=== PATIENT | male | born 1955 | race Caucasian/White ===

== ENCOUNTER 2016-05-22 08:26 | Emergency (ER) | payer MEDICARE, OTHER ==
[2016-05-22 08:47] VITALS: BP 179/86; PULSE 76; RESP 20; TEMP 97.8
[2016-05-22] MEDS ORDERED: HYDROcodone/APAP 5-325MG 1 EACH TAB PO STA (08:55)
--- NOTE | 2016-05-22 09:00 | ED ---
General Adult HPI - General Chief complaint: Abdominal Pain Stated complaint: Shingles Time Seen by Provider: 05/22/16 08:49 Source: patient, RN notes reviewed Mode of arrival: ambulatory Limitations: no limitations - History of Present Illness Initial comments: 61-year-old male presents to the emergency Department chief complaint of left- sided abdominal pain. Patient states that he has been having this pain for the last week or so. Patient states he went to his doctor he was diagnosed with shingles he was started on antiviral. Patient states he stopped taking it because he felt that he is having symptoms to it. Patient states she is not given steroids or any pain medication. Patient states the pain just keeps getting worse. Patient states the whole left side of his abdomen he states he just scratches his skin or even where his T-shirt it causes some have increased pain. Patient states he cannot sleep due to the pain. Patient has not been taking any pain medication for this. He denies any fever chills any nausea vomiting. Patient states his belly pain feels more on the skin where the shingles is. Patient states he is just so uncomfortable 3 thought that he should be evaluated. Patient states that he hasn't had any other symptoms with this. Patient does admit to a history of shingles in the past. Patient denies any recent fever, chills, shortness of breath, chest pain, back pain, nausea vomiting, numbness or tingling, dysuria or hematuria, constipation or diarrhea, headaches or visual changes, or any other current symptoms. - Related Data Previous Rx's Medication Instructions Recorded Famciclovir [Famvir] 500 mg PO Q8HR #21 tablet 05/22/16 Hydrocodone/Acetaminophen [Lockhart 1 each PO Q6HR PRN #20 tab 05/22/16 5-325] methylPREDNISolone Dose Pack 4 mg PO DIRECTED #21 package 05/22/16 [Medrol Dose Pack] Allergies Allergy/AdvReac Type Severity Reaction Status Date / Time Penicillins Allergy Unknown Verified 05/22/16 08:47 poison oak extract Allergy Unknown Verified 05/22/16 08:47 poison sumac extract Allergy Unknown Verified 05/22/16 08:47 prochlorperazine Allergy Unknown Verified 05/22/16 08:47 [From Compazine] Review of Systems ROS Statement: Those systems with pertinent positive or pertinent negative responses have been documented in the HPI. ROS Other: All systems not noted in ROS Statement are negative. Past Medical History Additional Past Medical History / Comment(s): shingles History of Any Multi-Drug Resistant Organisms: None Reported Past Surgical History: Joint Replacement, Orthopedic Surgery Additional Past Surgical History / Comment(s): cervical fusion, right hip replacement, sinus surgery Past Psychological History: No Psychological Hx Reported Smoking Status: Current every day smoker Past Alcohol Use History: Occasional Past Drug Use History: None Reported General Exam Limitations: no limitations General appearance: alert, in no apparent distress Eye exam: Present: normal appearance, PERRL, EOMI. Absent: scleral icterus, conjunctival injection, periorbital swelling ENT exam: Present: normal exam, mucous membranes moist Neck exam: Present: normal inspection. Absent: tenderness, meningismus, lymphadenopathy Respiratory exam: Present: normal lung sounds bilaterally. Absent: respiratory distress, wheezes, rales, rhonchi, stridor Cardiovascular Exam: Present: regular rate, normal rhythm, normal heart sounds. Absent: systolic murmur, diastolic murmur, rubs, gallop, clicks GI/Abdominal exam: Present: soft, normal bowel sounds. Absent: distended, tenderness, guarding, rebound, rigid Neurological exam: Present: alert, oriented X3, CN II-XII intact. Absent: motor sensory deficit Skin exam: Present: warm, dry, intact, rash (Vesicular type rash along the left side starting in the back wrapping around the front does not cross midline), other (Patient has sensation to the slightness scratch his skin causing pain) Course Vital Signs 05/22/16 08:43 Temperature 97.8 F Pulse Rate 76 Respiratory 20 Rate Blood Pressure 179/86 O2 Sat by Pulse 99 Oximetry Medical Decision Making - Medical Decision Making 61-year-old male presents with appears to be shingles. At this time we will start the patient on famciclovir as well as steroids as well as pain medication. We did discuss taking these medications prescribed we discussed return parameters and follow-up. Patient stated that he understood and all questions have been answered. This time the patient will be discharged home. Disposition Clinical Impression: Herpes zoster Disposition: HOME SELF-CARE Condition: Stable Instructions: Shingles (ED) Additional Instructions: Please use medication as discussed. Please follow up with family doctor if symptoms have not improved over the next two days. Please return to the emergency room if your symptoms increase or worsen or for any other concerns. Prescriptions: Famciclovir [Famvir] 500 mg PO Q8HR #21 tablet Hydrocodone/Acetaminophen [Lockhart 5-325] 1 each PO Q6HR PRN #20 tab PRN Reason: Pain methylPREDNISolone Dose Pack [Medrol Dose Pack] 4 mg PO DIRECTED #21 package Referrals: None,Stated [Primary Care Provider] - 1-2 days Emily Nichole MD [STAFF PHYSICIAN] - 1-2 days Time of Disposition: 08:59
[2016-05-22] MEDS ORDERED: methylPREDNISolone SOD SUCCI 125 MG/2 ML VIAL IM ONE (09:13)
== END 2016-05-22 09:25 | disposition home or self-care (01) ==
LOC: EC 08:26
DX: B02.9 Zoster without complications (principal); R10.9 Unspecified abdominal pain; F17.200 Nicotine dependence, unspecified, uncomplicated; Z88.0 Allergy status to penicillin; Z88.8 Allergy status to other drugs, medicaments and biological substances
CPT/HCPCS: 99283; 96372; J2930

== ENCOUNTER → 2016-06-15 | Outpatient (CLI) | payer MEDICARE ==
--- NOTE | 2016-06-15 08:56 | CT ---
EXAMINATION TYPE: CT abdomen w con DATE OF EXAM: 06/15/2016 8:38 AM COMPARISON: NONE HISTORY: 61-year-old male with abdominal pain, LLQ pain TECHNIQUE: Contiguous axial scanning of the abdomen following administration of 100 ml Omnipaque 300 IV contrast. Delayed images through the kidneys and coronal/sagittal reconstructions performed. CT DLP: 1198.2 mGycm Automated exposure control for dose reduction was used. FINDINGS: The heart is normal size without pericardial effusion. Lung bases are clear without pleural effusion. On portal venous phase, there is diminished attenuation of the liver as compared to the spleen. A 1. 9 cm area of nodular enhancement which follows the blood pool within the posterior right hepatic lobe , axial image 18 most likely represents a hemangioma. Portal venous system is patent. No biliary duct al dilatation. Gallbladder, adrenal glands, right kidney, spleen, and pancreas appear within normal limits. There is symmetric uptake and excretion of contrast by both kidneys but a striated area of hypodensit y within the posterior lower pole left kidney, delayed series axial image 36, which may relate to vipul e perfusion variation. No dilated small bowel, free fluid, or free air. Scattered nonenlarged external and retroperitoneal lymph nodes are seen. No lymphadenopathy by CT siz e criteria. Appendix is normal. There is moderate stool burden and mild left hemicolonic diverticulosis without p ericolonic inflammatory change. The pelvis is not imaged. Moderate atherosclerotic calcifications within the abdominal aorta with a couple areas of focal ectas ia of the infrarenal abdominal aorta measuring 2.9 and 2.5 cm, respectively, on axial images 35 and 4 2. No traci AAA. Bones: Degenerative changes lower lumbar spine. No osseous destructive process. IMPRESSION: 1. A STRIATED AREA OF HYPODENSITY WITHIN THE POSTERIOR LOWER POLE LEFT KIDNEY MAY REPRESENT SOME TYPE OF PERFUSION VARIATION. CORRELATE FOR ANY CLINICAL SIGNS/SYMPTOMS OF PYELONEPHRITIS. 2. HEPATIC STEATOSIS. CORRELATE WITH LFT's, LIPID PROFILE, AND PATIENT RISK FACTORS. 3. MODERATE ATHEROSCLEROTIC CALCIFICATIONS OF THE ABDOMINAL AORTA WITH A COUPLE AREAS OF FUSIFORM ECT EJ OF THE INFRARENAL ABDOMINAL AORTA MEASURING UP TO 2.9 CM. 4. MILD LEFT HEMICOLONIC DIVERTICULOSIS.
== END | disposition home or self-care (01) ==
LOC: RADCTMAIN 07:56
PROVIDERS: ATTEND Family Medicine
DX: I77.811 Abdominal aortic ectasia (principal); K76.0 Fatty (change of) liver, not elsewhere classified; K57.30 Diverticulosis of large intestine without perforation or abscess without bleeding; I70.0 Atherosclerosis of aorta; N28.89 Other specified disorders of kidney and ureter
CPT/HCPCS: 74160; Q9967; 81001; 87086

== ENCOUNTER → 2016-06-20 | Outpatient (CLI) | payer MEDICARE ==
--- NOTE | 2016-06-20 10:52 | US ---
EXAMINATION TYPE: US duplex aorta DATE OF EXAM: 06/20/2016 9:12 AM COMPARISON: NONE CLINICAL HISTORY: 61-year-old male with abnormal CT R93.429 N92.8, known Renal Disease. TECHNIQUE: Multiple sonographic images of the abdominal aorta were obtained. FINDINGS: EXAM MEASUREMENTS: Abdominal Aorta: Proximal: 2.0 Mid: 1.8 Distal: 1.7 Bifurcation: obscured by overlying bowel gas TECHNOLOGIST NOTES: Patient had extensive peristalsing bowel gas making exam technically difficult, not all portions of aorta visualized IMPRESSION: Limited exam as there is extensive bowel gas obscuring portions of the aorta. Not all portions were e valuated. The fusiform ectasia seen on CT of 06/15/2016 is not appreciable on the current exam.
--- NOTE | 2016-06-20 11:04 | US ---
EXAMINATION TYPE: US kidneys/renal and bladder DATE OF EXAM: 06/20/2016 9:02 AM COMPARISON: Correlation CT 06/15/2016 CLINICAL HISTORY: 61-year-old male abnormal CT R93.429, N92.8 known Renal Disease. TECHNIQUE: Multiple sonographic images of the kidneys and bladder were obtained. FINDINGS: Right Kidney: 11.8 x 5.4x 5.0 cm Left Kidney: 11.0 x 5.6 x 5.2 cm There is no hydronephrosis on either side. Partial distention of the bladder limits its evaluation. IMPRESSION: No hydronephrosis. Partial distention of the bladder limits its evaluation.
== END ==
LOC: RADUSWWP 08:07
PROVIDERS: ATTEND Family Medicine
DX: N32.89 Other specified disorders of bladder (principal); R93.429 Abnormal radiologic findings on diagnostic imaging of unspecified kidney
CPT/HCPCS: 76770; 93979

== ENCOUNTER 2016-09-27 12:29 | Day surgery (SDC) | payer MEDICARE ==
[2016-09-25 09:35] VITALS: BMI 29.1
[~2016-09-27 12:29] MED LIST: LACTATED RINGERS 1,000 ML IV SCH; LIDOCAINE 1% 20 ML VIAL (10MG/ML) FOR IV START INTRADERMA PRN
[2016-09-27 12:43] VITALS: RESP 16; TEMP 97.6
[2016-09-27] MEDS ORDERED: PROPOFOL 10 MG/ML 20 ML VIAL IV ONE (13:00)
[2016-09-27] MEDS ORDERED: LIDOCAINE 1% INJ 10MG/ML (20 ML MDV) ONE (13:00)
[2016-09-27] MEDS ORDERED: GLUCAGON 1 MG/ML VIAL ONE (13:00)
--- NOTE | 2016-09-27 13:17 | P.GSHP ---
History of Present Illness H&P Date: 09/27/16 Chief Complaint: Screening colonoscopy This is a 61-year-old male who presents today for screening colonoscopy. His last colonoscopy was approximately 30 years ago. He denies a significant GI complaints. - Constitutional Constitutional: Reports as per HPI Past Medical History Past Medical History: Asthma, Cancer, Skin Disorder, Sleep Apnea/CPAP/BIPAP Additional Past Medical History / Comment(s): childhood asthma, no cpap used, abdominal pain and bloating, arthritis in back,neck and knees, rosacea, urinary leakage, hx skin cancer History of Any Multi-Drug Resistant Organisms: None Reported Past Surgical History: Joint Replacement, Orthopedic Surgery Additional Past Surgical History / Comment(s): cervical fusion, right hip replacement, septoplasty, arthroscopy rt knee Past Anesthesia/Blood Transfusion Reactions: No Reported Reaction Smoking Status: Current every day smoker - Past Family History Mother Family Medical History: Cancer Medications and Allergies Home Medications Medication Instructions Recorded Confirmed Type Dextroamphetamine/Amphetamine 20 mg PO QAM 05/22/16 09/27/16 History [Adderall] Pregabalin [Lyrica] 100 mg PO BID 09/25/16 09/27/16 History Sertraline HCl [Zoloft] 25 mg PO DAILY 09/25/16 09/27/16 History Allergies Allergy/AdvReac Type Severity Reaction Status Date / Time acyclovir Allergy Swelling Verified 09/25/16 09:17 Penicillins Allergy Unknown Verified 09/25/16 09:17 poison dylon extract Allergy Unknown Verified 09/25/16 09:17 poison oak extract Allergy Unknown Verified 09/25/16 09:17 poison sumac extract Allergy Unknown Verified 09/25/16 09:17 prochlorperazine Allergy Unknown Verified 09/25/16 09:17 [From Compazine] Surgical - Exam Vital Signs Temp Pulse Resp BP Pulse Ox 97.6 F 80 16 142/60 99 09/27/16 12:42 09/27/16 12:42 09/27/16 12:42 09/27/16 12:42 09/27/16 12:42 - General well developed, no distress - Eyes PERRL - ENT normal pinna - Neck no masses - Respiratory normal expansion - Cardiovascular Rhythm: regular - Abdomen Abdomen: soft, non tender Assessment and Plan Plan: We'll perform screening colonoscopy.
--- NOTE | 2016-09-27 13:27 | P.OP ---
Date of Procedure: 09/27/16 Preoperative Diagnosis: Screening colonoscopy Postoperative Diagnosis: Colon polyp Mild diverticulosis Procedure(s) Performed: Colonoscopy Implants: Anesthesia: MAC Surgeon: Marcelo Dempsey Pathology: other (Right colon polyp) Condition: stable Disposition: PACU Indications for Procedure: Operative Findings: Description of Procedure: The patient's placed on the endoscopy table in the lateral position. He received IV sedation. The digital rectal exam was performed which revealed no abnormalities. The prostate was symmetric without nodules. The flexible colonoscope was then placed patient anus and passed throughout the entire colon. The ileocecal valve was visualized. Cecum appeared normal. In the ascending colon there is a small polyp was removed the forcep. The remainder the ascending colon appeared normal. The transverse colon descending colon appeared normal. In the sigmoid colon a few scattered diverticula. Scope was then brought back the rectum and this appeared normal. Scope was brought patient.
[2016-09-27 14:05] VITALS: BP 140/70; PULSE 74
== END 2016-09-27 14:08 | disposition home or self-care (01) ==
LOC: ORWHC2ENDO 12:29
PROVIDERS: ATTEND Surgery
DX: Z12.11 Encounter for screening for malignant neoplasm of colon (principal); K63.5 Polyp of colon; K57.30 Diverticulosis of large intestine without perforation or abscess without bleeding; F39 Unspecified mood [affective] disorder; Z79.899 Other long term (current) drug therapy; Z88.0 Allergy status to penicillin; Z88.8 Allergy status to other drugs, medicaments and biological substances; Z91.09 Other allergy status, other than to drugs and biological substances
CPT/HCPCS: 88305; J1610; J2001; J2704; G0121; 45380

== ENCOUNTER 2017-06-07 03:19 | Emergency (ER) | payer MEDICARE ==
[2017-06-07 03:26] VITALS: PULSE 70; RESP 18; TEMP 97.5
[2017-06-07] MEDS ORDERED: hydrOXYzine HCL 25 MG TAB PO STA (03:41)
[2017-06-07] MEDS ORDERED: predniSONE 50 MG TAB PO STA (03:42)
--- NOTE | 2017-06-07 03:45 | ED ---
Skin/Abscess/FB HPI - General Chief complaint: Skin/Abscess/Foreign Body Stated complaint: arm infection,bug bite Time Seen by Provider: 06/07/17 03:32 Source: patient, RN notes reviewed Mode of arrival: ambulatory Limitations: no limitations - History of Present Illness Initial comments: 62-year-old male presents emergency Department chief complaint of rash on his arms. Patient states she's been dealing with insects in rashes for several months secondary to living situations. Patient states this rash is different started tonight. He states he does have cats in the household in which she uses advantage my control along with flea collars. Patient states that this is different. He states that is not, contacted 9 different from usual. Patient has been the multiple dermatologists and his primary: The he may have some underlying psychological issues. - Related Data Home Medications Medication Instructions Recorded Confirmed Dextroamphetamine/Amphetamine 20 mg PO QAM 05/22/16 06/07/17 [Adderall] Pregabalin [Lyrica] 100 mg PO BID 09/25/16 06/07/17 Sertraline HCl [Zoloft] 25 mg PO DAILY 09/25/16 06/07/17 Previous Rx's Medication Instructions Recorded Triamcinolone 0.1% Cream [Kenalog] 1 applicatio TOPICAL BID #30 gram 06/07/17 hydrOXYzine HCL [Atarax] 25 mg PO TID PRN #15 tab 06/07/17 Allergies Allergy/AdvReac Type Severity Reaction Status Date / Time acyclovir Allergy Swelling Verified 06/07/17 03:26 Penicillins Allergy Unknown Verified 06/07/17 03:26 poison dylon extract Allergy Unknown Verified 06/07/17 03:26 poison oak extract Allergy Unknown Verified 06/07/17 03:26 poison sumac extract Allergy Unknown Verified 06/07/17 03:26 prochlorperazine Allergy Unknown Verified 06/07/17 03:26 [From Compazine] pregabalin [From Lyrica] AdvReac can't walk Verified 06/07/17 03:26 Review of Systems ROS Statement: Those systems with pertinent positive or pertinent negative responses have been documented in the HPI. ROS Other: All systems not noted in ROS Statement are negative. Past Medical History Past Medical History: Asthma, Cancer, Skin Disorder, Sleep Apnea/CPAP/BIPAP Additional Past Medical History / Comment(s): childhood asthma, has c pap does not use , arthritis in back,neck and knees, rosacea, urinary leakage, hx skin cancer History of Any Multi-Drug Resistant Organisms: None Reported Past Surgical History: Joint Replacement, Orthopedic Surgery Additional Past Surgical History / Comment(s): cervical fusion, right hip replacement, septoplasty, arthroscopy rt knee Past Anesthesia/Blood Transfusion Reactions: No Reported Reaction Past Psychological History: No Psychological Hx Reported Smoking Status: Current every day smoker Past Alcohol Use History: None Reported Past Drug Use History: None Reported - Past Family History Mother Family Medical History: Cancer General Exam Limitations: no limitations General appearance: alert, in no apparent distress Head exam: Present: atraumatic, normocephalic, normal inspection Respiratory exam: Present: normal lung sounds bilaterally. Absent: respiratory distress, wheezes, rales, rhonchi, stridor Cardiovascular Exam: Present: regular rate, normal rhythm, normal heart sounds. Absent: systolic murmur, diastolic murmur, rubs, gallop, clicks Neurological exam: Present: alert, oriented X3, CN II-XII intact Skin exam: Present: warm, dry, intact, normal color, rash (Multiple areas of excoriation, papular erythematous rash over the bilateral arms slightly vesicular) Course Vital Signs 06/07/17 03:19 Temperature 97.5 F L Pulse Rate 70 Respiratory 18 Rate Blood Pressure 196/88 O2 Sat by Pulse 100 Oximetry Medical Decision Making - Medical Decision Making 62-year-old male present emergency from for rash. Patient appears to have some sort of contact dermatitis other rashes altered secondary to multiple excoriations. Patient we given medication for his pruritus and he'll follow-up with his PCP. Disposition Clinical Impression: Contact dermatitis, Pruritus Disposition: HOME SELF-CARE Condition: Stable Instructions: Dermatitis (ED) Additional Instructions: Please return to the Emergency Department if symptoms worsen or any other concerns. Prescriptions: hydrOXYzine HCL [Atarax] 25 mg PO TID PRN #15 tab PRN Reason: Itching Triamcinolone 0.1% Cream [Kenalog] 1 applicatio TOPICAL BID #30 gram Referrals: Reuben Nicholson MD [Primary Care Provider] - 1-2 days Time of Disposition: 03:44
[2017-06-07 04:06] VITALS: BP 153/72
== END 2017-06-07 04:00 | disposition home or self-care (01) ==
LOC: EC 03:19
DX: L25.9 Unspecified contact dermatitis, unspecified cause (principal); G47.30 Sleep apnea, unspecified; Z99.89 Dependence on other enabling machines and devices; F17.200 Nicotine dependence, unspecified, uncomplicated; Z85.828 Personal history of other malignant neoplasm of skin; Z79.899 Other long term (current) drug therapy; Z88.0 Allergy status to penicillin; Z88.8 Allergy status to other drugs, medicaments and biological substances; Z91.048 Other nonmedicinal substance allergy status
CPT/HCPCS: 99282; J7512

== ENCOUNTER 2017-10-30 17:17 | Emergency (ER) | payer MEDICARE ==
[2017-10-30] MEDS ORDERED: CALCIUM CHLORIDE 100 MG/ML 10 ML SYRINGE IVP STA (18:41)
[2017-10-30] MEDS ORDERED: DEXTROSE 50%-WATER 50 ML SYRINGE IVP STA (18:42)
[2017-10-30] MEDS ORDERED: INSULIN REGULAR 100 UNIT/ML VIAL IV ONE (18:43)
[2017-10-30 19:38] LABS: Appearance,Urine Clear (Clear); Bilirubin,Urine Negative (Negative); Blood,Urine Negative (Negative); Color,Urine Yellow; Glucose,Urine (UA) Negative (Negative); Hyaline Casts,Urine 1 /lpf (0-2); Ketones,Urine Negative (Negative); Leukocyte Esterase,Urine Trace (Negative); Mucus,Urine Rare /hpf; Nitrite,Urine Negative (Negative); Protein,Urine Negative (Negative); RBC,Urine <1 /hpf (0-5); Specific Gravity,Urine 1.014 (1.001-1.035); Squamous Epithelial Cell,Urine <1 /hpf (0-4); Urobilinogen,Urine <2.0 mg/dL (<2.0); WBC,Urine 2 /hpf (0-5)
[2017-10-30] MEDS ORDERED: ALBUTEROL NEBULIZED 2.5 MG/3 ML INHALATION SCH (20:00)
[2017-10-30] MEDS ORDERED: SODIUM CHLORIDE 0.9% 500 ML IV ONE (20:17)
--- NOTE | 2017-10-30 20:17 | ED ---
Recheck HPI - General Chief Complaint: Recheck/Abnormal Lab/Rx Stated Complaint: abn labs Time Seen by Provider: 10/30/17 18:38 Source: patient Mode of arrival: wheelchair Limitations: no limitations - History of Present Illness Initial Comments: 62 years old male home was sent in to the ER he had lab work done today he scheduled for a left hip surgery and now his potassium was high is a 6.3 he himself has no complaints is denying any headaches no neck stiffness or chest pain or shortness of breath - Related Data Home Medications Medication Instructions Recorded Confirmed Dextroamphetamine/Amphetamine 20 mg PO QAM 05/22/16 10/30/17 [Adderall] Sertraline HCl [Zoloft] 25 mg PO DAILY 09/25/16 10/30/17 Topiramate [Topamax] 100 mg PO BID 10/24/17 10/30/17 Multivitamin,Therapeutic [Thera] 1 tab PO DAILY 10/30/17 10/30/17 Allergies Allergy/AdvReac Type Severity Reaction Status Date / Time duloxetine [From Cymbalta] Allergy Severe throat Verified 10/30/17 18:24 swelling, could not swallow prochlorperazine Allergy Severe stroke Verified 10/30/17 18:24 [From Compazine] acyclovir Allergy Swelling Verified 10/30/17 18:24 Penicillins Allergy Swelling Verified 10/30/17 18:24 poison dylon extract Allergy Unknown Verified 10/30/17 18:24 poison oak extract Allergy Unknown Verified 10/30/17 18:24 poison sumac extract Allergy Unknown Verified 10/30/17 18:24 pregabalin [From Lyrica] AdvReac can't Verified 10/30/17 18:24 walk, muscle and joint pain Review of Systems ROS Statement: Those systems with pertinent positive or pertinent negative responses have been documented in the HPI. ROS Other: All systems not noted in ROS Statement are negative. 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), varicose veins, hx kidney stones, "spasmotic torticollis dystonia", recent cellulitis legs(tx with antibiotics) History of Any Multi-Drug Resistant Organisms: None Reported Past Surgical History: Joint Replacement, Orthopedic Surgery Additional Past Surgical History / Comment(s): cervical fusion, right hip replacement, septoplasty, arthroscopy rt knee Past Anesthesia/Blood Transfusion Reactions: No Reported Reaction Additional Past Anesthesia/Blood Transfusion Reaction / Comment(s): states no diff intubation Past Psychological History: No Psychological Hx Reported Smoking Status: Current some day smoker - Past Family History Mother Family Medical History: Cancer, Deep Vein Thrombosis (DVT) General Exam Limitations: no limitations Course Vital Signs 10/30/17 10/30/17 10/30/17 18:02 19:45 19:52 Temperature 97.9 F Pulse Rate 95 94 94 Respiratory 16 Rate Blood Pressure 142/67 O2 Sat by Pulse 99 Oximetry I am EKG is sinus ventricular rate is 91 [place] interval is 148 QRS duration is 82 QT/QTC 374/460 review of this EKG reveals no ST elevation, noticed some T-wave inversion in lead 3 and some flattening of the T-wave in V6. Calcium was rechecked, it's within normal range now patient is feeling fine he be discharged home to follow with his family doctor Medical Decision Making - Lab Data Result diagrams: 10/30/17 20:28 Lab Results 10/30/17 10/30/17 10/30/17 Range/Units 19:07 19:10 20:28 Potassium 3.8 (3.5-5.1) mmol/L Magnesium 2.2 (1.6-2.3) mg/dL Urine Color Yellow Urine Appearance Clear (Clear) Urine pH 6.0 (5.0-8.0) Ur Specific [place] 1.014 (1.001-1.035) Urine Protein Negative (Negative) Urine Glucose (UA) Negative (Negative) Urine Ketones Negative (Negative) Urine Blood Negative (Negative) Urine Nitrite Negative (Negative) Urine Bilirubin Negative (Negative) Urine Urobilinogen <2.0 (<2.0) mg/dL Ur Leukocyte Esterase Trace H (Negative) Urine RBC <1 (0-5) /hpf Urine WBC 2 (0-5) /hpf Ur Squamous Epith Cells <1 (0-4) /hpf Hyaline Casts 1 (0-2) /lpf Urine Mucus Rare H (None) /hpf Disposition Clinical Impression: Hyperkalemia Disposition: HOME SELF-CARE Condition: Good Instructions: Hyperkalemia (ED) Is patient prescribed a controlled substance at d/c from ED?: No Referrals: Reuben Nicholson MD [Primary Care Provider] - 1-2 days
[2017-10-30 21:51] VITALS: RESP 18
[2017-10-30 21:59] VITALS: BP 151/70; PULSE 95; TEMP 98.9
== END 2017-10-30 22:03 | disposition home or self-care (01) ==
LOC: EC 17:17
DX: E87.5 Hyperkalemia (principal); M19.90 Unspecified osteoarthritis, unspecified site; F17.200 Nicotine dependence, unspecified, uncomplicated; Z86.73 Personal history of transient ischemic attack (TIA), and cerebral infarction without residual deficits; Z96.641 Presence of right artificial hip joint; Z85.9 Personal history of malignant neoplasm, unspecified; Z79.899 Other long term (current) drug therapy; Z88.0 Allergy status to penicillin; Z88.8 Allergy status to other drugs, medicaments and biological substances; Z91.048 Other nonmedicinal substance allergy status
CPT/HCPCS: 36415; 81001; 83735; 84132; 93005; 94640; 96361; 96374; 96375; 99283

== ENCOUNTER → 2017-10-30 | Outpatient (CLI) | payer MEDICARE ==
[2017-10-30 16:11] LABS: HCT 39.3 % (39.0-53.0); HGB 12.8 gm/dL (13.0-17.5); MCHC 32.6 g/dL (31.0-37.0); MCV 94.9 fL (80.0-100.0); Mean Platelet Volume 6.8; Platelet Count 416 k/uL (150-450); RBC 4.14 m/uL (4.30-5.90); RDW 14.3 % (11.5-15.5); WBC 10.1 k/uL (3.8-10.6)
[2017-10-30 16:16] LABS: Appearance,Urine Clear (Clear); Bilirubin,Urine Negative (Negative); Blood,Urine Negative (Negative); Color,Urine Yellow; Glucose,Urine (UA) Negative (Negative); Hyaline Casts,Urine 5 /lpf (0-2); Ketones,Urine Negative (Negative); Leukocyte Esterase,Urine Small (Negative); Mucus,Urine Rare /hpf; Nitrite,Urine Negative (Negative); PH, Urine 5.5 (5.0-8.0); Protein,Urine Trace (Negative); RBC,Urine 3 /hpf (0-5); Specific Gravity,Urine 1.016 (1.001-1.035); Squamous Epithelial Cell,Urine <1 /hpf (0-4); Urobilinogen,Urine <2.0 mg/dL (<2.0); WBC,Urine 7 /hpf (0-5)
[2017-10-30 16:18] LABS: Albumin 4.4 g/dL (3.5-5.0); Calcium 10.9 mg/dL (8.4-10.2); Total Bilirubin 0.3 mg/dL (0.2-1.3)
[2017-10-30 16:23] LABS: INR 0.9 (<1.2); Prothrombin Time 9.3 sec (9.0-12.0)
[2017-10-30 16:30] LABS: Partial Thromboplastin Time 21.6 sec (22.0-30.0)
[2017-10-30 16:41] LABS: Potassium 6.3 mmol/L (3.5-5.1)
== END | disposition home or self-care (01) ==
LOC: LABPAT 14:47
PROVIDERS: ATTEND Orthopaedic Surgery
DX: Z01.812 Encounter for preprocedural laboratory examination (principal)
CPT/HCPCS: 80053; 81001; 85027; 85610; 85730; 87070

== ENCOUNTER 2017-10-31 15:12 | Emergency (ER) | payer OTHER, MEDICARE ==
[2017-10-31] MEDS ORDERED: SODIUM CHLORIDE 0.9% 1,000 ML IV STA (15:36)
--- NOTE | 2017-10-31 15:50 | ED ---
General Adult HPI - General Chief complaint: Extremity Problem,Nontraumatic Stated complaint: Tingling/Burning in Hands Time Seen by Provider: 10/31/17 15:20 Source: patient, RN notes reviewed, old records reviewed Mode of arrival: ambulatory Limitations: no limitations - History of Present Illness Initial comments: This is a 62-year-old male the ER for evaluation. Today she presents for evaluation regarding numbness tingling of extremities. Patient does have mild psychiatric history, patient was seen in the ER yesterday for elevated potassium. Patient's getting potassium drawn in regards to recent hip replacement surgery. Patient states the symptoms that is been having regarding the nose and feeling of been going on for years, symptoms have been persistent also into today. Patient states he was in ER yesterday for about 4 hours treated for elevated - Related Data Home Medications Medication Instructions Recorded Confirmed Dextroamphetamine/Amphetamine 20 mg PO QAM 05/22/16 10/31/17 [Adderall] Sertraline HCl [Zoloft] 25 mg PO DAILY 09/25/16 10/31/17 Topiramate [Topamax] 100 mg PO BID 10/24/17 10/31/17 Multivitamin,Therapeutic [Thera] 1 tab PO DAILY 10/30/17 10/31/17 Naproxen [Naprosyn] 500 mg PO Q12H PRN 10/31/17 10/31/17 Allergies Allergy/AdvReac Type Severity Reaction Status Date / Time duloxetine [From Cymbalta] Allergy Severe throat Verified 10/31/17 15:57 swelling, could not swallow prochlorperazine Allergy Severe stroke Verified 10/31/17 15:57 [From Compazine] acyclovir Allergy Swelling Verified 10/31/17 15:57 Penicillins Allergy Swelling Verified 10/31/17 15:57 poison dylon extract Allergy Unknown Verified 10/31/17 15:57 poison oak extract Allergy Unknown Verified 10/31/17 15:57 poison sumac extract Allergy Unknown Verified 10/31/17 15:57 pregabalin [From Lyrica] AdvReac can't Verified 10/31/17 15:57 walk, muscle and joint pain Review of Systems ROS Statement: Those systems with pertinent positive or pertinent negative responses have been documented in the HPI. ROS Other: All systems not noted in ROS Statement are negative. 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), varicose veins, hx kidney stones, "spasmotic torticollis dystonia", recent cellulitis legs(tx with antibiotics) History of Any Multi-Drug Resistant Organisms: None Reported Past Surgical History: Joint Replacement, Orthopedic Surgery Additional Past Surgical History / Comment(s): cervical fusion, right hip replacement, septoplasty, arthroscopy rt knee Past Anesthesia/Blood Transfusion Reactions: No Reported Reaction Additional Past Anesthesia/Blood Transfusion Reaction / Comment(s): states no diff intubation Past Psychological History: No Psychological Hx Reported Smoking Status: Current every day smoker Past Alcohol Use History: None Reported Past Drug Use History: None Reported - Past Family History Mother Family Medical History: Cancer, Deep Vein Thrombosis (DVT) General Exam Limitations: no limitations General appearance: alert, in no apparent distress Head exam: Present: atraumatic, normocephalic, normal inspection Eye exam: Present: normal appearance, PERRL, EOMI. Absent: scleral icterus, conjunctival injection, periorbital swelling ENT exam: Present: normal exam, mucous membranes moist Neck exam: Present: normal inspection. Absent: tenderness, meningismus, lymphadenopathy Respiratory exam: Present: normal lung sounds bilaterally. Absent: respiratory distress, wheezes, rales, rhonchi, stridor Cardiovascular Exam: Present: regular rate, normal rhythm, normal heart sounds. Absent: systolic murmur, diastolic murmur, rubs, gallop, clicks GI/Abdominal exam: Present: soft, normal bowel sounds. Absent: distended, tenderness, guarding, rebound, rigid Extremities exam: Present: normal inspection, full ROM, normal capillary refill. Absent: tenderness, pedal edema, joint swelling, calf tenderness Back exam: Present: normal inspection Neurological exam: Present: alert, oriented X3, CN II-XII intact Psychiatric exam: Present: normal affect, normal mood Skin exam: Present: warm, dry, intact, normal color. Absent: rash Course Vital Signs 10/31/17 15:14 Temperature 97.9 F Pulse Rate 70 Respiratory 20 Rate Blood Pressure 150/80 O2 Sat by Pulse 99 Oximetry EKG Findings - EKG Comments: EKG Findings:: EKG shows sinus rhythm rate of 89, VT 150, QRS 80, QTC 464 Medical Decision Making - Medical Decision Making 59 female the ER for evaluation of paresthesias with arm pain leg pain or T wave related to elevated potassium, patient from potassium not elevated, symptoms have been going on for years, patient does have underlying mild psychiatric illness and depression. Patient can be discharged home - Lab Data Result diagrams: 10/31/17 15:50 10/31/17 15:50 Lab Results 10/31/17 10/31/17 10/31/17 Range/Units 15:50 15:50 15:50 WBC 11.6 H (3.8-10.6) k/uL RBC 4.01 L (4.30-5.90) m/uL Hgb 12.4 L (13.0-17.5) gm/dL Hct 37.8 L (39.0-53.0) % MCV 94.1 (80.0-100.0) fL MCH 31.0 (25.0-35.0) pg MCHC 32.9 (31.0-37.0) g/dL RDW 14.5 (11.5-15.5) % Plt Count 374 (150-450) k/uL Neutrophils % 67 % Lymphocytes % 20 % Monocytes % 6 % Eosinophils % 3 % Basophils % 1 % Neutrophils # 7.7 (1.3-7.7) k/uL Lymphocytes # 2.4 (1.0-4.8) k/uL Monocytes # 0.7 (0-1.0) k/uL Eosinophils # 0.4 (0-0.7) k/uL Basophils # 0.1 (0-0.2) k/uL Sodium 139 (137-145) mmol/L Potassium 4.9 (3.5-5.1) mmol/L Chloride 110 H (98-107) mmol/L Carbon Dioxide 20 L (22-30) mmol/L Anion Gap 9 mmol/L BUN 21 H (9-20) mg/dL Creatinine 1.30 H (0.66-1.25) mg/dL Est GFR (CKD-EPI)AfAm 67 (>60 ml/min/1.73 sqM) Est GFR (CKD-EPI)NonAf 58 (>60 ml/min/1.73 sqM) Glucose 101 H (74-99) mg/dL Calcium 10.3 H (8.4-10.2) mg/dL Phosphorus 3.9 (2.5-4.5) mg/dL Magnesium 2.0 (1.6-2.3) mg/dL Total Bilirubin 0.3 (0.2-1.3) mg/dL AST 22 (17-59) U/L ALT 37 (21-72) U/L Alkaline Phosphatase 83 (38-126) U/L Total Creatine Kinase 105 (55-170) U/L CK-MB (CK-2) 1.9 (0.0-2.4) ng/mL CK-MB (CK-2) Rel Index 1.8 Troponin I <0.012 (0.000-0.034) ng/mL Total Protein 6.5 (6.3-8.2) g/dL Albumin 4.1 (3.5-5.0) g/dL Disposition Clinical Impression: Paresthesia, Anxiety Disposition: HOME SELF-CARE Condition: Good Instructions: Paresthesia (ED) Is patient prescribed a controlled substance at d/c from ED?: No Referrals: Reuben Nicholson MD [Primary Care Provider] - 1-2 days
[2017-10-31 16:17] LABS: Basophils # (A) 0.1 k/uL (0-0.2); Basophils % (A) 1 %; Eosinophils # (A) 0.4 k/uL (0-0.7); Eosinophils % (A) 3 %; HCT 37.8 % (39.0-53.0); HGB 12.4 gm/dL (13.0-17.5); Lymphocytes # (A) 2.4 k/uL (1.0-4.8); Lymphocytes % (A) 20 %; MCHC 32.9 g/dL (31.0-37.0); MCV 94.1 fL (80.0-100.0); Mean Platelet Volume 6.8; Monocytes # (A) 0.7 k/uL (0-1.0); Monocytes % (A) 6 %; Neutrophils # (A) 7.7 k/uL (1.3-7.7); Neutrophils % (A) 67 %; Platelet Count 374 k/uL (150-450); RBC 4.01 m/uL (4.30-5.90); RDW 14.5 % (11.5-15.5); WBC 11.6 k/uL (3.8-10.6)
[2017-10-31 16:28] LABS: Albumin 4.1 g/dL (3.5-5.0); Calcium 10.3 mg/dL (8.4-10.2); Creatine Kinase 105 U/L (55-170); Phosphorus 3.9 mg/dL (2.5-4.5); Potassium 4.9 mmol/L (3.5-5.1); Total Bilirubin 0.3 mg/dL (0.2-1.3); Total Protein 6.5 g/dL (6.3-8.2)
[2017-10-31 16:40] LABS: Creatine Kinase MB 1.9 ng/mL (0.0-2.4); Troponin I <0.012 ng/mL (0.000-0.034)
[2017-10-31 17:24] VITALS: BP 123/70; PULSE 75; RESP 18; TEMP 98.2
== END 2017-10-31 17:23 | disposition home or self-care (01) ==
LOC: EC 15:12
DX: F41.9 Anxiety disorder, unspecified (principal); R20.2 Paresthesia of skin; F32.9 Major depressive disorder, single episode, unspecified; R20.0 Anesthesia of skin; F17.200 Nicotine dependence, unspecified, uncomplicated; Z79.899 Other long term (current) drug therapy; Z88.0 Allergy status to penicillin; Z88.8 Allergy status to other drugs, medicaments and biological substances; Z91.048 Other nonmedicinal substance allergy status; Z86.69 Personal history of other diseases of the nervous system and sense organs; Z96.641 Presence of right artificial hip joint
CPT/HCPCS: 36415; 80053; 82550; 82553; 83735; 84100; 84484; 85025; 93005; 96360; 99284

== ENCOUNTER 2018-03-03 18:01 | Emergency (ER) | payer MEDICARE ==
[2018-03-03 18:17] VITALS: TEMP 98.4
--- NOTE | 2018-03-03 18:44 | ED ---
General Adult HPI - General Chief complaint: Abdominal Pain Stated complaint: ABDOMINAL PAIN Time Seen by Provider: 03/03/18 18:19 Source: patient, RN notes reviewed Mode of arrival: wheelchair Limitations: no limitations - History of Present Illness Initial comments: 62-year-old male presents to the emergency department for a chief complaint of abdominal pain and distention 2-3 months. Patient states the pain is umbilical. Patient states it is sharp and radiates to his penis and rectum. He describes the pain as constant in nature. Patient admits to dysuria and urinary frequency. He denies noticing blood in the urine. Patient also has worsening pain with bowel movements. He admits to noticing bright red blood in the stool at times. Patient states he had 2 normal bowel movements earlier today. He states he had a colonoscopy 1 year ago which was normal. Patient states he also thinks he urinated out a bug a couple months ago. Patient denies a history of cancer.Patient has no other complaints at this time including shortness of breath, chest pain, nausea or vomiting, headache, or visual changes. - Related Data Home Medications Medication Instructions Recorded Confirmed Dextroamphetamine/Amphetamine 20 mg PO QAM 05/22/16 10/31/17 [Adderall] Sertraline HCl [Zoloft] 25 mg PO DAILY 09/25/16 10/31/17 Topiramate [Topamax] 100 mg PO BID 10/24/17 10/31/17 Multivitamin,Therapeutic [Thera] 1 tab PO DAILY 10/30/17 11/01/17 Naproxen [Naprosyn] 500 mg PO Q12H PRN 10/31/17 11/01/17 Previous Rx's Medication Instructions Recorded Dicyclomine [Bentyl] 20 mg PO TID PRN #20 tablet 03/03/18 Sulfamethox-Tmp 800-160Mg [Bactrim 1 tab PO Q12HR #20 tab 03/03/18 DS 800-160 mg] Allergies Allergy/AdvReac Type Severity Reaction Status Date / Time duloxetine [From Cymbalta] Allergy Severe throat Verified 03/03/18 18:17 swelling, could not swallow prochlorperazine Allergy Severe stroke Verified 03/03/18 18:17 [From Compazine] acyclovir Allergy Swelling Verified 03/03/18 18:17 Penicillins Allergy Swelling Verified 03/03/18 18:17 poison dylon extract Allergy Unknown Verified 03/03/18 18:17 poison oak extract Allergy Unknown Verified 03/03/18 18:17 poison sumac extract Allergy Unknown Verified 03/03/18 18:17 pregabalin [From Lyrica] AdvReac can't Verified 03/03/18 18:17 walk, muscle and joint pain Review of Systems ROS Statement: Those systems with pertinent positive or pertinent negative responses have been documented in the HPI. ROS Other: All systems not noted in ROS Statement are negative. 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), varicose veins, hx kidney stones, "spasmotic torticollis dystonia", recent cellulitis legs(tx with antibiotics) History of Any Multi-Drug Resistant Organisms: None Reported Past Surgical History: Joint Replacement, Orthopedic Surgery Additional Past Surgical History / Comment(s): cervical fusion, right hip replacement, septoplasty, arthroscopy rt knee Past Anesthesia/Blood Transfusion Reactions: No Reported Reaction Additional Past Anesthesia/Blood Transfusion Reaction / Comment(s): states no diff intubation Past Psychological History: No Psychological Hx Reported Smoking Status: Current every day smoker Past Alcohol Use History: None Reported Past Drug Use History: None Reported - Past Family History Mother Family Medical History: Cancer, Deep Vein Thrombosis (DVT) General Exam Limitations: no limitations General appearance: alert, in no apparent distress Head exam: Present: atraumatic, normocephalic, normal inspection Eye exam: Present: normal appearance, PERRL, EOMI. Absent: scleral icterus, conjunctival injection, periorbital swelling ENT exam: Present: normal exam, mucous membranes moist Neck exam: Present: normal inspection, full ROM. Absent: tenderness, meningismus, lymphadenopathy Respiratory exam: Present: normal lung sounds bilaterally. Absent: respiratory distress, wheezes, rales, rhonchi, stridor Cardiovascular Exam: Present: regular rate, normal rhythm, normal heart sounds. Absent: systolic murmur, diastolic murmur, rubs, gallop, clicks GI/Abdominal exam: Present: soft, tenderness (mild RLQ and LUQ tenderness, no guarding, ), normal bowel sounds. Absent: distended, guarding, rebound, rigid Rectal exam: Present: normal inspection, other (enrichment specialist: Basilia Fung RN). Absent : black stool, bloody stool, fecal impaction, hemorrhoids, mass, tenderness exam: Present: normal inspection, other (enrichment specialist: Basilia Fung). Absent: testicular tenderness, urethral discharge, scrotal swelling, vertical testicular lie, circumcision Neurological exam: Present: alert, oriented X3, CN II-XII intact Psychiatric exam: Present: normal affect, normal mood Course Vital Signs 03/03/18 03/03/18 18:15 21:23 Temperature 98.4 F Pulse Rate 98 87 Respiratory 20 16 Rate Blood Pressure 137/69 142/92 O2 Sat by Pulse 100 100 Oximetry Medical Decision Making - Medical Decision Making 62-year-old male presents to the emergency department for a chief complaint of abdominal pain and distention 2-3 months. Patient states the pain is umbilical and sharp in nature radiating to his penis and rectum. Patient states the pain is worse when having a bowel movement. He admits to mild dysuria. He states he has noticed bright red blood. Exam generally unremarkable. Patient does have minimal right lower quadrant and left upper quadrant tenderness without any guarding. No significant tenderness noted whatsoever. No fissures or hemorrhoids noted of the rectum on exam. No testicular tenderness, erythema or edema. White count is 12.2 which is likely reactive. CMP is unremarkable. Occult blood is negative. Possibly a small urinary tract infection which will be cultured. CT shows a nonobstructing right renal calculus with a normal appendix. At this time it is felt patient can safely follow up outpatient with GI as this has been an ongoing problem for months. Patient was given Bentyl for pain. He was treated with Bactrim for urinary tract infection as he does complain of dysuria. He will return here if he has any worsening symptoms otherwise follow up outpatient with GI. - Lab Data Result diagrams: 03/03/18 19:03 03/03/18 19:03 Lab Results 03/03/18 03/03/18 03/03/18 Range/Units 19: 19: 19:03 WBC 12.2 H (3.8-10.6) k/uL RBC 4.24 L (4.30-5.90) m/uL Hgb 13.2 (13.0-17.5) gm/dL Hct 39.7 (39.0-53.0) % MCV 93.6 (80.0-100.0) fL MCH 31.2 (25.0-35.0) pg MCHC 33.4 (31.0-37.0) g/dL RDW 14.1 (11.5-15.5) % Plt Count 416 (150-450) k/uL Neutrophils % 67 % Lymphocytes % 23 % Monocytes % 5 % Eosinophils % 3 % Basophils % 1 % Neutrophils # 8.1 H (1.3-7.7) k/uL Lymphocytes # 2.8 (1.0-4.8) k/uL Monocytes # 0.6 (0-1.0) k/uL Eosinophils # 0.3 (0-0.7) k/uL Basophils # 0.1 (0-0.2) k/uL Sodium 140 (137-145) mmol/L Potassium 4.9 (3.5-5.1) mmol/L Chloride 112 H (98-107) mmol/L Carbon Dioxide 19 L (22-30) mmol/L Anion Gap 9 mmol/L BUN 21 H (9-20) mg/dL Creatinine 1.17 (0.66-1.25) mg/dL Est GFR (CKD-EPI)AfAm 76 (>60 ml/min/1.73 sqM) Est GFR (CKD-EPI)NonAf 66 (>60 ml/min/1.73 sqM) Glucose 100 H (74-99) mg/dL Calcium 10.4 H (8.4-10.2) mg/dL Total Bilirubin 0.3 (0.2-1.3) mg/dL AST 30 (17-59) U/L ALT 23 (21-72) U/L Alkaline Phosphatase 88 (38-126) U/L Total Protein 7.2 (6.3-8.2) g/dL Albumin 4.3 (3.5-5.0) g/dL Amylase 58 (30-110) U/L Lipase 146 (23-300) U/L Urine Color Urine Appearance (Clear) Urine pH (5.0-8.0) Ur Specific [place] (1.001-1.035) Urine Protein (Negative) Urine Glucose (UA) (Negative) Urine Ketones (Negative) Urine Blood (Negative) Urine Nitrite (Negative) Urine Bilirubin (Negative) Urine Urobilinogen (<2.0) mg/dL Ur Leukocyte Esterase (Negative) Urine RBC (0-5) /hpf Urine WBC (0-5) /hpf Ur Squamous Epith Cells (0-4) /hpf Hyaline Casts (0-2) /lpf Urine Mucus (None) /hpf Stool Occult Blood Negative (Negative) 03/03/18 Range/Units 19:03 WBC (3.8-10.6) k/uL RBC (4.30-5.90) m/uL Hgb (13.0-17.5) gm/dL Hct (39.0-53.0) % MCV (80.0-100.0) fL MCH (25.0-35.0) pg MCHC (31.0-37.0) g/dL RDW (11.5-15.5) % Plt Count (150-450) k/uL Neutrophils % % Lymphocytes % % Monocytes % % Eosinophils % % Basophils % % Neutrophils # (1.3-7.7) k/uL Lymphocytes # (1.0-4.8) k/uL Monocytes # (0-1.0) k/uL Eosinophils # (0-0.7) k/uL Basophils # (0-0.2) k/uL Sodium (137-145) mmol/L Potassium (3.5-5.1) mmol/L Chloride (98-107) mmol/L Carbon Dioxide (22-30) mmol/L Anion Gap mmol/L BUN (9-20) mg/dL Creatinine (0.66-1.25) mg/dL Est GFR (CKD-EPI)AfAm (>60 ml/min/1.73 sqM) Est GFR (CKD-EPI)NonAf (>60 ml/min/1.73 sqM) Glucose (74-99) mg/dL Calcium (8.4-10.2) mg/dL Total Bilirubin (0.2-1.3) mg/dL AST (17-59) U/L ALT (21-72) U/L Alkaline Phosphatase (38-126) U/L Total Protein (6.3-8.2) g/dL Albumin (3.5-5.0) g/dL Amylase (30-110) U/L Lipase (23-300) U/L Urine Color Yellow Urine Appearance Clear (Clear) Urine pH 5.5 (5.0-8.0) Ur Specific [place] 1.016 (1.001-1.035) Urine Protein Trace H (Negative) Urine Glucose (UA) Negative (Negative) Urine Ketones Negative (Negative) Urine Blood Negative (Negative) Urine Nitrite Negative (Negative) Urine Bilirubin Negative (Negative) Urine Urobilinogen <2.0 (<2.0) mg/dL Ur Leukocyte Esterase Small H (Negative) Urine RBC 1 (0-5) /hpf Urine WBC 3 (0-5) /hpf Ur Squamous Epith Cells <1 (0-4) /hpf Hyaline Casts 6 H (0-2) /lpf Urine Mucus Rare H (None) /hpf Stool Occult Blood (Negative) Disposition Clinical Impression: Abdominal pain Disposition: HOME SELF-CARE Condition: Good Instructions: Abdominal Pain (ED) Additional Instructions: Please take antibiotic as directed. Take Bentyl as needed for abdominal pain. Please follow-up with primary care in 1-2 days. Follow up with GI in 1-2 days. Please return to the emergency department if you have any worsening symptoms. Prescriptions: Dicyclomine [Bentyl] 20 mg PO TID PRN #20 tablet PRN Reason: Pain Sulfamethox-Tmp 800-160Mg [Bactrim DS 800-160 mg] 1 tab PO Q12HR #20 tab Is patient prescribed a controlled substance at d/c from ED?: No Referrals: Reuben Nicholson MD [Primary Care Provider] - 1-2 days Piero Hall MD [STAFF PHYSICIAN] - 1-2 days Time of Disposition: 21:05
[2018-03-03] MEDS ORDERED: KETOROLAC 30 MG/ML 1 ML VIAL IVP STA (18:48)
[2018-03-03] MEDS ORDERED: SODIUM CHLORIDE 0.9% 1,000 ML IV STA (18:48)
[2018-03-03] MEDS ORDERED: MAG HYDROX/AL HYDROX/SIMETH 30 ML, HYOSCYAMINE ELIXIR 10 ML, CIMETIDINE HCL 300 MG, LID... PO STA ×4 (18:50)
[2018-03-03 19:25] LABS: Basophils # (A) 0.1 k/uL (0-0.2); Basophils % (A) 1 %; Eosinophils # (A) 0.3 k/uL (0-0.7); Eosinophils % (A) 3 %; HCT 39.7 % (39.0-53.0); HGB 13.2 gm/dL (13.0-17.5); Lymphocytes # (A) 2.8 k/uL (1.0-4.8); Lymphocytes % (A) 23 %; MCH 31.2 pg (25.0-35.0); MCHC 33.4 g/dL (31.0-37.0); MCV 93.6 fL (80.0-100.0); Monocytes # (A) 0.6 k/uL (0-1.0); Monocytes % (A) 5 %; Neutrophils # (A) 8.1 k/uL (1.3-7.7); Neutrophils % (A) 67 %; Platelet Count 416 k/uL (150-450); RBC 4.24 m/uL (4.30-5.90); RDW 14.1 % (11.5-15.5); WBC 12.2 k/uL (3.8-10.6)
[2018-03-03 19:33] LABS: Albumin 4.3 g/dL (3.5-5.0); Calcium 10.4 mg/dL (8.4-10.2); Potassium 4.9 mmol/L (3.5-5.1); Total Bilirubin 0.3 mg/dL (0.2-1.3); Total Protein 7.2 g/dL (6.3-8.2)
[2018-03-03 19:37] LABS: Appearance,Urine Clear (Clear); Bilirubin,Urine Negative (Negative); Blood,Urine Negative (Negative); Color,Urine Yellow; Glucose,Urine (UA) Negative (Negative); Hyaline Casts,Urine 6 /lpf (0-2); Ketones,Urine Negative (Negative); Leukocyte Esterase,Urine Small (Negative); Mucus,Urine Rare /hpf; Nitrite,Urine Negative (Negative); PH, Urine 5.5 (5.0-8.0); Protein,Urine Trace (Negative); RBC,Urine 1 /hpf (0-5); Specific Gravity,Urine 1.016 (1.001-1.035); Squamous Epithelial Cell,Urine <1 /hpf (0-4); Urobilinogen,Urine <2.0 mg/dL (<2.0); WBC,Urine 3 /hpf (0-5)
--- NOTE | 2018-03-03 20:18 | CT ---
EXAMINATION TYPE: CT abdomen pelvis w con DATE OF EXAM: 03/03/2018 COMPARISON: 06/15/2016 HISTORY: Generalized abdominal pain and distension x 1 month with stool and urine incontinence. CT DLP: 1216.5 mGycm Automated exposure control for dose reduction was used. TECHNIQUE: Helical acquisition of images was performed from the lung bases through the pelvis. CONTRAST: Performed without Oral Contrast and with IV Contrast, patient injected with 100 mL of Isovue 300. FINDINGS: Lung bases are clear. There is no pleural effusion. Heart size is normal. There is some fatty infiltr ation of the liver. Spleen appears normal. There is no pancreatic mass. Gallbladder appears normal. B ile ducts are not dilated. There is no adrenal mass. Kidneys show satisfactory contrast opacification . There is no hydronephrosis. There is 3 mm calculus in the upper pole right kidney. Abdominal aorta is atheromatous. Ureters are not dilated. Bladder distends smoothly. There is metal artifact from rig ht hip prosthesis. There is no inguinal hernia. There is prostatic calcification. There is no free fl uid in the pelvis. I see no intestinal wall thickening. There are no dilated loops. Appendix appears normal. There is no mesenteric edema or adenopathy. Lumbar spine is intact. I see no bony destructive process. There is significant osteoarthritis in the left hip joint. IMPRESSION: NONOBSTRUCTING RIGHT RENAL CALCULUS APPEARS NEW COMPARED TO OLD EXAM. NORMAL APPENDIX. ATHEROMATOUS A RAMON. SIGNIFICANT OSTEOARTHRITIS IN THE LEFT HIP JOINT. FATTY INFILTRATION OF THE LIVER.
[2018-03-03] MEDS ORDERED: SULFAMETH-TMP DS STARTER PACK 2 TAB BTL PO STA (21:14)
[2018-03-03 21:26] VITALS: BP 142/92; PULSE 87; RESP 16
[2018-03-05 16:04] LABS: C. trachomatis,PCR Negative (Neg,Equiv); Chlamydia trachomatis Source Urine
[2018-03-05 16:05] LABS: N. gonorrhoeae,PCR Negative (Neg,Equiv); Neisseria Source Urine
== END 2018-03-03 21:26 | disposition home or self-care (01) ==
LOC: EC 18:01
DX: N20.0 Calculus of kidney (principal); M19.90 Unspecified osteoarthritis, unspecified site; F17.200 Nicotine dependence, unspecified, uncomplicated; Z87.442 Personal history of urinary calculi; Z79.899 Other long term (current) drug therapy; Z88.0 Allergy status to penicillin; Z88.8 Allergy status to other drugs, medicaments and biological substances; Z91.048 Other nonmedicinal substance allergy status; Z96.641 Presence of right artificial hip joint; Z85.9 Personal history of malignant neoplasm, unspecified
CPT/HCPCS: 36415; 80053; 82150; 83690; 85025; 82272; 81001; 87491; 87591; 87086; 74177; 99284; 96374; J1885; Q9967

== ENCOUNTER 2018-03-25 04:43 | Emergency (ER) | payer MEDICARE ==
[2018-03-25 05:25] LABS: Appearance,Urine Clear (Clear); Bilirubin,Urine Negative (Negative); Blood,Urine Negative (Negative); Color,Urine Light Yellow; Glucose,Urine (UA) Negative (Negative); Ketones,Urine Negative (Negative); Leukocyte Esterase,Urine Trace (Negative); Mucus,Urine Rare /hpf; Nitrite,Urine Negative (Negative); Protein,Urine Negative (Negative); RBC,Urine 1 /hpf (0-5); Specific Gravity,Urine 1.013 (1.001-1.035); Urobilinogen,Urine <2.0 mg/dL (<2.0); WBC,Urine 1 /hpf (0-5)
[2018-03-25] MEDS ORDERED: KETOROLAC 30 MG/ML 1 ML VIAL IVP STA (05:36)
--- NOTE | 2018-03-25 06:00 | ED ---
Abdominal Pain HPI - General Chief Complaint: Abdominal Pain Stated Complaint: Flank Pain Time Seen by Provider: 03/25/18 04:54 Source: patient Mode of arrival: ambulatory Limitations: no limitations - History of Present Illness MD Complaint: abdominal pain -: week(s) Location: L flank Radiation: other (Towards left testicle) Severity: moderate Quality: aching Consistency: constant Improves With: nothing Worsens With: nothing Associated Symptoms: denies other symptoms - Related Data Home Medications Medication Instructions Recorded Confirmed Dextroamphetamine/Amphetamine 20 mg PO QAM 05/22/16 10/31/17 [Adderall] Sertraline HCl [Zoloft] 25 mg PO DAILY 09/25/16 10/31/17 Topiramate [Topamax] 100 mg PO BID 10/24/17 10/31/17 Multivitamin,Therapeutic [Thera] 1 tab PO DAILY 10/30/17 11/01/17 Naproxen [Naprosyn] 500 mg PO Q12H PRN 10/31/17 11/01/17 Previous Rx's Medication Instructions Recorded Dicyclomine [Bentyl] 20 mg PO TID PRN #20 tablet 03/03/18 Sulfamethox-Tmp 800-160Mg [Bactrim 1 tab PO Q12HR #20 tab 03/03/18 DS 800-160 mg] Hydrocodone/Acetaminophen [[place] 1 each PO Q6HR PRN #15 tab 03/25/18 5-325] predniSONE 60 mg PO DAILY #30 tab 03/25/18 Allergies Allergy/AdvReac Type Severity Reaction Status Date / Time duloxetine [From Cymbalta] Allergy Severe throat Verified 03/25/18 04:50 swelling, could not swallow prochlorperazine Allergy Severe stroke Verified 03/25/18 04:50 [From Compazine] acyclovir Allergy Swelling Verified 03/25/18 04:50 Penicillins Allergy Swelling Verified 03/25/18 04:50 poison dylon extract Allergy Unknown Verified 03/25/18 04:50 poison oak extract Allergy Unknown Verified 03/25/18 04:50 poison sumac extract Allergy Unknown Verified 03/25/18 04:50 pregabalin [From Lyrica] AdvReac can't Verified 03/25/18 04:50 walk, muscle and joint pain Review of Systems ROS Statement: Those systems with pertinent positive or pertinent negative responses have been documented in the HPI. ROS Other: All systems not noted in ROS Statement are negative. Constitutional: Denies: fever, chills Respiratory: Denies: cough, dyspnea Cardiovascular: Denies: chest pain, palpitations Gastrointestinal: Reports: abdominal pain. Denies: nausea, vomiting Genitourinary: Reports: testicular pain. 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), varicose veins, hx kidney stones, "spasmotic torticollis dystonia", recent cellulitis legs(tx with antibiotics) History of Any Multi-Drug Resistant Organisms: None Reported Past Surgical History: Joint Replacement, Orthopedic Surgery Additional Past Surgical History / Comment(s): cervical fusion, right hip replacement, septoplasty, arthroscopy rt knee Past Anesthesia/Blood Transfusion Reactions: No Reported Reaction Additional Past Anesthesia/Blood Transfusion Reaction / Comment(s): states no diff intubation Past Psychological History: No Psychological Hx Reported Smoking Status: Current every day smoker Past Alcohol Use History: None Reported Past Drug Use History: None Reported - Past Family History Mother Family Medical History: Cancer, Deep Vein Thrombosis (DVT) General Exam Limitations: no limitations General appearance: alert, in no apparent distress Head exam: Present: atraumatic, normocephalic Eye exam: Present: normal appearance. Absent: scleral icterus, conjunctival injection Respiratory exam: Present: normal lung sounds bilaterally. Absent: respiratory distress, wheezes, rales, rhonchi, stridor Cardiovascular Exam: Present: regular rate, normal rhythm, normal heart sounds. Absent: systolic murmur, diastolic murmur, rubs, gallop GI/Abdominal exam: Present: soft. Absent: distended, tenderness, guarding, rebound, rigid, mass exam: Present: normal inspection, vertical testicular lie, circumcision, other (Left testicle with minimal epididymal tenderness). Absent: testicular tenderness, urethral discharge, scrotal swelling Extremities exam: Present: normal inspection, normal capillary refill Back exam: Present: normal inspection. Absent: CVA tenderness (R), CVA tenderness (L) Neurological exam: Present: alert Skin exam: Present: warm, dry, intact, normal color. Absent: rash Course Vital Signs 03/25/18 03/25/18 04:44 07:02 Temperature 97.4 F L Pulse Rate 94 80 Respiratory 28 H 19 Rate Blood Pressure 153/84 151/82 O2 Sat by Pulse 100 Oximetry Medical Decision Making - Medical Decision Making Shouldn't is 62-year-old man presenting with flank pain of further history does reveal also some radiation to left leg and after limiting other possibilities it seems most likely to be sciatic pain. He has had good relief with medication here and will be provided a short course of pain medication and steroids and have close follow-up. Did discuss risks and benefits of opioid use and the appropriate consent form signed. - Lab Data Result diagrams: 03/25/18 05:06 03/25/18 05:06 Lab Results 03/25/18 03/25/18 03/25/18 Range/Units 05:00 05:06 05:06 WBC 7.4 (3.8-10.6) k/uL RBC 3.85 L (4.30-5.90) m/uL Hgb 12.2 L (13.0-17.5) gm/dL Hct 36.4 L (39.0-53.0) % MCV 94.5 (80.0-100.0) fL MCH 31.8 (25.0-35.0) pg MCHC 33.6 (31.0-37.0) g/dL RDW 13.9 (11.5-15.5) % Plt Count 319 (150-450) k/uL Neutrophils % 51 % Lymphocytes % 34 % Monocytes % 6 % Eosinophils % 5 % Basophils % 1 % Neutrophils # 3.7 (1.3-7.7) k/uL Lymphocytes # 2.6 (1.0-4.8) k/uL Monocytes # 0.5 (0-1.0) k/uL Eosinophils # 0.4 (0-0.7) k/uL Basophils # 0.1 (0-0.2) k/uL Sodium 142 (137-145) mmol/L Potassium 4.5 (3.5-5.1) mmol/L Chloride 114 H (98-107) mmol/L Carbon Dioxide 20 L (22-30) mmol/L Anion Gap 8 mmol/L BUN 26 H (9-20) mg/dL Creatinine 1.62 H (0.66-1.25) mg/dL Est GFR (CKD-EPI)AfAm 51 (>60 ml/min/1.73 sqM) Est GFR (CKD-EPI)NonAf 45 (>60 ml/min/1.73 sqM) Glucose 94 (74-99) mg/dL Calcium 9.7 (8.4-10.2) mg/dL Total Bilirubin 0.5 (0.2-1.3) mg/dL AST 28 (17-59) U/L ALT 31 (21-72) U/L Alkaline Phosphatase 91 (38-126) U/L Total Protein 7.1 (6.3-8.2) g/dL Albumin 4.2 (3.5-5.0) g/dL Amylase 50 (30-110) U/L Lipase 209 (23-300) U/L Urine Color Light Yellow Urine Appearance Clear (Clear) Urine pH 6.0 (5.0-8.0) Ur Specific [place] 1.013 (1.001-1.035) Urine Protein Negative (Negative) Urine Glucose (UA) Negative (Negative) Urine Ketones Negative (Negative) Urine Blood Negative (Negative) Urine Nitrite Negative (Negative) Urine Bilirubin Negative (Negative) Urine Urobilinogen <2.0 (<2.0) mg/dL Ur Leukocyte Esterase Trace H (Negative) Urine RBC 1 (0-5) /hpf Urine WBC 1 (0-5) /hpf Urine Mucus Rare H (None) /hpf Disposition Clinical Impression: Sciatic pain Disposition: HOME SELF-CARE Condition: Good Instructions: Lumbar Radiculopathy (ED) Prescriptions: Hydrocodone/Acetaminophen [[place] 5-325] 1 each PO Q6HR PRN #15 tab PRN Reason: Pain predniSONE 60 mg PO DAILY #30 tab Is patient prescribed a controlled substance at d/c from ED?: Yes When asked, does pt state using other controlled substances?: No If prescribed controlled substance>3 days was MAPS reviewed?: Yes If opioid is for acute pain is fill amount 7 days or less?: No If Rx opioid, was Start Talking consent form obtained?: Yes Referrals: Reuben Nicholson MD [Primary Care Provider] - 1-2 days Ubaldo Caro DO [Doctor of Osteopathic Medicine] - 1-2 days Rm Hamm MD [STAFF PHYSICIAN] - 1-2 days
[2018-03-25] MEDS ORDERED: HYDROcodone/APAP 5-325MG 1 EACH TAB PO STA (06:13)
[2018-03-25 06:14] LABS: Albumin 4.2 g/dL (3.5-5.0); Calcium 9.7 mg/dL (8.4-10.2); Potassium 4.5 mmol/L (3.5-5.1); Total Bilirubin 0.5 mg/dL (0.2-1.3); Total Protein 7.1 g/dL (6.3-8.2)
[2018-03-25 06:33] LABS: Basophils # (A) 0.1 k/uL (0-0.2); Basophils % (A) 1 %; Eosinophils # (A) 0.4 k/uL (0-0.7); Eosinophils % (A) 5 %; HCT 36.4 % (39.0-53.0); HGB 12.2 gm/dL (13.0-17.5); Lymphocytes # (A) 2.6 k/uL (1.0-4.8); Lymphocytes % (A) 34 %; MCH 31.8 pg (25.0-35.0); MCHC 33.6 g/dL (31.0-37.0); MCV 94.5 fL (80.0-100.0); Monocytes # (A) 0.5 k/uL (0-1.0); Monocytes % (A) 6 %; Neutrophils # (A) 3.7 k/uL (1.3-7.7); Neutrophils % (A) 51 %; Platelet Count 319 k/uL (150-450); RBC 3.85 m/uL (4.30-5.90); RDW 13.9 % (11.5-15.5); WBC 7.4 k/uL (3.8-10.6)
[2018-03-25] MEDS ORDERED: MORPHINE SULFATE 4 MG/ML SYRINGE IV STA (07:33)
--- NOTE | 2018-03-25 08:36 | CT ---
EXAMINATION TYPE: CT abdomen pelvis wo con DATE OF EXAM: 03/25/2018 HISTORY: Flank pain, left CT DLP: 760.1 mGycm. Automated Exposure Control for Dose Reduction was Utilized. TECHNIQUE: CT scan of the abdomen and pelvis is performed without oral or IV contrast. COMPARISON: CT abdomen and pelvis March 03, 2018 FINDINGS: Within the limitations of a non-contrast study, the following observations are made. LUNG BASES: No significant abnormality is appreciated. LIVER/GB: Liver is diffusely low dense consistent with fatty infiltration. PANCREAS: No significant abnormality is seen. SPLEEN: No significant abnormality is seen. ADRENALS: No significant abnormality is seen. KIDNEYS: There are 4 calculi redemonstrated scattered throughout the right kidney unchanged in size a nd appearance measuring up to 4 mm in size lower pole coronal image 63. No left-sided renal calculi a re evident. No hydronephrosis or obstructing ureter calculi are seen. There are scattered pelvic phle boliths. No intraluminal calculus in the bladder is present. BOWEL: No significant abnormality is seen. GENITAL ORGANS: Prominent central calcifications are seen in normal size prostate gland. LYMPH NODES: No greater than 1cm abdominal or pelvic lymph nodes are appreciated. OSSEOUS STRUCTURES: Metallic hardware from right hip surgery causes streak artifact limiting evaluati on of pelvic structures. There is advanced degenerative change in the left hip joint with bone-on-bon e formation causing reformates and of the left femoral head, there is extensive subchondral cystic ch mohini and osteophyte formation redemonstrated. OTHER: Fairly severe calcified plaque of the infrarenal abdominal aorta extends into pelvic branch ve ssels. Slight focal ectasia measuring up to 2.3 cm transversely axial image 45 is redemonstrated. IMPRESSION: Stable nonobstructing right-sided renal calculi. No new or acute finding identified to ac count for patient's symptoms from recent CT.
[2018-03-25 09:40] VITALS: BP 158/85; PULSE 71; RESP 16; TEMP 97.5
== END 2018-03-25 09:46 | disposition home or self-care (01) ==
LOC: EC 04:43
DX: M54.32 Sciatica, left side (principal); M19.90 Unspecified osteoarthritis, unspecified site; F17.200 Nicotine dependence, unspecified, uncomplicated; Z88.0 Allergy status to penicillin; Z88.8 Allergy status to other drugs, medicaments and biological substances; Z91.048 Other nonmedicinal substance allergy status; Z79.899 Other long term (current) drug therapy; Z98.890 Other specified postprocedural states; Z96.641 Presence of right artificial hip joint; Z98.1 Arthrodesis status
CPT/HCPCS: 36415; 80053; 82150; 83690; 85025; 81001; 74176; 99284; 96374; 96375; J2270; J1885

== ENCOUNTER 2018-10-28 18:13 | Emergency (ER) | payer MEDICARE, OTHER ==
[2018-10-28 18:42] VITALS: RESP 18
[2018-10-28 20:11] LABS: Appearance,Urine Clear (Clear); Bilirubin,Urine Negative (Negative); Blood,Urine Negative (Negative); Color,Urine Yellow; Glucose,Urine (UA) Negative (Negative); Hyaline Casts,Urine 1 /lpf (0-2); Ketones,Urine Negative (Negative); Leukocyte Esterase,Urine Small (Negative); Mucus,Urine Rare /hpf; Nitrite,Urine Negative (Negative); PH, Urine 5.5 (5.0-8.0); Protein,Urine Negative (Negative); RBC,Urine 2 /hpf (0-5); Specific Gravity,Urine 1.011 (1.001-1.035); Urobilinogen,Urine <2.0 mg/dL (<2.0)
[2018-10-28 20:32] LABS: Basophils # (A) 0.1 k/uL (0-0.2); Basophils % (A) 1 %; Eosinophils # (A) 0.3 k/uL (0-0.7); Eosinophils % (A) 4 %; HCT 34.5 % (39.0-53.0); HGB 11.4 gm/dL (13.0-17.5); Lymphocytes # (A) 2.5 k/uL (1.0-4.8); Lymphocytes % (A) 33 %; MCH 31.8 pg (25.0-35.0); MCHC 33.2 g/dL (31.0-37.0); Mean Platelet Volume 7.2; Monocytes # (A) 0.4 k/uL (0-1.0); Monocytes % (A) 6 %; Neutrophils # (A) 4.1 k/uL (1.3-7.7); Neutrophils % (A) 53 %; Platelet Count 339 k/uL (150-450); RDW 15.2 % (11.5-15.5); WBC 7.7 k/uL (3.8-10.6)
[2018-10-28 20:35] LABS: Calcium 9.4 mg/dL (8.4-10.2); Potassium 3.7 mmol/L (3.5-5.1)
--- NOTE | 2018-10-28 20:57 | ED ---
General Adult HPI - General Chief complaint: Recheck/Abnormal Lab/Rx Stated complaint: lower abdominal pain/Male Time Seen by Provider: 10/28/18 19:06 Source: patient Mode of arrival: ambulatory Limitations: no limitations - History of Present Illness Initial comments: 63-year-old male presenting with penile and testicular pain. Patient states that today when he was leaving work he had intense burning on the head of his penis. He states for last 3 days is also had bilateral scrotal pain as well. He admits to some urinary hesitancy but denies any penile discharge. States he is not sexually active, denies any concern for STIs. He admits to decreased appetite but denies any abdominal pain, nausea, vomiting, diarrhea. Patient states that he is also concerned because his porch was recently sprayed for bees and he inhaled a large amount of thick, call accidentally. This happened on Sunday and he was having intense coughing with. Oral paresthesias. He states since then that has resolved but is concerned about his decreased appetite. 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 He denies any chest pain or current shortness of breath. - Related Data Home Medications Medication Instructions Recorded Confirmed Dextroamphetamine/Amphetamine 20 mg PO DAILY 05/22/16 10/28/18 [Adderall] Sertraline HCl [Zoloft] 25 mg PO DAILY 09/25/16 10/28/18 Topiramate [Topamax] 100 mg PO BID 10/24/17 10/28/18 Losartan Potassium 100 mg PO DAILY 10/28/18 10/28/18 Naproxen Sodium [Aleve] 440 mg PO BID 10/28/18 10/28/18 amLODIPine [Norvasc] 5 mg PO DAILY 10/28/18 10/28/18 Allergies Allergy/AdvReac Type Severity Reaction Status Date / Time duloxetine [From Cymbalta] Allergy Severe throat Verified 10/28/18 19:34 swelling, could not swallow prochlorperazine Allergy Severe stroke Verified 10/28/18 19:34 [From Compazine] acyclovir Allergy Swelling Verified 10/28/18 19:34 Penicillins Allergy Swelling Verified 10/28/18 19:34 poison dylon extract Allergy Unknown Verified 10/28/18 19:34 poison oak extract Allergy Unknown Verified 10/28/18 19:34 poison sumac extract Allergy Unknown Verified 10/28/18 19:34 pregabalin [From Lyrica] AdvReac can't Verified 10/28/18 19:34 walk, muscle and joint pain Review of Systems ROS Statement: Those systems with pertinent positive or pertinent negative responses have been documented in the HPI. Review of Systems Constitutional: Denies fever, chills Eyes: Denies change in vision, Denies pain Ears, nose, mouth, throat: Denies headaches, Denies sore throat Cardiovascular: Denies chest pain. Denies palpitations Respiratory: Denies shortness of breath, Denies cough Gastrointestinal: Denies abdominal pain. Denies nausea, vomiting, diarrhea. Genitourinary: Denies hematuria, positive penile and scrotal pain Musculoskeletal: Denies pain, Denies swelling Integumentary: Denies rash Neurological: Denies headache, focal weakness, focal numbness Psychiatric: Denies anxiety, Denies depression Hematologic/Lymphatic: Denies easy bleeding or bruising ROS Other: All systems not noted in ROS Statement are negative. 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), varicose veins, hx kidney stones, "spasmotic torticollis dystonia", recent cellulitis legs(tx with an tibiotics) History of Any Multi-Drug Resistant Organisms: None Reported Past Surgical History: Joint Replacement, Orthopedic Surgery Additional Past Surgical History / Comment(s): cervical fusion, right hip replacement, septoplasty, arthroscopy rt knee Past Anesthesia/Blood Transfusion Reactions: No Reported Reaction Additional Past Anesthesia/Blood Transfusion Reaction / Comment(s): states no diff intubation Past Psychological History: No Psychological Hx Reported Smoking Status: Current every day smoker Past Alcohol Use History: None Reported Past Drug Use History: None Reported - Past Family History Mother Family Medical History: Cancer, Deep Vein Thrombosis (DVT) General Exam - General Exam Comments Initial Comments: General: Awake, alert, No acute Distress HENT: Normocephalic. Atraumatic Eyes: PERRL. EOMI. No scleral icterus. No injected conjunctiva Neck: Full ROM Chest/Lungs: Clear to auscultation bilaterally. No wheezing, rhonchi, or rales Cardiac: Regular rate, rhythm. No murmurs or rubs Abdomen/GI: Soft, nontender, nondistended. No rebound, guarding, or rigidity. : Circumcised male. No penile erythema, swelling, or lesions. No testicular swelling, tenderness, hernia, or masses present. Musculoskeletal: Full ROM Skin: Warm, dry, intact Neurologic: A/Ox3, no weakness, no sensory deficit, no abnormal gait, no sustainable design coordinator rdination deficit Limitations: no limitations Course Vital Signs 10/28/18 10/28/18 18:29 21:45 Temperature 98 F 98.1 F Pulse Rate 97 63 Respiratory 18 18 Rate Blood Pressure 154/108 138/82 O2 Sat by Pulse 97 100 Oximetry Medical Decision Making - Medical Decision Making 63-year-old male presenting with penile burning, scrotal pain, and exposure to be spray. Initial exam the patient is awake, alert, no distress. VSS. Patient's UA was negative for infection. His ultrasound showed a small right hydrocele. He was in no respiratory distress here in his laboratory workup was unremarkable. At this time the patient is stable for outpatient follow-up with a urologist. No further emergent workup indicated. The patient was given return to ED instructions. They were instructed to follow up with their primary care provider. Stable for discharge at this time. - Lab Data Result diagrams: 10/28/18 20:18 10/28/18 20:18 Lab Results 10/28/18 10/28/18 10/28/18 Range/Units 19:41 20:18 20:18 WBC 7.7 (3.8-10.6) k/uL RBC 3.60 L (4.30-5.90) m/uL Hgb 11.4 L (13.0-17.5) gm/dL Hct 34.5 L (39.0-53.0) % MCV 96.0 (80.0-100.0) fL MCH 31.8 (25.0-35.0) pg MCHC 33.2 (31.0-37.0) g/dL RDW 15.2 (11.5-15.5) % Plt Count 339 (150-450) k/uL Neutrophils % 53 % Lymphocytes % 33 % Monocytes % 6 % Eosinophils % 4 % Basophils % 1 % Neutrophils # 4.1 (1.3-7.7) k/uL Lymphocytes # 2.5 (1.0-4.8) k/uL Monocytes # 0.4 (0-1.0) k/uL Eosinophils # 0.3 (0-0.7) k/uL Basophils # 0.1 (0-0.2) k/uL Sodium 139 (137-145) mmol/L Potassium 3.7 (3.5-5.1) mmol/L Chloride 111 H (98-107) mmol/L Carbon Dioxide 21 L (22-30) mmol/L Anion Gap 7 mmol/L BUN 19 (9-20) mg/dL Creatinine 1.34 H (0.66-1.25) mg/dL Est GFR (CKD-EPI)AfAm 65 (>60 ml/min/1.73 sqM) Est GFR (CKD-EPI)NonAf 56 (>60 ml/min/1.73 sqM) Glucose 89 (74-99) mg/dL Calcium 9.4 (8.4-10.2) mg/dL Urine Color Yellow Urine Appearance Clear (Clear) Urine pH 5.5 (5.0-8.0) Ur Specific [place] 1.011 (1.001-1.035) Urine Protein Negative (Negative) Urine Glucose (UA) Negative (Negative) Urine Ketones Negative (Negative) Urine Blood Negative (Negative) Urine Nitrite Negative (Negative) Urine Bilirubin Negative (Negative) Urine Urobilinogen <2.0 (<2.0) mg/dL Ur Leukocyte Esterase Small H (Negative) Urine RBC 2 (0-5) /hpf Urine WBC 3 (0-5) /hpf Hyaline Casts 1 (0-2) /lpf Urine Mucus Rare H (None) /hpf Disposition Clinical Impression: Right hydrocele, Penile pain Disposition: HOME SELF-CARE Condition: Good Instructions (If sedation given, give patient instructions): Hydrocele (ED), Testicle Pain (ED) Additional Instructions: Call your urologist for follow up Is patient prescribed a controlled substance at d/c from ED?: No Referrals: Reuben Nicholson MD [Primary Care Provider] - 1-2 days
--- NOTE | 2018-10-28 21:12 | US ---
EXAMINATION TYPE: US scrotum with doppler. Grayscale and color Doppler Duplex imaging performed of lucie patel scrotum. DATE OF EXAM: 10/28/2018 COMPARISON: CT 2018 CLINICAL HISTORY: Pain. Pain EXAM MEASUREMENTS: TESTICLES: Right Testicle: 4.0 x 2.5 x 2.6 cm Left Testicle: 4.1 x 2.6 x 3.0 cm EPIDIDYMIS HEAD: Right Epididymis: 1.4 x 1.0 x 0.6 cm Left Epididymis: 1.3 x 1.3 x 0.9 cm Doppler performed to assess for testicular vascularity; good bilateral color flow and waveforms are s een. There is no evidence of testicular torsion. Presence of hydroceles: Anechoic area seen superior/medial to right testicle measurin.9 x 0.9 x 1.0 cm. Presence of varicoceles: not seen Anechoic area seen superior/lateral to right testicle measurin.8 x 1.0 x 0.5 cm. Right and left epididymal head appear heterogeneous. Skin thickness measures 0.53 cm. IMPRESSION: Minimal fluid adjacent to the right testicle is probably a small hydrocele. No testicular torsion or mass.
[2018-10-28 21:47] VITALS: BP 138/82; PULSE 63; TEMP 98.1
== END 2018-10-28 21:47 | disposition home or self-care (01) ==
LOC: EC 18:13
DX: N43.3 Hydrocele, unspecified (principal); N48.89 Other specified disorders of penis; M19.90 Unspecified osteoarthritis, unspecified site; F17.200 Nicotine dependence, unspecified, uncomplicated; G47.30 Sleep apnea, unspecified; Z99.89 Dependence on other enabling machines and devices; Z96.641 Presence of right artificial hip joint; Z79.1 Long term (current) use of non-steroidal anti-inflammatories (NSAID); Z79.899 Other long term (current) drug therapy; Z88.8 Allergy status to other drugs, medicaments and biological substances; Z88.0 Allergy status to penicillin; Z91.048 Other nonmedicinal substance allergy status
CPT/HCPCS: 36415; 76870; 80048; 81001; 85025; 93975; 99284

== ENCOUNTER → 2019-11-25 | Outpatient (CLI) | payer MEDICARE ==
[2019-11-25 14:54] LABS: HCT 39.9 % (39.0-53.0); HGB 13.2 gm/dL (13.0-17.5); MCH 32.1 pg (25.0-35.0); MCHC 33.2 g/dL (31.0-37.0); MCV 96.7 fL (80.0-100.0); Mean Platelet Volume 7.4; Platelet Count 319 k/uL (150-450); RBC 4.12 m/uL (4.30-5.90); RDW 13.5 % (11.5-15.5); WBC 8.8 k/uL (3.8-10.6)
[2019-11-25 15:04] LABS: INR 0.9 (<1.2); Prothrombin Time 9.4 sec (9.0-12.0)
[2019-11-25 15:06] LABS: Potassium 4.7 mmol/L (3.5-5.1)
[2019-11-25 15:09] LABS: ALT 24 U/L (4-49); AST 28 U/L (17-59); African American GFR (CKD) >90 (>60 ml/min/1.73 sqM); Albumin 4.2 g/dL (3.5-5.0); Alkaline Phosphatase 82 U/L (38-126); Anion Gap 4 mmol/L; Blood Urea Nitrogen 16 mg/dL (9-20); Calcium 9.7 mg/dL (8.4-10.2); Carbon Dioxide 25 mmol/L (22-30); Chloride 107 mmol/L (98-107); Glucose 110 mg/dL (74-99); Non-African American GFR(CKD) 85 (>60 ml/min/1.73 sqM); Sodium 136 mmol/L (137-145); Total Bilirubin 0.6 mg/dL (0.2-1.3); Total Protein 6.7 g/dL (6.3-8.2)
[2019-11-25 15:15] LABS: Partial Thromboplastin Time 21.8 sec (22.0-30.0)
[2019-11-25 15:16] LABS: Appearance,Urine Clear (Clear); Bilirubin,Urine Negative (Negative); Blood,Urine Negative (Negative); Color,Urine Yellow; Glucose,Urine (UA) Negative (Negative); Hyaline Casts,Urine 1 /lpf (0-2); Ketones,Urine Negative (Negative); Leukocyte Esterase,Urine Small (Negative); Mucus,Urine Occasional /hpf; Nitrite,Urine Negative (Negative); Protein,Urine Negative (Negative); RBC,Urine 1 /hpf (0-5); Specific Gravity,Urine 1.013 (1.001-1.035); Urobilinogen,Urine <2.0 mg/dL (<2.0); WBC,Urine 3 /hpf (0-5)
== END | disposition home or self-care (01) ==
LOC: LABPAT 13:41
PROVIDERS: ATTEND Orthopaedic Surgery
DX: Z01.818 Encounter for other preprocedural examination (principal); Z01.812 Encounter for preprocedural laboratory examination
CPT/HCPCS: 36415; 80053; 81001; 85027; 85610; 85730; 86850; 86900; 86901; 87070

== ENCOUNTER 2019-12-01 06:16 | Day surgery (SDC) | payer MEDICARE ==
[2019-11-24 15:51] VITALS: BMI 27.8
[~2019-12-01 06:16] MED LIST changes: +ACETAMINOPHEN TAB 500 MG TAB PO ONE; +DEXAMETHASONE SOD PHOSPHATE 10 MG/ML 1 ML VIAL IV ONE; +HYDROmorphone 0.5 MG/0.5 ML SYRINGE IVP PRN; -LACTATED RINGERS 1,000 ML IV SCH; -LIDOCAINE 1% 20 ML VIAL (10MG/ML) FOR IV START INTRADERMA PRN; +MELOXICAM 7.5 MG TAB PO ONE; +ONDANSETRON 4 MG/2 ML VIAL IVP ONE; +ROPIVACAINE 246.25 MG, EPINEPHrine 0.5 MG, KETOROLAC 30 MG, cloNIDine HCL/PF 80 MCG, WA... MISCELLANE ONE; +TRANEXAMIC ACID 1,000 MG in SODIUM CHLORIDE 0.9% 100 ML IVPB ONE
[2019-12-01] MEDS ORDERED: ONDANSETRON 4 MG/2 ML VIAL ONE (06:59)
[2019-12-01] MEDS ORDERED: ACETAMINOPHEN TAB 500 MG TAB ONE (06:59)
[2019-12-01] MEDS: LACTATED RINGERS 1,000 ML IV SCH (07:20)
[2019-12-01 07:28] LABS: Glucose,Whole Blood 124 mg/dL (75-99)
[2019-12-01] MEDS ORDERED: TRANEXAMIC ACID 1,000 MG/10 ML VIAL ONE (07:42)
[2019-12-01] MEDS ORDERED: SODIUM CHLORIDE 0.9% 100 ML BAG ONE (07:42)
[2019-12-01] MEDS ORDERED: MIDAZOLAM 2 MG/2 ML VIAL ONE (07:42)
[2019-12-01] MEDS ORDERED: PROPOFOL 10 MG/ML 20 ML VIAL IV ONE (07:42)
[2019-12-01] MEDS ORDERED: fentaNYL (PF) 50 MCG/ML 2 ML AMP ONE (07:42)
[2019-12-01] MEDS ORDERED: TOBRA-DEXAMET 0.3-0.1% OPHTH OINT 3.5 GM TUBE ONE (07:42)
[2019-12-01] MEDS ORDERED: ceFAZolin 3,000 MG in SODIUM CHLORIDE 0.9% IRRIGATIO 3,000 ML IRRIGATION ONE (08:18)
[2019-12-01] MEDS ORDERED: LACTATED RINGERS 1,000 ML IV ONE (09:01)
--- NOTE | 2019-12-01 09:51 | P.OP ---
Date of Procedure: 12/01/19 Procedure(s) Performed: PREOPERATIVE DIAGNOSIS: Left hip severe osteoarthritis POSTOPERATIVE DIAGNOSIS: Left hip severe osteoarthritis OPERATION: Left hip total replacement arthroplasty (uncemented implantation with metal on polyethylene articulation). ANESTHESIA: Spinal ESTIMATED BLOOD LOSS: 150 ml. PARTY COORDINATOR: Elinor Egan PA-C (assistance with: patient positioning, retraction, exposure, hemostasis, leg positioning, implantation, irrigation, closure, dressing) COMPLICATIONS: None apparent. COMPONENTS IMPLANTED: Scottie Continuum acetabular cup with cluster holes; Continuum longevity 15 elevated liner, 32 mm id; Scottie VerSys Fiber Metal stem; VerSys 32 mm femoral head with +10.5 mm neck length extension INDICATIONS: Mr. Salcedo is a 64-year-old male with significant end-stage osteoarthritis involving the left hip and commensurate severe symptoms. He is already successfully undergone right hip replacement approximately 15 years ago. He presents to the operating room today for total hip replacement. I have discussed the steps of the operation as well as potential risks and complications as being inclusive of, but not limited to: Leading, infection, scarring, discomfort, or vessel and/or nerve damage, need for further surgery, loosening, dislocation, wear, osteolysis, limb length inequality, fracture, blood clot, pulmonary embolism, , persistent limp, and other risks. The patient is aware these risks and wishes to proceed with surgery and has signed a consent form. PROCEDURE: After appropriate consent was obtained, the patient was taken to the operating room and placed in supine position. Spinal anesthetic was administered and after confirmation of adequate anesthesia, the patient was placed into the lateral decubitus position with the left side up. Note was made of severe flexion contracture of 30 degrees and abduction limitation of 30 degrees. Care was taken to make sure that all pressure points were adequately padded and he was stabilized to the table with a Selden hip positioner. The left hip was prepped and draped in the usual aseptic fashion using a combination of ChloraPrep and alcohol. Ioban drape was used for the case and the patient received intravenous antibiotics prior to the incision. "Time out" was called, confirming patient identity, side, procedure, availability of implants and administration of antibiotics. The incision was created directly over the greater trochanter and carried slightly posteriorly for a posterior approach to the hip. The incision was then deepened down to subcutaneous tissue and fascia fransisco. Fascia fransisco was split in line with the incision and split proximally along the fibers of the gluteus ma ximus. The underlying fibers of the muscle were teased apart using finger dissection and bleeding vessels were picked up and coagulated. Retractor was then placed posteriorly consisting of a blunt Thompson. The short external rotators and capsule were exposed using good visualization of the attachment of the external rotators to the femur was established. The short external rotators and capsule were released using electrocautery from their femoral attachments. A hockey stick shaped incision was created in the capsule. Joint fluid was evacuated and the patient's hip was able to be dislocated fairly easily. The patient's femoral head was severely arthritic with eburnated bone present and a 360 degrees mcdonald of osteophytes. The femoral neck cut was created approximately 1 cm superior to the lesser trochanter using a reciprocating saw. The femoral head and neck fragment was removed and attention was then directed to the acetabulum. An anterior acetabular retractor was applied followed by posterior retraction of the capsule with a Meyerding retractor. This afforded good visualization into the acetabular cavity. Soft tissue was removed and residual cartilage within the acetabular vault was removed using a curette. Labrum was removed using a long-handled knife and supplemented with a rongeur as a lot of the labrum was calcified. Attention was then directed to reaming. The size 44 reamer was used first, followed by increasing increments until the final size reamer was used. Please see the implantation sheet for exact sizes used for the components. Once the final reamer had been utilized to expand the socket it was noted that there was a good supportive bone around the acetabular socket and no further reaming needed to be performed. The trial the same size as the last reamer used was then impacted into the acetabular vault and found to have good fit. The acetabular component, one size (2mm) greater than the trial was then called for. The cluster holes were placed posteriorly and the component was impacted in a position of approximately 40 degrees abduction and 20 degrees anteversion. This matched this patient's [place] anteversion and it was noted that the cup had exc ellent stability without need for additional screw fixation. Attention was then directed to the acetabular liner. The anteversion and abduction angle of the component was noted to be very good. A 15 elevated liner was used and locked into position. Osteophytes around the posterior and inferior aspect of the acetabulum were trimmed as necessary to prevent any impingement. Attention was then directed back to the proximal femur. Retractors were placed around the proximal femur and box osteotome was used followed by canal finder and trochanteric reamer. Cylindrical reaming was performed. Progressive broaching was then performed starting with a #10 broach and progressing final size, in a position of 15 degrees anteversion. [place] anteversion was within 5 degrees of stem position. The final size broach had excellent fit and fill of the patient's metaphysis and diaphysis. Trial reduction was then performed starting with size 32 mm femoral head and various neck combination of stability, limb length equality, and soft tissue tension. Trial components were then removed. The canal was lavaged and the final size femoral stem component was impacted into position. The implant fit very well and had excellent stability. The femoral head was then impacted onto the Diamond taper. Blood and debris were removed from the acetabular component and the hip was then reduced and checked for stability, limb length and soft tissue tension. These parameters found to be satisfactory, the wound was then thoroughly irrigated with normal saline. Final hemostasis was obtained using electrocautery and IV tranexamic acid, 1 g given at the time of prepping and draping, and another 1 g given at the time of closure. Local anesthetic solution consisting of ropivacaine with epinephrine, clonidine, and ketorolac was also used throughout the case targeting the capsule, fascia, and skin. Closure of the capsule was performed meticulously using #3 Vicryl suture. Four [id number] sutures were placed in the posterior capsule along with repair of the external rotators. The fascia fransisco was then repaired using combination of #3 Vicryl suture in interrupted fashion and Quill and running fashion. 2-0 Vicryl suture was used for the subcutaneous tissues and 3-0 Quill for the skin. Cyanoacrylate closure was then applied, followed by OptiFoam dressing. The patient tolerated the procedure well. There were no complications and the wound bed was dry and there was no need for drain placement. Sterile dressing was then applied and the patient was carefully removed from the operating room table, placed on the stretcher and was taken to the recovery room in stable condition. Sponge and needle counts were correct.
[2019-12-01] MEDS ORDERED: HYDROcodone/APAP 7.5-325MG 1 EACH TAB PO PRN (09:59)
[2019-12-01] MEDS ORDERED: diazePAM 5 MG TAB PO PRN (09:59)
[2019-12-01] MEDS ORDERED: NALOXONE 0.4 MG/ML 1 ML VIAL IV PRN (09:59)
[2019-12-01] MEDS ORDERED: ONDANSETRON 4 MG/2 ML VIAL IVP PRN (09:59)
[2019-12-01] MEDS ORDERED: MAGNESIUM HYDROXIDE 2,400 MG/10 ML CUP PO PRN (09:59)
[2019-12-01] MEDS ORDERED: HYDROmorphone 1 MG/ML 1 ML SYRINGE IVP PRN (09:59)
[2019-12-01] MEDS ORDERED: HYDROmorphone 0.5 MG/0.5 ML SYRINGE IVP PRN ×2 (09:59)
[2019-12-01] MEDS ORDERED: TEMAZEPAM 15 MG CAP PO PRN (09:59)
[2019-12-01] MEDS: CLINDAMYCIN 900 MG in DEXTROSE 5% IN WATER 50 ML IVPB SCH ×4 (16:09→23:02)
--- NOTE | 2019-12-01 16:12 | XR ---
EXAMINATION TYPE: XR Hip Limited LT DATE OF EXAM: 12/01/2019 COMPARISON: None HISTORY: Hip replacement TECHNIQUE: AP left hip FINDINGS: There is a left femoral prosthesis placement. No acute fractures are evident. IMPRESSION: 1. No acute fractures post left hip replacement.
[2019-12-01] MEDS: HYDROcodone/APAP 7.5-325MG 1 EACH TAB PO PRN (17:57)
[2019-12-01] MEDS: ASPIRIN 81 MG PO SCH (20:21)
[2019-12-01] MEDS ORDERED: SENNOSIDES-DOCUSATE SODIUM 1 EACH TAB PO SCH (21:00)
[2019-12-02] MEDS: HYDROcodone/APAP 7.5-325MG 1 EACH TAB PO PRN ×3 (00:55→12:14)
[2019-12-02] MEDS: LACTATED RINGERS 1,000 ML IV SCH (04:42)
[2019-12-02] MEDS: ASPIRIN 81 MG PO SCH (07:25)
[2019-12-02 07:42] VITALS: BP 151/72; PULSE 90; RESP 17; TEMP 98.3
--- NOTE | 2019-12-02 08:22 | P.CONS ---
History of Present Illness - Reason for Consult Consult date: 12/02/19 - Chief Complaint Medical management for left hip postop. - History of Present Illness This is a consultation note an 64-year-old male with known history of left hip pain. He has an underlying history of attention deficit disorder. Element of remote history of obsessive parasitosis is also noted. No significant fever or chills. He is doing well postoperatively and has good pain control. He is ablated appropriately also. We'll reconcile home medications as necessary. Review of Systems Constitutional: Denies chills, Denies fever Eyes: denies blurred vision, denies pain Ears, nose, mouth and throat: Denies headache, Denies sore throat Cardiovascular: Denies chest pain, Denies shortness of breath Respiratory: Denies cough Gastrointestinal: Denies abdominal pain, Denies diarrhea, Denies nausea, Denies vomiting Musculoskeletal: Denies myalgias Integumentary: Denies pruritus, Denies rash Neurological: Denies numbness, Denies weakness 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 History of Any Multi-Drug Resistant Organisms: None Reported Past Surgical History: Joint Replacement, Orthopedic Surgery Additional Past Surgical History / Comment(s): cervical fusion, right hip replacement, septoplasty, arthroscopy rt knee Past Anesthesia/Blood Transfusion Reactions: No Reported Reaction Additional Past Anesthesia/Blood Transfusion Reaction / Comm: states no diff intubation Past Psychological History: ADD/ADHD Smoking Status: Current every day smoker Past Alcohol Use History: None Reported Additional Past Alcohol Use History / Comment(s): smokes 1/2ppd Past Drug Use History: None Reported - Past Family History Mother Family Medical History: Cancer, Deep Vein Thrombosis (DVT) Medications and Allergies Home Medications Medication Instructions Recorded Confirmed Type Dextroamphetamine/Amphetamine 20 mg PO DAILY 05/22/16 11/24/19 History [Adderall] Naproxen Sodium [Aleve] 220 mg PO BID PRN 11/24/19 11/24/19 History Aspirin [Adult Low Dose Aspirin EC] 81 mg PO BID #1 tablet. 12/01/19 Rx Meloxicam [Mobic] 1 - 2 tab PO DAILY PRN #30 tab 12/01/19 Rx Sennosides-Docusate Sodium 1 tab PO BID #60 tablet 12/01/19 Rx [Senokot-S] Allergies Allergy/AdvReac Type Severity Reaction Status Date / Time duloxetine [From Cymbalta] Allergy Severe throat Verified 12/01/19 06:52 swelling, could not swallow prochlorperazine Allergy Severe "symptoms Verified 12/01/19 06:52 [From Compazine] similar to a stroke" acyclovir Allergy Swelling Verified 12/01/19 06:52 Penicillins Allergy Swelling Verified 12/01/19 06:52 poison dylon extract Allergy Unknown Verified 12/01/19 06:52 poison oak extract Allergy Unknown Verified 12/01/19 06:52 poison sumac extract Allergy Unknown Verified 12/01/19 06:52 pregabalin [From Lyrica] AdvReac can't Verified 12/01/19 06:52 walk, muscle and joint pain Physical Exam Vitals: Vital Signs Temp Pulse Pulse Resp BP Pulse Ox 12/02/19 07:19 98.3 F 90 17 151/72 96 12/02/19 00:49 98.9 F 106 H 15 119/75 95 12/01/19 19:35 97 F L 86 14 158/74 97 12/01/19 15:55 98.6 F 55 L 18 138/76 97 12/01/19 13:54 81 16 162/93 95 12/01/19 13:30 90 16 161/81 95 12/01/19 13:00 88 16 173/95 95 12/01/19 12:30 90 16 165/86 95 12/01/19 12:02 89 16 163/105 95 12/01/19 11:30 79 16 133/86 95 12/01/19 11:15 91 16 152/79 92 L 12/01/19 11:00 81 16 160/99 94 L 12/01/19 10:45 76 16 154/97 100 12/01/19 10:31 76 16 171/86 100 12/01/19 10:16 70 16 161/90 100 12/01/19 10:00 65 16 122/81 97 12/01/19 09:48 97.7 F 75 16 136/87 99 Intake and Output 12/01/19 12/02/19 12/02/19 22:59 06:59 14:59 Output Total 600 Balance -600 Output: Urine 600 Other: Voiding Method Toilet Toilet Urinal Urinal # Voids 1 Weight 98.293 kg - Constitutional General appearance: no acute distress - EENT Eyes: EOMI - Neck Neck: no lymphadenopathy - Respiratory Respiratory: bilateral: CTA - Cardiovascular Rhythm: regular Heart sounds: normal: S1, S2 Abnormal Heart Sounds: no S3 Gallop - Gastrointestinal General gastrointestinal: soft, no tenderness - Integumentary Integumentary: no cellulitis - Neurologic Neurologic: CNII-XII intact Assessment and Plan (1) Attention deficit disorder Current Visit: Yes Status: Acute Code(s): F98.8 - OTH BEHAV/EMOTN DISORD W ONSET USLY OCCUR IN CHLDHD AND ADOL SNOMED Code(s): 97986090 (2) Osteoarthritis of left hip Current Visit: Yes Status: Acute Code(s): M16.12 - UNILATERAL PRIMARY OSTEOARTHRITIS, LEFT HIP SNOMED Code(s): 429072413917215 (3) Status post total hip replacement, left Current Visit: Yes Status: Acute Code(s): Z96.642 - PRESENCE OF LEFT ARTIFICIAL HIP JOINT SNOMED Code(s): 303651435887 Plan: Reconcile medications. The patient is doing quite well postoperatively. I suspect hopeful discharge in the next 24 hours. See orders otherwise.
[2019-12-02] MEDS ORDERED: MELOXICAM 7.5 MG TAB PO SCH (09:00)
[2019-12-02 10:06] LABS: Basophils # (A) 0.1 k/uL (0-0.2); Basophils % (A) 0 %; Eosinophils # (A) 0.1 k/uL (0-0.7); Eosinophils % (A) 1 %; HCT 32.8 % (39.0-53.0); HGB 10.9 gm/dL (13.0-17.5); Lymphocytes # (A) 2.4 k/uL (1.0-4.8); Lymphocytes % (A) 18 %; MCH 32.3 pg (25.0-35.0); MCHC 33.1 g/dL (31.0-37.0); MCV 97.6 fL (80.0-100.0); Mean Platelet Volume 7.9; Monocytes # (A) 1.2 k/uL (0-1.0); Monocytes % (A) 9 %; Neutrophils # (A) 9.2 k/uL (1.3-7.7); Neutrophils % (A) 70 %; Platelet Count 267 k/uL (150-450); RBC 3.36 m/uL (4.30-5.90); RDW 13.5 % (11.5-15.5); WBC 13.2 k/uL (3.8-10.6)
--- NOTE | 2019-12-02 10:31 | P.DS ---
Providers Expected date of discharge: 12/02/19 Attending physician: Negrito Araya Consults: 12/01/19 09:59 Consult Physician Routine Consulting Provider: Reuben Nicholson Consult Reason/Comments: Medical management Do you want consulting provider notified?: Yes Primary care physician: Reuben Nicholson - Discharge Diagnosis(es) (1) Chronic pain Current Visit: Yes Status: Acute (2) Osteoarthritis of left hip Current Visit: Yes Status: Acute (3) Status post total hip replacement, left Current Visit: Yes Status: Acute Hospital Course: This is a 64-year-old male with known history of degenerative arthritis of the left hip. The patient presents for evaluation. After discussion and consideration patient elects to proceed with total hip arthroplasty. The patient is seen preoperatively by Dr. Nicholson and cleared for surgery. Patient is admitted to [facility] on 12/01/2019 for total hip arthroplasty. The procedures performed without complication or sequelae. The patient is doing well postoperatively. Labs and vital signs are stable on day of discharge. On day of discharge patient's hip incision is healing well. There is minimal erythema. There is no drainage noted at this time. There is minimal soft tissue swelling to the hip and thigh. Patient has full foot and ankle motion without difficulty or pain. Neurovascular status to the left lower extremity is intact. Patient is discharged to home in good condition. The patient currently takes oxycontin at home. We will defer pain management to his primary care physician. Please see med rec for accurate list of home medications. Plan - Discharge Summary Discharge Rx Participant: Yes New Discharge Prescriptions: New Aspirin [Adult Low Dose Aspirin EC] 81 mg PO BID #1 tablet. Meloxicam [Mobic] 1 - 2 tab PO DAILY PRN #30 tab PRN Reason: Pain Sennosides-Docusate Sodium [Senokot-S] 1 tab PO BID #60 tablet No Action Dextroamphetamine/Amphetamine [Adderall] 20 mg PO DAILY Naproxen Sodium [Aleve] 220 mg PO BID PRN PRN Reason: Pain Discharge Medication List Dextroamphetamine/Amphetamine [Adderall] 20 mg PO DAILY 05/22/16 [History] Naproxen Sodium [Aleve] 220 mg PO BID PRN 11/24/19 [History] Aspirin [Adult Low Dose Aspirin EC] 81 mg PO BID #1 tablet. 12/01/19 [Rx] Meloxicam [Mobic] 1 - 2 tab PO DAILY PRN #30 tab 12/01/19 [Rx] Sennosides-Docusate Sodium [Senokot-S] 1 tab PO BID #60 tablet 12/01/19 [Rx] Follow up Appointment(s)/Referral(s): [facility] [NON-STAFF] - (Please contact [facility] with any questions regarding your new walker. ) Reuben Nicholson MD [Primary Care Provider] - 1 Week [facility], [NON-STAFF] - ([facility] will contact you and set up for your first visit to be within 24 hours of discharge from the hospital. ) Negrito Araya MD [STAFF PHYSICIAN] - 12/15/19 9:45 am Patient Instructions/Handouts: Pain Management After Surgery (DC), Total Hip Replacement (DC) Activity/Diet/Wound Care/Special Instructions: May bear 50% wt LLE w walker. May shower. Discharge pain management per medical management. Discharge Disposition: HOME WITH HOME HEALTH SERVICES
== END 2019-12-02 13:52 | disposition home health service (06) ==
LOC: OR 06:16 → 4SSUR 13:48 → OR 12-02 13:52
PROVIDERS: ATTEND Orthopaedic Surgery
DX: M16.12 Unilateral primary osteoarthritis, left hip (principal); M21.70 Unequal limb length (acquired), unspecified site; N20.0 Calculus of kidney; I10 Essential (primary) hypertension; G24.3 Spasmodic torticollis; J45.909 Unspecified asthma, uncomplicated; F90.9 Attention-deficit hyperactivity disorder, unspecified type; I83.90 Asymptomatic varicose veins of unspecified lower extremity; F98.8 Other specified behavioral and emotional disorders with onset usually occurring in childhood and adolescence; F43.10 Post-traumatic stress disorder, unspecified; F22 Delusional disorders; F17.210 Nicotine dependence, cigarettes, uncomplicated; Z86.19 Personal history of other infectious and parasitic diseases; Z96.641 Presence of right artificial hip joint; Z96.651 Presence of right artificial knee joint; Z79.1 Long term (current) use of non-steroidal anti-inflammatories (NSAID); Z79.82 Long term (current) use of aspirin; Z79.899 Other long term (current) drug therapy; Z88.0 Allergy status to penicillin; Z88.8 Allergy status to other drugs, medicaments and biological substances; Z82.49 Family history of ischemic heart disease and other diseases of the circulatory system; Z80.42 Family history of malignant neoplasm of prostate; Z82.61 Family history of arthritis; Z82.5 Family history of asthma and other chronic lower respiratory diseases; Z98.1 Arthrodesis status
CPT/HCPCS: 97116; 97110; 97161; 97535; 97165; 85025; 88300; 73501; 27130; C1776; J0171; J1100; J0690 ×2; J2405; J1885; J2795; J0735; 86850; 86900; 86901

== ENCOUNTER 2020-05-10 17:41 | Inpatient (IN) | payer MEDICARE ==
[2020-05-10] MEDS ORDERED: NITROGLYCERIN SL TABS 0.4 MG TAB SUBLINGUAL STA (17:56)
[2020-05-10 18:00] LABS: Basophils # (A) 0.1 k/uL (0-0.2); Basophils % (A) 1 %; Eosinophils # (A) 0.2 k/uL (0-0.7); Eosinophils % (A) 2 %; HCT 37.6 % (39.0-53.0); HGB 12.9 gm/dL (13.0-17.5); Lymphocytes # (A) 2.5 k/uL (1.0-4.8); Lymphocytes % (A) 28 %; MCH 32.5 pg (25.0-35.0); MCHC 34.3 g/dL (31.0-37.0); MCV 94.5 fL (80.0-100.0); Mean Platelet Volume 7.2; Monocytes # (A) 0.5 k/uL (0-1.0); Monocytes % (A) 6 %; Neutrophils # (A) 5.2 k/uL (1.3-7.7); Neutrophils % (A) 58 %; Platelet Count 302 k/uL (150-450); RBC 3.98 m/uL (4.30-5.90); RDW 13.3 % (11.5-15.5); WBC 8.9 k/uL (3.8-10.6)
[2020-05-10 18:12] LABS: Albumin 3.8 g/dL (3.5-5.0); Calcium 9.7 mg/dL (8.4-10.2); Magnesium 1.7 mg/dL (1.6-2.3); Potassium 4.1 mmol/L (3.5-5.1); Total Bilirubin 0.4 mg/dL (0.2-1.3); Total Protein 6.3 g/dL (6.3-8.2)
[2020-05-10 18:20] LABS: INR 0.9 (<1.2); Partial Thromboplastin Time 21.3 sec (22.0-30.0); Prothrombin Time 9.6 sec (9.0-12.0)
[2020-05-10 18:23] LABS: D-Dimer 0.69 mg/L FEU (<0.60)
--- NOTE | 2020-05-10 18:31 | XR ---
EXAMINATION TYPE: XR chest 2V DATE OF EXAM: 05/10/2020 COMPARISON: 09/02/2014. HISTORY: Chest pain. TECHNIQUE: Frontal and lateral views of the chest are obtained. FINDINGS: There is no focal air space opacity, pleural effusion, or pneumothorax seen. The cardiac silhouette size is within normal limits. The osseous structures are intact. IMPRESSION: No acute cardiopulmonary process.
[2020-05-10] MEDS ORDERED: HEPARIN SODIUM,PORCINE 5,000 UNIT/ML 1 ML VIAL IV PRN (18:57)
[2020-05-10] MEDS ORDERED: HEPARIN SODIUM,PORCINE 5,000 UNIT/ML 1 ML VIAL IV ONE (18:57)
[2020-05-10] MEDS ORDERED: NITROGLYCERIN OINT 1 INCH/GM PACKET TOPICAL STA (18:58)
[2020-05-10] MEDS ORDERED: HEPARIN SOD,PORK IN 0.45% NACL 25,000 UNIT in 0.45% NACL 1 250ML.BAG IV SCH (19:00)
--- NOTE | 2020-05-10 19:20 | ED ---
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 It was 8/10 severity he did improve after nitroglycerin given by paramedics as well as aspirin that he took at home. He still has about 5/5 pain to both arms. He states about 5 days with similar pain without radiation to the right arm only to the left which lasted 2 or 3 hours. He went away by itself. He has no prior known history of heart or lung disease. No fevers chills nausea vomiting sweats or other symptoms. MD Complaint: chest pain - Related Data Home Medications Medication Instructions Recorded Confirmed Dextroamphetamine/Amphetamine 20 mg PO DAILY 05/22/16 05/10/20 [Adderall] Cholecalciferol [Vitamin D3 (25 50 mcg PO DAILY 05/10/20 05/10/20 Mcg = 1000 Iu)] Priyanka Apple Cider Vinegar Gummies 2 tab PO DAILY 05/10/20 05/10/20 Tamsulosin [Flomax] 0.4 mg PO PC-SUPPER 05/10/20 05/10/20 Zinc 50 mg PO DAILY 05/10/20 05/10/20 Allergies Allergy/AdvReac Type Severity Reaction Status Date / Time duloxetine [From Cymbalta] Allergy Severe throat Verified 05/10/20 18:43 swelling, could not swallow prochlorperazine Allergy Severe "symptoms Verified 05/10/20 18:43 [From Compazine] similar to a stroke" acyclovir Allergy Swelling Verified 05/10/20 18:43 Penicillins Allergy Swelling Verified 05/10/20 18:43 poison dylon extract Allergy Unknown Verified 05/10/20 18:43 poison oak extract Allergy Unknown Verified 05/10/20 18:43 poison sumac extract Allergy Unknown Verified 05/10/20 18:43 pregabalin [From Lyrica] AdvReac can't Verified 05/10/20 18:43 walk, muscle and joint pain Review of Systems ROS Statement: Those systems with pertinent positive or pertinent negative responses have been documented in the HPI. ROS Other: All systems not noted in ROS Statement are negative. EKG Findings - EKG Results: EKG: interpreted by TIMD, sinus rhythm (Sinus rhythm 86 DE interval 150 QRS duration 82 QT since QTC 380/464 nonspecific anterior configuration is correlates with the one submitted by EMS also was seen in a previous EKG dated 11/10/19) 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 History of Any Multi-Drug Resistant Organisms: None Reported Past Surgical History: Joint Replacement, Orthopedic Surgery Additional Past Surgical History / Comment(s): cervical fusion, right hip replacement, septoplasty, arthroscopy rt knee Past Anesthesia/Blood Transfusion Reactions: No Reported Reaction Additional Past Anesthesia/Blood Transfusion Reaction / Comment(s): states no diff intubation Past Psychological History: ADD/ADHD Smoking Status: Current every day smoker Past Alcohol Use History: None Reported Past Drug Use History: None Reported - Past Family History Mother Family Medical History: Cancer, Deep Vein Thrombosis (DVT) General Exam - General Exam Comments Initial Comments: This is a well-developed well-nourished awake alert oriented 3 male Limitations: no limitations General appearance: alert, anxious Head exam: Present: atraumatic, normocephalic, normal inspection Eye exam: Present: normal appearance, PERRL, EOMI. Absent: scleral icterus, conjunctival injection, periorbital swelling ENT exam: Present: normal exam, mucous membranes moist Neck exam: Present: normal inspection. Absent: tenderness, meningismus, lymphadenopathy Respiratory exam: Present: normal lung sounds bilaterally. Absent: respiratory distress, wheezes, rales, rhonchi, stridor Cardiovascular Exam: Present: regular rate, normal rhythm, normal heart sounds. Absent: systolic murmur, diastolic murmur, rubs, gallop, clicks GI/Abdominal exam: Present: soft, normal bowel sounds. Absent: distended, tenderness, guarding, rebound, rigid Extremities exam: Present: normal inspection, full ROM, normal capillary refill. Absent: tenderness, pedal edema, joint swelling, calf tenderness Back exam: Present: normal inspection Neurological exam: Present: alert, oriented X3, CN II-XII intact Psychiatric exam: Present: normal affect, normal mood Skin exam: Present: warm, dry, intact, normal color. Absent: rash Course Vital Signs 05/10/20 05/10/20 05/10/20 17:47 18:00 18:01 Temperature 98.4 F Pulse Rate 86 89 Respiratory 16 17 Rate Blood Pressure 135/89 171/96 O2 Sat by Pulse 99 99 Oximetry 05/10/20 05/10/20 19:00 19:46 Temperature Pulse Rate 89 84 Respiratory 16 18 Rate Blood Pressure 159/92 169/98 O2 Sat by Pulse 98 100 Oximetry - Reevaluation(s) Reevaluation #1: 05/10/20 19:20 Patient was given additional nitroglycerin with resolution of the pain in his arms. Reevaluation #2: 05/10/20 20:36 No further pain or nitroglycerin. Procedures - [facility] Protocol (Time Out) Nurse: Rachel Diaz Chest Pain MDM - MDM (Reviewed no acute findings discuss findings with the patient. Also Dr. Nicholson the patient be admitted the presentation is consistent with unstable angina CT reveals no evidence of any pulmonary emboli. Critical Care Time Critical Care Time: Yes Total Critical Care Time: 31 Critical Care Time: Critical care time including initial presentation with history physical labs x- rays discussed with paramedics on arrival multiple reevaluation the patient to responsive therapy discuss with the patient regarding findings discussed with Dr. Nicholson admission orders and documentation of the above Disposition Clinical Impression: Unstable angina pectoris, Chest pain Disposition: ADMITTED IP TO THIS HOSP Condition: Fair Referrals: Reuben Nicholson MD [Primary Care Provider] - 1-2 days
--- NOTE | 2020-05-10 19:54 | CT ---
EXAMINATION TYPE: CT angio chest DATE OF EXAM: 05/10/2020 7:32 PM COMPARISON: Same-day radiograph. HISTORY: Chest pain. CT DLP: 529.6 mGycm Automated exposure control for dose reduction was used. CONTRAST: CTA scan of the thorax is performed with IV Contrast, patient injected with 100 mL of Isovue 370, pul monary embolism protocol. MIP images are created and reviewed. FINDINGS: LUNGS: The lungs are grossly clear, there is no concerning parenchymal mass or nodule identified. T here is no pleural effusion or pneumothorax seen. The tracheobronchial tree is patent. MEDIASTINUM: There is satisfactory enhancement of the pulmonary artery and its branches, there is no CT evidence for pulmonary embolism. There is advanced thoracic aorta and coronary atherosclerotic di sease. There are no greater than 1 cm hilar or mediastinal lymph nodes. No pericardial effusion is seen. OTHER: Stable 2.3 cm hyperattenuating left hepatic focus, dating back to 03/25/2018 CT and most cons istent with benign entity such as hemangioma. Otherwise no significant abnormality is seen. IMPRESSION: NO ACUTE PE OR OTHER CARDIOPULMONARY ABNORMALITY. CHRONIC FINDINGS ABOVE.
[2020-05-10] MEDS ORDERED: NITROGLYCERIN SL TABS 0.4 MG TAB SUBLINGUAL PRN (20:38)
[2020-05-11] MEDS: NITROGLYCERIN OINT 1 INCH/GM PACKET TOPICAL SCH ×2 (01:06→05:09)
[2020-05-11] MEDS ORDERED: ATORVASTATIN 80 MG TAB PO STA (08:04)
[2020-05-11] MEDS ORDERED: SODIUM CHLORIDE 0.9% 1,000 ML in EMPTY BAG 1 BAG IV ONE (08:04)
[2020-05-11] MEDS ORDERED: ALPRAZolam 0.25 MG TAB PO PRN (08:04)
[2020-05-11] MEDS ORDERED: ALPRAZolam 0.5 MG TAB PO PRN (08:04)
[2020-05-11] MEDS: CHOLECALCIFEROL 25 MCG (1000 IU) TABLET PO SCH (08:20)
[2020-05-11] MEDS: ZINC SULFATE 220 MG CAP PO SCH (08:20)
--- NOTE | 2020-05-11 08:35 | P.HPIM ---
History of Present Illness H&P Date: 05/11/20 Chief Complaint: Substernal chest pressure. This is a history and physical 65-year-old white male who recently had left hip repair. The patient states he has been having substernal chest pressure which has been radiating to the shoulder. He had a longtime episode yesterday which prompted appropriate evaluation in the emergency room. He is now admitted for ruling out myocardial infarction. Review of Systems Constitutional: Denies chills, Denies fever Eyes: denies blurred vision, denies pain Ears, nose, mouth and throat: Denies headache, Denies sore throat Cardiovascular: Reports chest pain Gastrointestinal: Denies abdominal pain, Denies diarrhea, Denies nausea, Denies vomiting Musculoskeletal: Denies myalgias 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 History of Any Multi-Drug Resistant Organisms: None Reported Past Surgical History: Joint Replacement, Orthopedic Surgery Additional Past Surgical History / Comment(s): cervical fusion, right hip replacement, septoplasty, arthroscopy rt knee Past Anesthesia/Blood Transfusion Reactions: No Reported Reaction Additional Past Anesthesia/Blood Transfusion Reaction / Comment(s): states no diff intubation Past Psychological History: ADD/ADHD Smoking Status: Current every day smoker Past Alcohol Use History: None Reported Additional Past Alcohol Use History / Comment(s): smokes 1/2ppd Past Drug Use History: None Reported - Past Family History Mother Family Medical History: Cancer, Deep Vein Thrombosis (DVT) Medications and Allergies Home Medications Medication Instructions Recorded Confirmed Type Dextroamphetamine/Amphetamine 20 mg PO DAILY 05/22/16 05/10/20 History [Adderall] Cholecalciferol [Vitamin D3 (25 50 mcg PO DAILY 05/10/20 05/10/20 History Mcg = 1000 Iu)] Priyanka Apple Cider Vinegar Gummies 2 tab PO DAILY 05/10/20 05/10/20 History Tamsulosin [Flomax] 0.4 mg PO PC-SUPPER 05/10/20 05/10/20 History Zinc 50 mg PO DAILY 05/10/20 05/10/20 History Allergies Allergy/AdvReac Type Severity Reaction Status Date / Time duloxetine [From Cymbalta] Allergy Severe throat Verified 05/10/20 18:43 swelling, could not swallow prochlorperazine Allergy Severe "symptoms Verified 05/10/20 18:43 [From Compazine] similar to a stroke" acyclovir Allergy Swelling Verified 05/10/20 18:43 Penicillins Allergy Swelling Verified 05/10/20 18:43 poison dylon extract Allergy Unknown Verified 05/10/20 18:43 poison oak extract Allergy Unknown Verified 05/10/20 18:43 poison sumac extract Allergy Unknown Verified 05/10/20 18:43 pregabalin [From Lyrica] AdvReac can't Verified 05/10/20 18:43 walk, muscle and joint pain Physical Exam Vitals: Vital Signs Temp Pulse Pulse Resp BP BP Pulse Ox 05/11/20 07:10 98.2 F 87 16 129/73 96 05/11/20 01:02 92 16 05/11/20 01:01 98.0 F 92 16 144/65 95 05/10/20 22:00 16 05/10/20 21:58 90 15 169/68 98 05/10/20 20:57 98.2 F 86 16 169/89 98 05/10/20 19:46 84 18 169/98 100 05/10/20 19:00 89 16 159/92 98 05/10/20 18:01 99 05/10/20 18:00 89 17 171/96 99 05/10/20 17:47 98.4 F 86 16 135/89 Intake and Output 05/10/20 05/11/20 05/11/20 22:59 06:59 14:59 Intake Total 87.851 Balance 87.851 Intake: Intake, IV Titration 87.851 Amount Heparin Sod,Pork in 0.45% 87.851 NaCl 25,000 unit In 0.45 % NaCl 1 250ml.bag @ 10.5 UNITS/KG/HR 10.002 mls/ hr IV .Q24H [facility] Rx#: [id number] Other: # Voids 1 1 Weight 95.254 kg - Constitutional General appearance: no acute distress - EENT Eyes: EOMI - Neck Neck: no lymphadenopathy - Respiratory Respiratory: bilateral: CTA - Cardiovascular Rhythm: regular Heart sounds: normal: S1, S2 Abnormal Heart Sounds: no S3 Gallop - Gastrointestinal General gastrointestinal: soft, no tenderness - Integumentary Integumentary: no rash Results CBC & Chem 7: 05/10/20 17:49 05/10/20 17:49 Labs: Abnormal Lab Results - Last 24 Hours (Table) 05/10/20 05/10/20 05/10/20 Range/Units 17:49 17:49 17:49 RBC 3.98 L (4.30-5.90) m/uL Hgb 12.9 L (13.0-17.5) gm/dL Hct 37.6 L (39.0-53.0) % APTT 21.3 L (22.0-30.0) sec D-Dimer 0.69 H (<0.60) mg/L FEU Sodium 135 L (137-145) mmol/L Glucose 113 H (74-99) mg/dL Troponin I (0.000-0.034) ng/mL 05/10/20 05/11/20 05/11/20 Range/Units 21:16 01:38 06:30 RBC (4.30-5.90) m/uL Hgb (13.0-17.5) gm/dL Hct (39.0-53.0) % APTT (22.0-30.0) sec D-Dimer (<0.60) mg/L FEU Sodium (137-145) mmol/L Glucose (74-99) mg/dL Troponin I 0.064 H* 0.166 H* 0.247 H* (0.000-0.034) ng/mL Thrombosis Risk Factor Assmnt - Choose All That Apply Each Factor Represents 1 point: Obesity (BMI >25), Varicose veins Each Risk Factor Represents 2 Points: Age 61-74 years Thrombosis Risk Factor Assessment Total Risk Factor Score: 4 Thrombosis Risk Factor Assessment Level: Moderate Risk Assessment and Plan (1) Chest pain Current Visit: Yes Status: Acute Code(s): R07.9 - CHEST PAIN, UNSPECIFIED SNOMED Code(s): 32152061 (2) Attention deficit disorder Current Visit: No Status: Acute Code(s): F98.8 - OTH BEHAV/EMOTN DISORD W ONSET USLY OCCUR IN CHLDHD AND ADOL SNOMED Code(s): 03659960 (3) Chronic pain Current Visit: No Status: Acute Code(s): G89.29 - OTHER CHRONIC PAIN SNOMED Code(s): 26260904 (4) Status post total hip replacement, left Current Visit: No Status: Acute Code(s): Z96.642 - PRESENCE OF LEFT ARTIFICIAL HIP JOINT SNOMED Code(s): 589562300298 Plan: Rule out myocardial infraction. Stress test versus cardiac catheterization. We will continue to follow. Reconcile medications as necessary. See orders otherwise. The patient is otherwise full code
[2020-05-11] MEDS ORDERED: LIDOCAINE 1% INJ 10MG/ML (20 ML MDV) ONE (08:47)
[2020-05-11] MEDS ORDERED: HEPARIN SODIUM 1,000 UN/ML (10ML VL) ONE (08:48)
[2020-05-11] MEDS ORDERED: VERAPAMIL 2.5 MG/ML 2 ML AMP ONE (08:48)
[2020-05-11] MEDS ORDERED: IV FLUID CONTINUATION 1,000 ML IV ONE (08:50)
[2020-05-11] MEDS ORDERED: fentaNYL (PF) 50 MCG/ML 2 ML AMP ONE (08:51)
[2020-05-11] MEDS ORDERED: ASPIRIN 325 MG TAB PO SCH (09:00)
[2020-05-11] MEDS ORDERED: NON FORMULARY DRUG (Dextroamphetamine/Amphetamine [Adderall] 20 MG Tablet) PO SCH (09:00)
[2020-05-11] MEDS ORDERED: fentaNYL (PF) 50 MCG/ML 2 ML AMP IV ONE (09:02)
[2020-05-11] MEDS ORDERED: LIDOCAINE 1% INJ 10MG/ML (20 ML MDV) SQ ONE (09:04)
[2020-05-11] MEDS ORDERED: VERAPAMIL SYRINGE (5 MG/10 ML) INTRAARTER ONE (09:05)
[2020-05-11] MEDS ORDERED: HEPARIN SODIUM 1,000 UN/ML (10ML VL) IV ONE ×3 (09:13→09:22)
[2020-05-11] MEDS ORDERED: PRASUGREL 10 MG TAB ONE (09:15)
[2020-05-11] MEDS ORDERED: PRASUGREL 10 MG TAB PO ONE (09:17)
[2020-05-11] MEDS ORDERED: IOPAMIDOL-370 125ML BTL INJ ONE (09:25)
[2020-05-11] MEDS ORDERED: NITROGLYCERIN 1000MCG/10ML SYRINGE INTRACORON ONE (09:36)
--- NOTE | 2020-05-11 09:39 | P.CRDCN ---
History of Present Illness History of present illness: HISTORY OF PRESENTING ILLNESS This is a pleasant 65-year-old male past medical history significant for chronic nicotine dependence, obstructive sleep apnea and hypertension but is currently untreated. He denies prior history of coronary artery disease and does not follow in the office with a geospatial developer. We have been asked to see in consultation for chest pain. He states over the previous couple of days he has been experiencing discomfort in the midsternal region described as a fire burning in his chest with associated left arm and jaw numbness and tingling, diaphoresis and increased fatigue. He states the symptoms are exacerbated by activity or exertion and improved with rest. On arrival EMS did give him nitroglycerin which also didn't improve his pain. He is seen and examined sitting up in bed in no acute distress. He currently is chest pain-free. DIAGNOSTICS EKG reveals sinus mechanism with no acute ST or T wave abnormalities noted. Telemetry tracings indicate sinus mechanism with no arrhythmias. Chest xray negative for an acute cardiopulmonary process. CTA negative for pulmonary embolism with evidence of advanced thoracic aortic and coronary artery calcifications. Laboratory reviewed, WBC 8.9, hemoglobin 12.9, platelets 302, d-dimer 0.69, sodium 135, potassium 4.1, creatinine 1.11, magnesium 1.7, troponin 0.024, 0.064, 0.166, 0.247 and proBNP 63. He takes no daily cardiac medications. REVIEW OF SYSTEMS At the time of my exam: CONSTITUTIONAL: Denies fever or chills. CARDIOVASCULAR: Denies chest pain, shortness of breath, orthopnea, PND or p alpitations. RESPIRATORY: Denies cough. GASTROINTESTINAL: Denies abdominal pain, diarrhea, constipation, nausea or vomiting. MUSCULOSKELETAL: Denies myalgias. NEUROLOGIC: Denies numbness, tingling, headacbe or weakness. ENDOCRINE: Denies fatigue, weight change, polydipsia or polyurina. GENITOURINARY: Denies burning, hematuria or urgency with micturation. HEMATOLOGIC: Denies history of anemia or bleeding. PHYSICAL EXAMINATION Blood pressure 129/73 heart rate 87 afebrile and maintaining oxygen saturation on room air. CONSTITUTIONAL: No apparent distress. HEENT: Head is normocephalic. Pupils are equal, round. Sclerae anicteric. Mucous membranes of the mouth are moist. No JVD. No carotid bruit. CHEST EXAMINATION: Lungs are clear to auscultation. No chest wall tenderness is noted on palpation or with deep breathing. HEART EXAMINATION: Regular rate and rhythm. S1, S2 heard. Soft systolic ejection murmur at the base, no gallops or rub. ABDOMEN: Soft, nontender. Positive bowel sounds. EXTREMITIES: 2+ peripheral pulses, no lower extremity edema and no calf tenderness. NEUROLOGIC EXAMINATION: Patient is awake, alert and oriented x3. ASSESSMENT Unstable angina Non-ST elevated myocardial infarction Chronic nicotine dependence History of hypertension currently untreated due to medication intolerance Obstructive sleep apnea PLAN Proceed with cardiac catheterization. I have discussed the risks, benefits and alternative therapies for the above-mentioned procedure and for both josef tion/analgesia as well as necessary blood product administration, if indicated, as they pertain to this patient. The patient has indicated understanding and acceptance of the risks and procedures discussed. Questions have been answered appropriately and he is agreeable to move forward with the above-stated procedure. Obtain 2-D echocardiogram and Doppler study to assess cardiac structure and fun ction. Recommend complete smoking cessation. Further recommendations to follow based upon clinical course. Thank you kindly for this consultation. Nurse Practitioner note has been reviewed, I agree with a documented findings and plan of care. Patient was seen and examined. 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 History of Any Multi-Drug Resistant Organisms: None Reported Past Surgical History: Joint Replacement, Orthopedic Surgery Additional Past Surgical History / Comment(s): cervical fusion, right hip replacement, septoplasty, arthroscopy rt knee Past Anesthesia/Blood Transfusion Reactions: No Reported Reaction Additional Past Anesthesia/Blood Transfusion Reaction / Comment(s): states no diff intubation Past Psychological History: ADD/ADHD Smoking Status: Current every day smoker Past Alcohol Use History: None Reported Additional Past Alcohol Use History / Comment(s): smokes 1/2ppd Past Drug Use History: None Reported - Past Family History Mother Family Medical History: Cancer, Deep Vein Thrombosis (DVT) Medications and Allergies Home Medications Medication Instructions Recorded Confirmed Type Dextroamphetamine/Amphetamine 20 mg PO DAILY 05/22/16 05/10/20 History [Adderall] Cholecalciferol [Vitamin D3 (25 50 mcg PO DAILY 05/10/20 05/10/20 History Mcg = 1000 Iu)] Priyanka Apple Cider Vinegar Gummies 2 tab PO DAILY 05/10/20 05/10/20 History Tamsulosin [Flomax] 0.4 mg PO PC-SUPPER 05/10/20 05/10/20 History Zinc 50 mg PO DAILY 05/10/20 05/10/20 History Allergies Allergy/AdvReac Type Severity Reaction Status Date / Time duloxetine [From Cymbalta] Allergy Severe throat Verified 05/10/20 18:43 swelling, could not swallow prochlorperazine Allergy Severe "symptoms Verified 05/10/20 18:43 [From Compazine] similar to a stroke" acyclovir Allergy Swelling Verified 05/10/20 18:43 Penicillins Allergy Swelling Verified 05/10/20 18:43 poison dylon extract Allergy Unknown Verified 05/10/20 18:43 poison oak extract Allergy Unknown Verified 05/10/20 18:43 poison sumac extract Allergy Unknown Verified 05/10/20 18:43 pregabalin [From Lyrica] AdvReac can't Verified 05/10/20 18:43 walk, muscle and joint pain Physical Exam Vitals: Vital Signs Temp Pulse Pulse Resp BP BP Pulse Ox 05/11/20 07:10 98.2 F 87 16 129/73 96 05/11/20 01:02 92 16 05/11/20 01:01 98.0 F 92 16 144/65 95 05/10/20 22:00 16 05/10/20 21:58 90 15 169/68 98 05/10/20 20:57 98.2 F 86 16 169/89 98 05/10/20 19:46 84 18 169/98 100 05/10/20 19:00 89 16 159/92 98 05/10/20 18:01 99 05/10/20 18:00 89 17 171/96 99 05/10/20 17:47 98.4 F 86 16 135/89 Intake and Output 05/10/20 05/11/20 05/11/20 22:59 06:59 14:59 Intake Total 87.851 Balance 87.851 Intake: Intake, IV Titration 87.851 Amount Heparin Sod,Pork in 0.45% 87.851 NaCl 25,000 unit In 0.45 % NaCl 1 250ml.bag @ 10.5 UNITS/KG/HR 10.002 mls/ hr IV .Q24H [facility] Rx#: [id number] Other: # Voids 1 1 Weight 95.254 kg Results 05/10/20 17:49 05/10/20 17:49 Cardiac Enzymes 05/10/20 05/10/20 05/10/20 Range/Units 17:49 17:49 21:16 AST 26 (17-59) U/L Troponin I 0.024 0.064 H* (0.000-0.034) ng/mL 05/11/20 05/11/20 Range/Units 01:38 06:30 AST (17-59) U/L Troponin I 0.166 H* 0.247 H* (0.000-0.034) ng/mL Coagulation 05/10/20 05/11/20 Range/Units 17:49 01:38 PT 9.6 (9.0-12.0) sec APTT 21.3 L 27.4 (22.0-30.0) sec CBC 05/10/20 Range/Units 17:49 WBC 8.9 (3.8-10.6) k/uL RBC 3.98 L (4.30-5.90) m/uL Hgb 12.9 L (13.0-17.5) gm/dL Hct 37.6 L (39.0-53.0) % Plt Count 302 (150-450) k/uL Comprehensive Metabolic Panel 05/10/20 Range/Units 17:49 Sodium 135 L (137-145) mmol/L Potassium 4.1 (3.5-5.1) mmol/L Chloride 103 (98-107) mmol/L Carbon Dioxide 24 (22-30) mmol/L BUN 15 (9-20) mg/dL Creatinine 1.11 (0.66-1.25) mg/dL Glucose 113 H (74-99) mg/dL Calcium 9.7 (8.4-10.2) mg/dL AST 26 (17-59) U/L ALT 27 (4-49) U/L Alkaline Phosphatase 81 (38-126) U/L Total Protein 6.3 (6.3-8.2) g/dL Albumin 3.8 (3.5-5.0) g/dL Current Medications Generic Name Dose Route Start Last Admin Trade Name Freq PRN Reason Stop Dose Admin Alprazolam 0.25 mg 05/11/20 08:04 Alprazolam 0.25 Mg Tab PO Q6HR PRN Mild Anxiety Alprazolam 0.5 mg 05/11/20 08:04 Alprazolam 0.5 Mg Tab PO Q6HR PRN Moderate Anxiety Aspirin 325 mg 05/11/20 09:00 Aspirin 325 Mg Tab PO DAILY [facility] Atorvastatin Calcium 80 mg 05/11/20 08:04 Atorvastatin 80 Mg Tab PO 05/11/20 08:05 ONCE STA Cholecalciferol 50 mcg 05/11/20 09:00 Cholecalciferol 25 Mcg (1000 Iu) Tablet PO DAILY [facility] Heparin Sodium (Porcine) 0 unit 05/10/20 18:57 05/11/20 04:28 Heparin Sodium,Porcine 5,000 Unit/Ml 1 Ml Vial IV 4,000 unit PER PROTOCOL PRN Administration Low PTT Protocol Heparin Sodium/Sodium Chloride 250 mls @ 10.002 mls/hr 05/10/20 19:00 05/11/20 04:30 25,000 unit/ Sodium Chloride IV 13.5 units/kg/hr .Q24H [facility] 12.859 mls/hr Titration Protocol 10.5 UNITS/KG/HR Sodium Chloride 1,000 ml/ IV 1,000 mls @ 95.254 mls/hr 05/11/20 08:04 Solution IV 05/11/20 18:33 .[id number] ONE 1 ML/KG/HR Heparin Sodium (Porcine) 10, 1,001 mls @ 999 mls/hr 05/12/20 07:00 000 unit/ Sodium Chloride IRRIGATION 05/12/20 23:00 ONCE PRN INTRA-OP Heparin Sodium (Porcine) 2,500 250.5 mls @ 250 mls/hr 05/12/20 07:00 unit/ Sodium Chloride IRRIGATION 05/12/20 23:00 ONCE PRN INTRA-OP Nitroglycerin 0.4 mg 05/10/20 20:38 Nitroglycerin Sl Tabs 0.4 Mg Tab SUBLINGUAL Q5M PRN Chest Pain Nitroglycerin 1 inch 05/11/20 00:00 05/11/20 05:09 Nitroglycerin Oint 1 Inch/Gm Packet TOPICAL Not Given Q6HR [facility] Tamsulosin HCl 0.4 mg 05/11/20 18:30 Tamsulosin 0.4 Mg Cap.Er.24h PO PC-SUPPER [facility] Zinc Sulfate 220 mg 05/11/20 09:00 Zinc Sulfate 220 Mg Cap PO DAILY [facility] Intake and Output 05/10/20 05/11/20 05/11/20 22:59 06:59 14:59 Intake Total 87.851 Balance 87.851 Intake: Intake, IV Titration 87.851 Amount Heparin Sod,Pork in 0.45% 87.851 NaCl 25,000 unit In 0.45 % NaCl 1 250ml.bag @ 10.5 UNITS/KG/HR 10.002 mls/ hr IV .Q24H [facility] Rx#: [id number] Other: # Voids 1 1 Weight 95.254 kg 05/10/20 17:49 05/10/20 17:49
[2020-05-11] MEDS ORDERED: IOPAMIDOL-370 100ML BTL INJ ONE (09:40)
[2020-05-11 09:43] LABS: Basophils # (A) 0.08 X 10*3/uL (0.00-0.10); Eosinophils # (A) 0.28 X 10*3/uL (0.04-0.35); Eosinophils % (A) 3.5 %; HCT 38.2 % (39.6-50.0); HGB 12.8 g/dL (13.0-17.0); Lymphocytes # (A) 2.69 X 10*3/uL (0.90-5.00); Lymphocytes % (A) 33.8 %; MCH 32.2 pg (27.0-32.0); MCHC 33.5 g/dL (32.0-37.0); MCV 96.2 fL (80.0-97.0); Mean Platelet Volume 11.4 fL (9.5-12.2); Monocytes # (A) 0.72 X 10*3/uL (0.20-1.00); Monocytes % (A) 9.1 %; Neutrophils # (A) 4.16 X 10*3/uL (1.80-7.70); Neutrophils % (A) 52.3 %; Platelet Count 318 X 10*3/uL (140-440); RBC 3.97 X 10*6/uL (4.40-5.60); RDW 12.5 % (11.5-14.5); WBC 7.95 X 10*3/uL (4.50-10.00)
[2020-05-11] MEDS ORDERED: MAG HYDROX/AL HYDROX/SIMETH 30 ML CUP PO PRN (10:04)
[2020-05-11] MEDS ORDERED: ZOLPIDEM 5 MG TAB PO PRN (10:04)
[2020-05-11] MEDS ORDERED: ATROPINE SULFATE 0.1 MG/ML 10ML SYRINGE IV PRN (10:04)
[2020-05-11] MEDS ORDERED: RX INFO: IV CONTRAST WAS GIVEN 1 EACH MISC MISCELLANE PRN (10:04)
[2020-05-11] MEDS ORDERED: NITROGLYCERIN SL TABS 0.4 MG TAB SUBLINGUAL PRN (10:04)
[2020-05-11] MEDS ORDERED: SODIUM CHLORIDE 0.9% 1,000 ML IV SCH (10:15)
--- NOTE | 2020-05-11 10:56 | CC ---
CARDIAC CATHETERIZATION REPORT Mr. Salcedo is a 65-year-old male with no prior documented history of coronary artery disease who presented with symptoms of chest discomfort and mild elevation of his troponin consistent with non ST-segment elevation myocardial infarction. In view of that, recommendation was made regarding cardiac catheterization. The procedure as well as risks and the complications were discussed with the patient who is in full understanding and agreement. PROCEDURE: Patient was brought to supervisor laboratory animal facility in a fasting semi-sedated state after receiving fentanyl and Benadryl and achieving moderate conscious sedated state. Using Xylocaine anesthesia and Seldinger technique, a 6-Scottish sheath was introduced in the right radial artery. Selective right and left coronary angiography were performed using 5- Scottish 3.5 bend right and left Janusz catheter. Multiple views of the coronary artery including hemiaxial views were obtained. Following that, angioplasty and stenting was performed. Following that, using the guiding catheter, the aortic valve was crossed and left ventricular end-diastolic pressure was calculated. Following that, catheter and sheath were removed. Hemostasis was obtained with deployment of a TR band. There was no immediate complication. Patient was returned to his room in stable condition. Of note, the patient received a total of 9000 units of intravenous heparin throughout the procedure and his ACT was followed. He also received intra-arterial verapamil. FINDINGS: FLUOROSCOPY: There was significant calcification involving the left anterior descending artery. LEFT ANTERIOR DESCENDING ARTERY: This is a large-sized vessel reaching to the apex with a wraparound apex segment giving rise to a diagonal branch proximally. The left anterior descending artery has 20% plaque proximally. After the takeoff of the diagonal branch, there is a plaque of 30%. The rest of the vessel has no high-grade stenosis. The diagonal branch has no evidence of high-grade stenosis. LEFT CIRCUMFLEX: This is a large dominant vessel bifurcating distally PDA and posterolateral segment and branches giving rise to a large obtuse marginal branch proximally. The LCX distally at the bifurcation has a 95% stenosis. The rest of the vessel has mild intimal disease without any evidence of high-grade stenosis. RIGHT CORONARY ARTERY: This is a small nondominant vessel that has no evidence of high- grade stenosis. LEFT VENTRICULOGRAM: Left ventriculogram was not performed. HEMODYNAMICS: There was no gradient across the aortic valve. The left ventricular end- diastolic pressure was 14 to 16 mmHg. CONCLUSION: 1. Calcified coronary artery. 2. Critical stenosis in the distal dominant left circumflex. 3. Mild to moderate disease in the LAD. RECOMMENDATION: In view of finding anatomy, I recommend proceeding with angioplasty and stenting. The procedure as well as the risks and the complications were discussed with the patient who is in full understanding and agreement. HOWARD / ADRIAN: [id number] / MTDD
[2020-05-11 11:00] LABS: Chol/HDL Ratio 9.82
--- NOTE | 2020-05-11 11:00 | PTCA ---
PERCUTANEOUSTRANS CORORONARY ANGIOGRAPHY Mr. Salcedo is a 65-year-old male who presented with symptoms of chest discomfort and evidence of non ST-segment elevation myocardial infarction. In view of that, he underwent cardiac catheterization and with that found to have critical stenosis involving the distal dominant left circumflex. In view of that, recommendation was made regarding angioplasty and stenting. The procedure as well as the risks and the complications were discussed with the patient who is in full understanding and agreement. PROCEDURE: A 6-Citizen Of [place] EBU 3.75 guiding catheter introduced in the system. After cannulating the left main, a 0.014 balanced medium weight J-wire was advanced across the lesion and positioned distally. Subsequently, 2.5 x 12 mm NC Trek balloon was advanced and 2 inflations at 10 atmospheres were done. Following that, the balloon was removed and a 2.75 x 23 mm Xience Liv stent was deployed and post dilated at 16 atmospheres. After the last inflation, after appropriate wait, the balloon and the guidewire were withdrawn back in the guiding catheter. Images were obtained and repeated. Those images reveal stable successful stenting. At that point, the guiding catheter was used to cross the aortic valve. Left ventricular end-diastolic pressure was calculated. Following that, catheter and sheath were removed. Hemostasis was obtained with deployment of TR band. There was no immediate complication. The patient is returned to his room in stable condition. Of note, the patient received a total of 9000 units of intravenous heparin, his ACT was followed and he has received an oral loading dose of Effient. He had chest discomfort with the inflation that resolved at the end procedure. RESULTS: Successful stenting of the distal dominant left circumflex with reduction of stenosis from 95% to 0%. RECOMMENDATION: Patient will be continued on aspirin, Effient, beta blockers and JAVIER inhibitor. The importance of dual antiplatelet treatment was discussed with the patient who is in full understanding and agreement. Duration of procedure is 37 minutes. MMODL / IJN: [id number] /
--- NOTE | 2020-05-11 11:03 | LTR ---
May 11, 2020 Re: Jim Salcedo Dear Dr. Nicholson: I had the opportunity to perform cardiac catheterization and coronary angioplasty on Mr. Salcedo at [facility] on the 11 of May and a full copy of the procedure note will be forwarded to you. In brief, he was found to have a critical stenosis in the distal dominant left circumflex, underwent successful stenting of that vessel. I am hopeful that this procedure will stabilize his status. Thank you again for allowing me the opportunity to participate in his care. Please feel free to call for any questions. Sincerely yours, Chelsea Wu MD MMLYNDAL / ASHLYNN: [id number] /
[2020-05-11 11:30] LABS: INR 0.97 (0.90-1.11); Prothrombin Time 10.6 sec (9.9-11.9)
--- NOTE | 2020-05-11 11:57 | ECHOF ---
Referral Reason:nstemi MEASUREMENTS -------- HEIGHT: 182.9 cm WEIGHT: 95.3 kg BP: IVSd: 1.3 cm (0.6 - 1.1) LVIDd: 4.9 cm (3.9 - 5.3) LVPWd: 1.5 cm (0.6 - 1.1) IVSs: 1.4 cm LVIDs: 3.8 cm LVPWs: 1.8 cm LAESV Index (A-L): 29.13 ml/m Ao Diam: 3.1 cm (2.0 - 3.7) AV Cusp: 1.8 cm (1.5 - 2.6) MV EXCURSION: 17.007 mm (> 18.000) MV EF SLOPE: 114 mm/s (70 - 150) EPSS: 1.8 cm MV E Vinayak: 0.60 m/s MV DecT: 217 ms MV A Vinayak: 1.12 m/s MV E/A Ratio: 0.53 RAP: 5.00 mmHg RVSP: 13.19 mmHg FINDINGS -------- Sinus rhythm. This was a technically adequate study. The left ventricular size is normal. There is mild concentric left ventricular hypertrophy. Overa ll left ventricular systolic function is low-normal with, an EF between 50 - 55 %. The diastolic fi lling pattern is normal for the age of the patient 12.30. The right ventricle is normal in size. LA is midly dilated 29-33ml/m2. The right atrial size is normal. The aortic valve is trileaflet, and appears structurally normal. No aortic stenosis or regurgitation. The mitral valve is normal. Mild mitral regurgitation is present. The tricuspid valve appears structurally normal. Mild tricuspid regurgitation present. Right vent ricular systolic pressure is normal at < 35 mmHg. There is no pulmonic regurgitation present. The aortic root size is normal. Echo free space represents a pericardial fat pad. CONCLUSIONS -------- 1. There is mild concentric left ventricular hypertrophy. 2. Overall left ventricular systolic function is low-normal with, an EF between 50 - 55 %. 3. LA is midly dilated 29-33ml/m2. 4. The aortic valve is trileaflet, and appears structurally normal. No aortic stenosis or regurgitati on. 5. Mild mitral regurgitation is present. 6. Mild tricuspid regurgitation present. 7. Echo free space represents a pericardial fat pad. CALENDER SUPERVISOR: Leora Covington RDCS
[2020-05-11] MEDS ORDERED: METOPROLOL TARTRATE 25 MG TAB PO STA (14:40)
[2020-05-11 15:07] VITALS: BMI 28.5
[2020-05-11] MEDS ORDERED: TAMSULOSIN 0.4 MG CAP.ER.24H PO SCH (18:30)
[2020-05-11] MEDS ORDERED: ATORVASTATIN 80 MG TAB PO SCH (21:00)
[2020-05-11] MEDS: METOPROLOL TARTRATE 25 MG TAB PO SCH (22:01)
[2020-05-12] MEDS ORDERED: HEPARIN SODIUM,PORCINE 2,500 UNIT in SODIUM CHLORIDE 0.9% 250 ML IRRIGATION PRN (07:00)
[2020-05-12] MEDS ORDERED: HEPARIN SODIUM,PORCINE 10,000 UNIT in SODIUM CHLORIDE 0.9% 1,000 ML IRRIGATION PRN (07:00)
[2020-05-12] MEDS: ZINC SULFATE 220 MG CAP PO SCH (07:20)
[2020-05-12] MEDS: METOPROLOL TARTRATE 25 MG TAB PO SCH (07:20)
[2020-05-12] MEDS: CHOLECALCIFEROL 25 MCG (1000 IU) TABLET PO SCH (07:20)
[2020-05-12 07:40] VITALS: BP 157/74; PULSE 79; RESP 20; TEMP 98.2
--- NOTE | 2020-05-12 08:26 | P.DS ---
Providers Date of admission: 05/11/20 12:43 Attending physician: Reuben Nicholson Consults: 05/10/20 20:38 Consult Physician Urgent Consulting Provider: Syed Hendrickson Consult Reason/Comments: Chest pain, unstable angina Do you want consulting provider notified?: Yes 05/11/20 10:04 Consult Physician Routine Consulting Provider: [facility] Consult Reason/Comments: Post Interventional patient Do you want consulting provider notified?: Already Contacted Primary care physician: Reuben Nicholson - Discharge Diagnosis(es) (1) Chest pain Current Visit: Yes Status: Acute (2) Attention deficit disorder Current Visit: No Status: Acute (3) Chronic pain Current Visit: No Status: Acute (4) Status post total hip replacement, left Current Visit: No Status: Acute (5) Stented coronary artery Current Visit: Yes Status: Acute Hospital Course: This is a discharge summary 65-year-old white male essentially admitted for unstable angina. The patient had cardiac catheterization resulting in stent to coronary artery. The patient will be discharged once cleared by cardiology and had a long discussion with him regarding lifestyle modifications Patient Condition at Discharge: Stable Plan - Discharge Summary Discharge Rx Participant: No New Discharge Prescriptions: New RX: Prasugrel [Effient] 10 mg PO DAILY #30 tab RX: Aspirin 81 mg PO DAILY #0 chew RX: Atorvastatin [Lipitor] 80 mg PO HS #30 tab RX: Metoprolol Tartrate [Lopressor] 25 mg PO BID #60 tab RX: Nitroglycerin Sl Tabs [Nitrostat] 0.4 mg SUBLINGUAL Q5M PRN #50 tab PRN Reason: Chest Pain Continue RX: Dextroamphetamine/Amphetamine [Adderall] 20 mg PO DAILY RX: Zinc 50 mg PO DAILY RX: Tamsulosin [Flomax] 0.4 mg PO PC-SUPPER RX: Cholecalciferol [Vitamin D3 (25 Mcg = 1000 Iu)] 50 mcg PO DAILY Priyanka Apple Cider Vinegar Gummies 2 tab PO DAILY Discharge Medication List RX: Dextroamphetamine/Amphetamine [Adderall] 20 mg PO DAILY 05/22/16 [History] Priyanka Apple Cider Vinegar Gummies 2 tab PO DAILY 05/10/20 [History] RX: Cholecalciferol [Vitamin D3 (25 Mcg = 1000 Iu)] 50 mcg PO DAILY 05/10/20 [History] RX: Tamsulosin [Flomax] 0.4 mg PO PC-SUPPER 05/10/20 [History] RX: Zinc 50 mg PO DAILY 05/10/20 [History] RX: Prasugrel [Effient] 10 mg PO DAILY #30 tab 05/11/20 [Rx] RX: Aspirin 81 mg PO DAILY #0 chew 05/12/20 [Rx] RX: Atorvastatin [Lipitor] 80 mg PO HS #30 tab 05/12/20 [Rx] RX: Metoprolol Tartrate [Lopressor] 25 mg PO BID #60 tab 05/12/20 [Rx] RX: Nitroglycerin Sl Tabs [Nitrostat] 0.4 mg SUBLINGUAL Q5M PRN #50 tab 05/12/20 [Rx] Follow up Appointment(s)/Referral(s): Chelsea Wu MD [STAFF PHYSICIAN] - 1 Week Reuben Nicholson MD [Primary Care Provider] - 3 Days
--- NOTE | 2020-05-12 08:55 | PN ---
PROGRESS NOTE Mr. Salcedo is a 65-year-old male who presented with symptoms of chest discomfort and troponin elevation. His symptoms were consistent with non- STEMI. He underwent an echocardiogram that showed a preserved systolic function with ejection fraction of 50% to 55%. Subsequently underwent cardiac catheterization, was found to have critical stenosis involving the distal dominant left circumflex, underwent stenting of that vessel. He is doing well this morning. He is ambulating without any recurrent angina. He denies any dizziness or palpitation. On the monitor, he continued to be in sinus mechanism. His medications at this time include aspirin once a day, Effient 10 mg daily, Lipitor 80 mg daily, metoprolol tartrate 25 mg twice a day. PHYSICAL EXAMINATION: Blood pressure running in the 140s and 150s with the heart rate in the 70s. LUNGS: Clear. HEART: Regular rate and rhythm. S1, S2. No S3. No rub appreciated. ABDOMEN: Soft, nontender. EXTREMITIES: No edema. Right radial pulse intact. EKG revealed no acute changes. His renal functions are pending. IMPRESSION: 1. Status post [id number] myocardial infarction with stenting of the dominant left circumflex. 2. History of chronic tobacco use. 3. Hypertension. RECOMMENDATION: I would review the results of his renal function. In the meantime, will continue on the present therapy. I will add to his regimen lisinopril 5 mg daily. He should be able to be discharged home today and followed as an outpatient. HOWARD / ASHLYNN: [id number] /
[2020-05-12 08:57] LABS: INR 0.89 (0.90-1.11); Prothrombin Time 9.8 sec (9.9-11.9)
[2020-05-12] MEDS ORDERED: lisinopriL 5 MG TAB PO SCH (09:00)
[2020-05-12] MEDS ORDERED: ASPIRIN 81 MG PO SCH (09:00)
[2020-05-12 09:01] LABS: Basophils # (A) 0.08 X 10*3/uL (0.00-0.10); Basophils % (A) 0.9 %; Eosinophils # (A) 0.23 X 10*3/uL (0.04-0.35); Eosinophils % (A) 2.6 %; HCT 36.8 % (39.6-50.0); HGB 12.8 g/dL (13.0-17.0); Lymphocytes # (A) 1.93 X 10*3/uL (0.90-5.00); Lymphocytes % (A) 21.9 %; MCHC 34.8 g/dL (32.0-37.0); Mean Platelet Volume 10.3 fL (9.5-12.2); Monocytes # (A) 0.92 X 10*3/uL (0.20-1.00); Monocytes % (A) 10.4 %; Neutrophils # (A) 5.64 X 10*3/uL (1.80-7.70); Neutrophils % (A) 63.9 %; Platelet Count 293 X 10*3/uL (140-440); RDW 13.4 % (11.5-14.5); WBC 8.83 X 10*3/uL (4.50-10.00)
[2020-05-12 09:48] LABS: African American GFR (CKD) 90.5 (60.0-200.0); Anion Gap 8.2 mmol/L (4.00-12.00); Calcium 9.4 mg/dL (8.7-10.3); Carbon Dioxide 21.8 mmol/L (21.6-31.8); Non-African American GFR(CKD) 78.1 (60.0-200.0); Potassium 4.5 mmol/L (3.5-5.5)
[2020-05-12] MEDS ORDERED: PRASUGREL 10 MG TAB PO SCH (10:05)
--- NOTE | 2020-05-13 13:48 | CDI ---
Documentation Clarification Form Date: 05/13/2020 01:45:00 PM From: Rachael Hoskins CCS Phone: If you have a question about this query, please contact Gilda Hollingsworth Commercial Insulator at [phone] between 8am and 5pm Admit Date: 05/11/2020 12:43:00 PM Patient Name: Jim Salcedo Visit Number: [id number] Discharge Date: 05/12/2020 11:45:00 AM ATTENTION: The Clinical Documentation Specialists (CDI) and [facility] Coding Staff appreciate your assistance in clarifying documentation. Please respond to the clarification below the line at the bottom and electronically sign. The CDI & [facility] Coding staff will review the response and follow-up if needed. Please note: Queries are made part of the Legal Health Record. If you have any questions, please contact the author of this message via ITS. Dr. Reuben Nicholson Conflicting documentation has been found in the medical record: PTCA, 05/11 Consult, 05/12 PN document NSTEMI H&P, DS document Chest Pain History/Risk Factors: CAD, HTN, CRISTINA, Obesity, Clinical Indicators: Elevated troponin, Unstable angina Labs: Troponin 0.064, 0.166, 0.247 Treatment: PTCA w/ DONNELL to left circumflex, Heparin IV Consult: Jazmin In your opinion, what is the most clinically appropriate diagnosis for this patient? Chest pain Unstable Angina-This is the correct diagnosis NSTEMI Other explanation of clinical findings Unable to determine (no explanation for clinical findings) MTDD
== END 2020-05-12 11:45 | disposition home or self-care (01) | DRG 247 ==
LOC: EC 17:41 → 6NMEDSUR 20:38 → OBSVTOIN 05-11 12:43
PROVIDERS: ADMIT Family Medicine; ATTEND Family Medicine
PROC: B2111ZZ Fluoroscopy of Multiple Coronary Arteries using Low Osmolar Contrast (ICD-10-PCS; 2020-05-11)
PROC: 027034Z Dilation of Coronary Artery, One Artery with Drug-eluting Intraluminal Device, Percutaneous Approach (ICD-10-PCS; principal; 2020-05-11 09:00)
PROC: 4A023N7 Measurement of Cardiac Sampling and Pressure, Left Heart, Percutaneous Approach (ICD-10-PCS; 2020-05-11 09:00)
DX: I25.110 Atherosclerotic heart disease of native coronary artery with unstable angina pectoris (principal); M19.90 Unspecified osteoarthritis, unspecified site; Z20.822 Contact with and (suspected) exposure to COVID-19; L71.9 Rosacea, unspecified; I86.8 Varicose veins of other specified sites; F90.9 Attention-deficit hyperactivity disorder, unspecified type; F17.210 Nicotine dependence, cigarettes, uncomplicated; F98.8 Other specified behavioral and emotional disorders with onset usually occurring in childhood and adolescence; G89.29 Other chronic pain; G47.33 Obstructive sleep apnea (adult) (pediatric); I10 Essential (primary) hypertension; E66.9 Obesity, unspecified; Z68.28 Body mass index [BMI] 28.0-28.9, adult; Z71.6 Tobacco abuse counseling; Z71.3 Dietary counseling and surveillance; Z79.899 Other long term (current) drug therapy; Z87.442 Personal history of urinary calculi; Z87.440 Personal history of urinary (tract) infections; Z96.641 Presence of right artificial hip joint; Z98.1 Arthrodesis status; Z98.890 Other specified postprocedural states; Z82.49 Family history of ischemic heart disease and other diseases of the circulatory system; Z88.0 Allergy status to penicillin; Z88.8 Allergy status to other drugs, medicaments and biological substances; Z91.048 Other nonmedicinal substance allergy status; Z80.9 Family history of malignant neoplasm, unspecified
CPT/HCPCS: 36415; 71046; 71275; 80048; 80053; 80061; 82550; 83721; 83735; 83880; 84484; 85025; 85347; 85379; 85610; 85730; 87635; 93005; 93306; 93458; 96365; 96366; 96376; 99291

== ENCOUNTER 2020-07-08 16:38 | Emergency (ER) | payer MEDICARE ==
[2020-07-08 17:00] VITALS: TEMP 99.4
[2020-07-08] MEDS ORDERED: SODIUM CHLORIDE 0.9% 1,000 ML IV STA (17:44)
[2020-07-08] MEDS ORDERED: KETOROLAC 15 MG/ML 1 ML VIAL IVP STA (17:44)
--- NOTE | 2020-07-08 17:47 | ED ---
General Adult HPI - General Chief complaint: Headache Stated complaint: Headache, Dental Issue Time Seen by Provider: 07/08/20 17:32 Source: patient, RN notes reviewed, old records reviewed Mode of arrival: ambulatory Limitations: no limitations - History of Present Illness Initial comments: 65-year-old male presented for evaluation of headache which as been ongoing for the past 3 weeks to 1 month, toothache after completing a recent round of antibiotics, and COUGH and fever and chills. He states that symptoms have been ongoing for approximately one month. He is scheduled to see his dentist regarding his toothache and has completed a course of antibiotics. His headache he believes may be coming from his teeth however it is predominantly right sided retro-orbital. He denies focal numbness or weakness. Additionally he's had some bilateral flank pain and burning sensation with no injury. He states that he is uncertain if this is related to kidney stones as he has had these previously. - Related Data Home Medications Medication Instructions Recorded Confirmed Dextroamphetamine/Amphetamine 20 mg PO DAILY 05/22/16 05/10/20 [Adderall] Cholecalciferol [Vitamin D3 (25 50 mcg PO DAILY 05/10/20 05/10/20 Mcg = 1000 Iu)] Priyanka Apple Cider Vinegar Gummies 2 tab PO DAILY 05/10/20 05/10/20 Tamsulosin [Flomax] 0.4 mg PO PC-SUPPER 05/10/20 05/10/20 Zinc 50 mg PO DAILY 05/10/20 05/10/20 Previous Rx's Medication Instructions Recorded Prasugrel [Effient] 10 mg PO DAILY #30 tab 05/11/20 Aspirin 81 mg PO DAILY #0 chew 05/12/20 Atorvastatin [Lipitor] 80 mg PO HS #30 tab 05/12/20 Metoprolol Tartrate [Lopressor] 25 mg PO BID #60 tab 05/12/20 Nitroglycerin Sl Tabs [Nitrostat] 0.4 mg SUBLINGUAL Q5M PRN #50 tab 05/12/20 lisinopriL [Zestril] 5 mg PO DAILY #90 tab 05/12/20 Clindamycin [Cleocin] 450 mg PO TID 10 Days #30 cap 07/08/20 Allergies Allergy/AdvReac Type Severity Reaction Status Date / Time duloxetine [From Cymbalta] Allergy Severe throat Verified 07/08/20 16:57 swelling, could not swallow prochlorperazine Allergy Severe "symptoms Verified 07/08/20 16:57 [From Compazine] similar to a stroke" acyclovir Allergy Swelling Verified 07/08/20 16:57 Penicillins Allergy Swelling Verified 07/08/20 16:57 poison dylon extract Allergy Unknown Verified 07/08/20 16:57 poison oak extract Allergy Unknown Verified 07/08/20 16:57 poison sumac extract Allergy Unknown Verified 07/08/20 16:57 pregabalin [From Lyrica] AdvReac can't Verified 07/08/20 16:57 walk, muscle and joint pain Review of Systems ROS Statement: Those systems with pertinent positive or pertinent negative responses have been documented in the HPI. ROS Other: All systems not noted in ROS Statement are negative. 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 History of Any Multi-Drug Resistant Organisms: None Reported Past Surgical History: Joint Replacement, Orthopedic Surgery Additional Past Surgical History / Comment(s): cervical fusion, right hip replacement, septoplasty, arthroscopy rt knee Past Anesthesia/Blood Transfusion Reactions: No Reported Reaction Additional Past Anesthesia/Blood Transfusion Reaction / Comment(s): states no diff intubation Past Psychological History: ADD/ADHD Smoking Status: Current every day smoker Past Alcohol Use History: None Reported Past Drug Use History: None Reported - Past Family History Mother Family Medical History: Cancer, Deep Vein Thrombosis (DVT) General Exam Limitations: no limitations General appearance: alert, in no apparent distress Head exam: Present: atraumatic, normocephalic Eye exam: Present: normal appearance, PERRL ENT exam: Present: mucous membranes dry Neck exam: Present: normal inspection. Absent: tenderness, meningismus Respiratory exam: Present: normal lung sounds bilaterally. Absent: respiratory distress Cardiovascular Exam: Present: regular rate, normal rhythm GI/Abdominal exam: Present: soft. Absent: distended, tenderness, guarding Extremities exam: Present: normal inspection, normal capillary refill. Absent: pedal edema Neurological exam: Present: alert, oriented X3, CN II-XII intact. Absent: motor sensory deficit Psychiatric exam: Present: normal affect, normal mood Skin exam: Present: warm, dry, intact. Absent: cyanosis, diaphoretic Course Vital Signs 07/08/20 16:57 Temperature 99.4 F Pulse Rate 86 Respiratory 16 Rate Blood Pressure 116/72 O2 Sat by Pulse 99 Oximetry EKG Findings - EKG Comments: EKG Findings:: EKG: Normal sinus rhythm with sinus arrhythmia, no ST segment elevation, rate of 76, NJ interval 154, QRS duration 82, QTC 427 Medical Decision Making - Medical Decision Making 65-year-old male with multiple complaints, there was concern for rotavirus, coronavirus is negative. Further workup is initiated, head CT performed shows paranasal sinusitis, no acute findings intracranially. Chest x-ray is negative for acute cardiopulmonary disease. He has a mild leukocytosis. Otherwise laboratory testing is unremarkable. Given the sinusitis and dental complaint he is started on Augmentin. He will follow up with his dentist and his primary care physician. - Lab Data Result diagrams: 07/08/20 17:55 07/08/20 17:55 Lab Results 07/08/20 07/08/20 07/08/20 Range/Units 17:04 17:55 17:55 WBC 12.9 H (3.8-10.6) k/uL RBC 4.08 L (4.30-5.90) m/uL Hgb 13.1 (13.0-17.5) gm/dL Hct 37.8 L (39.0-53.0) % MCV 92.7 (80.0-100.0) fL MCH 32.3 (25.0-35.0) pg MCHC 34.8 (31.0-37.0) g/dL RDW 12.3 (11.5-15.5) % Plt Count 359 (150-450) k/uL MPV 7.2 Neutrophils % 65 % Lymphocytes % 22 % Monocytes % 8 % Eosinophils % 2 % Basophils % 1 % Neutrophils # 8.3 H (1.3-7.7) k/uL Lymphocytes # 2.8 (1.0-4.8) k/uL Monocytes # 1.0 (0-1.0) k/uL Eosinophils # 0.3 (0-0.7) k/uL Basophils # 0.1 (0-0.2) k/uL Sodium 134 L (137-145) mmol/L Potassium 5.3 H (3.5-5.1) mmol/L Chloride 101 (98-107) mmol/L Carbon Dioxide 23 (22-30) mmol/L Anion Gap 10 mmol/L BUN 15 (9-20) mg/dL Creatinine 1.24 (0.66-1.25) mg/dL Est GFR (CKD-EPI)AfAm 70 (>60 ml/min/1.73 sqM) Est GFR (CKD-EPI)NonAf 61 (>60 ml/min/1.73 sqM) Glucose 109 H (74-99) mg/dL Calcium 10.4 H (8.4-10.2) mg/dL Magnesium 1.9 (1.6-2.3) mg/dL Total Bilirubin 0.6 (0.2-1.3) mg/dL AST 24 (17-59) U/L ALT 19 (4-49) U/L Alkaline Phosphatase 106 (38-126) U/L Troponin I (0.000-0.034) ng/mL Total Protein 7.1 (6.3-8.2) g/dL Albumin 4.3 (3.5-5.0) g/dL Coronavirus (PCR) Not Detected (Not Detectd) 07/08/20 Range/Units 17:55 WBC (3.8-10.6) k/uL RBC (4.30-5.90) m/uL Hgb (13.0-17.5) gm/dL Hct (39.0-53.0) % MCV (80.0-100.0) fL MCH (25.0-35.0) pg MCHC (31.0-37.0) g/dL RDW (11.5-15.5) % Plt Count (150-450) k/uL MPV Neutrophils % % Lymphocytes % % Monocytes % % Eosinophils % % Basophils % % Neutrophils # (1.3-7.7) k/uL Lymphocytes # (1.0-4.8) k/uL Monocytes # (0-1.0) k/uL Eosinophils # (0-0.7) k/uL Basophils # (0-0.2) k/uL Sodium (137-145) mmol/L Potassium (3.5-5.1) mmol/L Chloride (98-107) mmol/L Carbon Dioxide (22-30) mmol/L Anion Gap mmol/L BUN (9-20) mg/dL Creatinine (0.66-1.25) mg/dL Est GFR (CKD-EPI)AfAm (>60 ml/min/1.73 sqM) Est GFR (CKD-EPI)NonAf (>60 ml/min/1.73 sqM) Glucose (74-99) mg/dL Calcium (8.4-10.2) mg/dL Magnesium (1.6-2.3) mg/dL Total Bilirubin (0.2-1.3) mg/dL AST (17-59) U/L ALT (4-49) U/L Alkaline Phosphatase (38-126) U/L Troponin I <0.012 (0.000-0.034) ng/mL Total Protein (6.3-8.2) g/dL Albumin (3.5-5.0) g/dL Coronavirus (PCR) (Not Detectd) Disposition Clinical Impression: Headache, Toothache Disposition: HOME SELF-CARE Condition: Good Instructions (If sedation given, give patient instructions): Acute Headache (ED), Sinusitis (ED) Additional Instructions: Please follow-up both with her dentist and her primary care physician regarding ongoing symptoms. Please return with worsening or changing symptoms. Prescriptions: Clindamycin [Cleocin] 450 mg PO TID 10 Days #30 cap Is patient prescribed a controlled substance at d/c from ED?: No Referrals: Reuben Nicholson MD [Primary Care Provider] - 1-2 days Time of Disposition: 19:39
[2020-07-08 18:11] LABS: Basophils # (A) 0.1 k/uL (0-0.2); Basophils % (A) 1 %; Eosinophils # (A) 0.3 k/uL (0-0.7); Eosinophils % (A) 2 %; HCT 37.8 % (39.0-53.0); HGB 13.1 gm/dL (13.0-17.5); Lymphocytes # (A) 2.8 k/uL (1.0-4.8); Lymphocytes % (A) 22 %; MCH 32.3 pg (25.0-35.0); MCHC 34.8 g/dL (31.0-37.0); MCV 92.7 fL (80.0-100.0); Mean Platelet Volume 7.2; Monocytes % (A) 8 %; Neutrophils # (A) 8.3 k/uL (1.3-7.7); Neutrophils % (A) 65 %; Platelet Count 359 k/uL (150-450); RBC 4.08 m/uL (4.30-5.90); RDW 12.3 % (11.5-15.5); WBC 12.9 k/uL (3.8-10.6)
--- NOTE | 2020-07-08 18:34 | XR ---
EXAMINATION TYPE: XR chest 1V portable DATE OF EXAM: 07/08/2020 COMPARISON: 05/10/2020. HISTORY: Heartburn. TECHNIQUE: Single frontal view of the chest is obtained. FINDINGS: There is no focal air space opacity, pleural effusion, or pneumothorax seen. The cardiac silhouette size is within normal limits. The osseous structures are intact. IMPRESSION: No acute process.
[2020-07-08 18:41] LABS: Albumin 4.3 g/dL (3.5-5.0); Calcium 10.4 mg/dL (8.4-10.2); Magnesium 1.9 mg/dL (1.6-2.3); Potassium 5.3 mmol/L (3.5-5.1); Total Bilirubin 0.6 mg/dL (0.2-1.3); Total Protein 7.1 g/dL (6.3-8.2)
--- NOTE | 2020-07-08 19:02 | CT ---
EXAM: CT brain wo con CLINICAL HISTORY: Headache. COMPARISON: None TECHNIQUE: Contiguous axial noncontrast images of the brain were obtained. Coronal and sagittal refor mats were generated and reviewed. Automated dose control was used for this exam. FINDINGS: There is no evidence for intracranial hemorrhage, mass effect or midline shift. The white matter is g rossly preserved. Ventricular size and configuration is within normal limits for degree of parenchymal volume. The paranasal sinuses demonstrate complete opacification of the right maxillary sinus and moderate of the ethmoid sinus. The mastoid air cells are clear. No evidence for calvarial fracture. IMPRESSION: No acute intracranial abnormality. Paranasal sinus disease.
[2020-07-08 20:00] VITALS: BP 136/82; PULSE 80; RESP 18
== END 2020-07-08 20:00 | disposition home or self-care (01) ==
LOC: EC 16:38
DX: R51.9 Headache, unspecified (principal); K08.89 Other specified disorders of teeth and supporting structures; E11.9 Type 2 diabetes mellitus without complications; G47.30 Sleep apnea, unspecified; M19.90 Unspecified osteoarthritis, unspecified site; F90.9 Attention-deficit hyperactivity disorder, unspecified type; F17.200 Nicotine dependence, unspecified, uncomplicated; Z79.899 Other long term (current) drug therapy; Z88.8 Allergy status to other drugs, medicaments and biological substances; Z88.0 Allergy status to penicillin; Z91.048 Other nonmedicinal substance allergy status; Z99.89 Dependence on other enabling machines and devices; Z98.1 Arthrodesis status; Z96.641 Presence of right artificial hip joint
CPT/HCPCS: 93005; 80053; 83735; 84484; 85025; 87635; 71045; 70450; 99285; 96374; 96361; J1885

== ENCOUNTER 2020-07-31 13:14 | Observation (INO) | payer OTHER, MEDICARE ==
--- NOTE | 2020-07-31 14:08 | ED ---
Chest Pain HPI - General Chief Complaint: Chest Pain Stated Complaint: chest pain, Covid symptoms Time Seen by Provider: 07/31/20 13:30 Source: patient, RN notes reviewed, old records reviewed Mode of arrival: ambulatory Limitations: no limitations - History of Present Illness Initial Comments: 7 this is a 65-year-old male DF for evaluation. Patient coming in for evaluation coronavirus. Patient's about 6 days of severe weakness not feeling well lightheaded dizzy occasional chest pain shortness of breath decreased appetite. Decreased activity level. Patient again does feel like he has coronavirus MD Complaint: chest pain -: days(s) Onset: during exertion Pain Location: substernal Pain Radiation: none Severity: moderate Severity scale (1-10): 5 Quality: heaviness Consistency: constant Improves With: nothing Worsens With: nothing Anginal Symptoms: dyspnea Other Symptoms: cough Treatments Prior to Arrival: none - Related Data Home Medications Medication Instructions Recorded Confirmed Dextroamphetamine/Amphetamine 20 mg PO DAILY 05/22/16 07/31/20 [Adderall] Clopidogrel [Plavix] 75 mg PO DAILY 07/31/20 07/31/20 Previous Rx's Medication Instructions Recorded Aspirin 81 mg PO DAILY #0 chew 05/12/20 Metoprolol Tartrate [Lopressor] 25 mg PO BID #60 tab 05/12/20 Nitroglycerin Sl Tabs [Nitrostat] 0.4 mg SUBLINGUAL Q5M PRN #50 tab 05/12/20 lisinopriL [Zestril] 5 mg PO DAILY #90 tab 05/12/20 Allergies Allergy/AdvReac Type Severity Reaction Status Date / Time duloxetine [From Cymbalta] Allergy Severe throat Verified 07/31/20 13:27 swelling, could not swallow prochlorperazine Allergy Severe "symptoms Verified 07/31/20 13:27 [From Compazine] similar to a stroke" acyclovir Allergy Swelling Verified 07/31/20 13:27 levofloxacin [From Levaquin] Allergy Swelling Verified 07/31/20 15:20 Penicillins Allergy Swelling Verified 07/31/20 13:27 poison dylon extract Allergy Unknown Verified 07/31/20 13:27 poison oak extract Allergy Unknown Verified 07/31/20 13:27 poison sumac extract Allergy Unknown Verified 07/31/20 13:27 pregabalin [From Lyrica] AdvReac can't Verified 07/31/20 13:27 walk, muscle and joint pain Review of Systems ROS Statement: Those systems with pertinent positive or pertinent negative responses have been documented in the HPI. ROS Other: All systems not noted in ROS Statement are negative. 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 History of Any Multi-Drug Resistant Organisms: None Reported Past Surgical History: Heart Catheterization With Stent, Joint Replacement, Orthopedic Surgery Additional Past Surgical History / Comment(s): cervical fusion, right hip replacement, septoplasty, arthroscopy rt knee Past Anesthesia/Blood Transfusion Reactions: No Reported Reaction Additional Past Anesthesia/Blood Transfusion Reaction / Comment(s): states no diff intubation Past Psychological History: ADD/ADHD Smoking Status: Current every day smoker Past Alcohol Use History: None Reported Past Drug Use History: None Reported - Past Family History Mother Family Medical History: Cancer, Deep Vein Thrombosis (DVT) General Exam Limitations: no limitations General appearance: alert, in no apparent distress, anxious Head exam: Present: atraumatic, normocephalic, normal inspection Eye exam: Present: normal appearance, PERRL, EOMI. Absent: scleral icterus, conjunctival injection, periorbital swelling ENT exam: Present: normal exam, mucous membranes moist Neck exam: Present: normal inspection. Absent: tenderness, meningismus, lymphadenopathy Respiratory exam: Present: normal lung sounds bilaterally. Absent: respiratory distress, wheezes, rales, rhonchi, stridor Cardiovascular Exam: Present: regular rate, normal rhythm, normal heart sounds. Absent: systolic murmur, diastolic murmur, rubs, gallop, clicks GI/Abdominal exam: Present: soft, normal bowel sounds. Absent: distended, tenderness, guarding, rebound, rigid Extremities exam: Present: normal inspection, full ROM, normal capillary refill. Absent: tenderness, pedal edema, joint swelling, calf tenderness Back exam: Present: normal inspection Neurological exam: Present: alert, oriented X3, CN II-XII intact Psychiatric exam: Present: normal affect, normal mood Skin exam: Present: warm, dry, intact, normal color. Absent: rash Course Vital Signs 07/31/20 07/31/20 13:25 15:01 Temperature 97.4 F L Pulse Rate 91 82 Respiratory 22 16 Rate Blood Pressure 115/69 96/80 O2 Sat by Pulse 100 96 Oximetry - Reevaluation(s) Reevaluation #1: 07/31/20 16:29 Medical records reviewed Reevaluation #2: 07/31/20 16:29 Patient still feels weak lightheaded dizzy, occasional chest pain - Consultations Consultation #1: Spoke with [facility]H who agree to admit the patient Chest Pain MDM - MDM 65 male DF for evaluation patient has chest pain chest pain, okay with positive for coronavirus. Patient be admitted for evaluation, cardiac monitoring and treatment of coronavirus symptomatically Disposition Clinical Impression: Chest pain, Coronavirus infection Disposition: ADMITTED IP TO THIS HOSP Condition: Fair Is patient prescribed a controlled substance at d/c from ED?: No Referrals: Reuben Nicholson MD [Primary Care Provider] - 1-2 days
[2020-07-31] MEDS ORDERED: ACETAMINOPHEN TAB 500 MG TAB PO STA (14:12)
[2020-07-31] MEDS ORDERED: DEXAMETHASONE SOD PHOSPHATE 10 MG/ML 1 ML VIAL IV STA (14:12)
[2020-07-31] MEDS ORDERED: KETOROLAC 15 MG/ML 1 ML VIAL IVP STA (14:12)
[2020-07-31] MEDS ORDERED: SODIUM CHLORIDE 0.9% 1,000 ML IV STA (14:12)
[2020-07-31 14:27] LABS: Basophils # (A) 0.1 k/uL (0-0.2); Basophils % (A) 1 %; Eosinophils % (A) 0 %; HCT 38.8 % (39.0-53.0); HGB 13.5 gm/dL (13.0-17.5); Lymphocytes # (A) 1.4 k/uL (1.0-4.8); Lymphocytes % (A) 33 %; MCH 31.8 pg (25.0-35.0); MCHC 34.8 g/dL (31.0-37.0); MCV 91.4 fL (80.0-100.0); Mean Platelet Volume 7.6; Monocytes # (A) 0.3 k/uL (0-1.0); Monocytes % (A) 8 %; Neutrophils # (A) 2.3 k/uL (1.3-7.7); Neutrophils % (A) 55 %; Platelet Count 226 k/uL (150-450); RBC 4.25 m/uL (4.30-5.90); RDW 12.5 % (11.5-15.5); WBC 4.1 k/uL (3.8-10.6)
[2020-07-31 14:39] LABS: Albumin 3.9 g/dL (3.5-5.0); C Reactive Protein 1.8 mg/dL (<1.0); Calcium 9.4 mg/dL (8.4-10.2); Magnesium 1.7 mg/dL (1.6-2.3); Potassium 4.8 mmol/L (3.5-5.1); Total Bilirubin 0.3 mg/dL (0.2-1.3); Total Protein 6.7 g/dL (6.3-8.2)
[2020-07-31 14:41] LABS: INR 0.9 (<1.2); Partial Thromboplastin Time 22.7 sec (22.0-30.0); Prothrombin Time 9.5 sec (9.0-12.0)
--- NOTE | 2020-07-31 14:58 | XR ---
EXAMINATION TYPE: XR chest 1V portable DATE OF EXAM: 07/31/2020 COMPARISON: 07/08/2020 HISTORY: Headache TECHNIQUE: Single view FINDINGS: Heart and mediastinum are normal. Lungs are clear. Diaphragm is normal. Bony thorax is inta ct. There are chest leads. IMPRESSION: Normal chest. No change.
[2020-07-31] MEDS ORDERED: NITROGLYCERIN SL TABS 0.4 MG TAB SUBLINGUAL PRN (16:18)
[2020-07-31] MEDS ORDERED: ASPIRIN 81 MG PO STA (16:18)
[2020-07-31] MEDS ORDERED: MORPHINE SULFATE 4 MG/ML SYRINGE IV PRN (16:18)
--- NOTE | 2020-07-31 17:57 | CT ---
EXAMINATION TYPE: CT angio chest DATE OF EXAM: 07/31/2020 COMPARISON: 05/10/2020 HISTORY: Chest pain, +covid. CT DLP: 385.4 mGycm Automated exposure control for dose reduction was used. CONTRAST: Performed with IV Contrast, patient injected with 62ml mL of Isovue 370. Images obtained from the thoracic inlet to the diaphragm with IV contrast. There are 3-D post process ed images. There is no mediastinal adenopathy. Thoracic aorta is atheromatous. There is no aneurysm or dissectio n. There are right bronchial lymph nodes that measure up to 1.2 cm. I see no evidence of filling defect in the pulmonary arteries. There is some groundglass interstitial infiltrate in the posterior right lower lobe. There is mild knapp bsegmental atelectasis right lung base. There is no pleural effusion. There is no pericardial effusio n. There is degenerative spurring in the thoracic spine. There is no compression fracture. Sternum is in tact. IMPRESSION: No evidence of pulmonary embolism. There is some interstitial and airspace infiltrate right lower lob e which is new compared to old exam. Normal heart. There is right bronchial adenopathy which is new c ompared to old exam and consistent with inflammatory disease.
[2020-07-31] MEDS: SODIUM CHLORIDE 0.9% 1,000 ML IV SCH (20:50)
[2020-07-31 20:59] LABS: Glucose,Whole Blood 208 mg/dL (75-99)
[2020-08-01] MEDS: SODIUM CHLORIDE 0.9% 1,000 ML IV SCH (04:45)
[2020-08-01 07:17] LABS: Glucose,Whole Blood 159 mg/dL (75-99)
--- NOTE | 2020-08-01 08:57 | P.CRDCN ---
History of Present Illness Consult date: 08/01/20 History of present illness: This is a 65-year-old gentleman with history of previous CVA and also history of previous chest pains. He had a cardiac catheterization in 2018 which did not reveal any obstructive disease. He had a stress echocardiogram in 2019 which was negative. This patient essentially came to the hospital with complaints of not feeling well, lightheaded and short of breath. Apparently there is some intermittent chest pains. His EKGs did not reveal any acute changes. Cardiac enzymes are negative. His chest x-ray and CT findings are consistent with COVID infection and pneumonia. I spoke with the nurse today. Patient has been doing well without any symptoms of chest pain. Given his past medical history and negative enzymes and EKGs, but not dealing with an acute coronary syndrome. Patient was not personally examined. I'll recommend continued treatment for Covid pneumonia. 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 History of Any Multi-Drug Resistant Organisms: None Reported Past Surgical History: Heart Catheterization With Stent, Joint Replacement, Orthopedic Surgery Additional Past Surgical History / Comment(s): cervical fusion, right hip replacement, septoplasty, arthroscopy rt knee Past Anesthesia/Blood Transfusion Reactions: No Reported Reaction Additional Past Anesthesia/Blood Transfusion Reaction / Comment(s): states no diff intubation Date of Last Stent Placement:: 05/10/2020 Past Psychological History: ADD/ADHD Smoking Status: Current some day smoker Past Alcohol Use History: None Reported Additional Past Alcohol Use History / Comment(s): smokes 1/2ppd Past Drug Use History: None Reported - Past Family History Mother Family Medical History: Cancer, Deep Vein Thrombosis (DVT) Medications and Allergies Home Medications Medication Instructions Recorded Confirmed Type Dextroamphetamine/Amphetamine 20 mg PO DAILY 05/22/16 07/31/20 History [Adderall] Aspirin 81 mg PO DAILY #0 chew 05/12/20 07/31/20 Rx Metoprolol Tartrate [Lopressor] 25 mg PO BID #60 tab 05/12/20 07/31/20 Rx Nitroglycerin Sl Tabs [Nitrostat] 0.4 mg SUBLINGUAL Q5M PRN #50 tab 05/12/20 07/31/20 Rx lisinopriL [Zestril] 5 mg PO DAILY #90 tab 05/12/20 07/31/20 Rx Clopidogrel [Plavix] 75 mg PO DAILY 07/31/20 07/31/20 History Allergies Allergy/AdvReac Type Severity Reaction Status Date / Time duloxetine [From Cymbalta] Allergy Severe throat Verified 07/31/20 13:27 swelling, could not swallow prochlorperazine Allergy Severe "symptoms Verified 07/31/20 13:27 [From Compazine] similar to a stroke" acyclovir Allergy Swelling Verified 07/31/20 13:27 levofloxacin [From Levaquin] Allergy Swelling Verified 07/31/20 15:20 Penicillins Allergy Swelling Verified 07/31/20 13:27 poison dylon extract Allergy Unknown Verified 07/31/20 13:27 poison oak extract Allergy Unknown Verified 07/31/20 13:27 poison sumac extract Allergy Unknown Verified 07/31/20 13:27 pregabalin [From Lyrica] AdvReac can't Verified 07/31/20 13:27 walk, muscle and joint pain Physical Exam Vitals: Vital Signs Temp Pulse Pulse Resp BP BP Pulse Ox 08/01/20 07:15 97.7 F 83 16 115/70 97 08/01/20 02:00 60 17 130/75 98 07/31/20 20:00 98.1 F 58 L 18 120/69 96 07/31/20 18:16 97.4 F L 61 19 95/56 96 07/31/20 16:32 98.1 F 58 L 18 120/69 96 07/31/20 15:01 82 16 96/80 96 07/31/20 13:25 97.4 F L 91 22 115/69 100 Intake and Output 07/31/20 08/01/20 08/01/20 22:59 06:59 14:59 Intake Total 400 1200 Balance 400 1200 Intake: Intake, IV Titration 1200 Amount Sodium Chloride 0.9% 1, 1200 000 ml @ 100 mls/hr IV . Q10H [facility] Rx#:[id number] Oral 400 Other: Voiding Method Toilet Urinal # Voids 3 3 Weight 92.986 kg Patient is not personally examined him as per the nurses. Patient is critically stable. Physical exam by primary care physician is reviewed Results 07/31/20 14:20 07/31/20 14:20 Cardiac Enzymes 07/31/20 07/31/20 07/31/20 Range/Units 14:20 14:20 18:03 AST 32 (17-59) U/L Lactate Dehydrogenase 536 (313-618) U/L Troponin I <0.012 <0.012 (0.000-0.034) ng/mL 07/31/20 Range/Units 20:25 AST (17-59) U/L Lactate Dehydrogenase (313-618) U/L Troponin I <0.012 (0.000-0.034) ng/mL Coagulation 07/31/20 Range/Units 14:20 PT 9.5 (9.0-12.0) sec APTT 22.7 (22.0-30.0) sec CBC 07/31/20 Range/Units 14:20 WBC 4.1 (3.8-10.6) k/uL RBC 4.25 L (4.30-5.90) m/uL Hgb 13.5 (13.0-17.5) gm/dL Hct 38.8 L (39.0-53.0) % Plt Count 226 (150-450) k/uL Comprehensive Metabolic Panel 07/31/20 Range/Units 14:20 Sodium 131 L (137-145) mmol/L Potassium 4.8 (3.5-5.1) mmol/L Chloride 100 (98-107) mmol/L Carbon Dioxide 23 (22-30) mmol/L BUN 22 H (9-20) mg/dL Creatinine 1.54 H (0.66-1.25) mg/dL Glucose 120 H (74-99) mg/dL Calcium 9.4 (8.4-10.2) mg/dL AST 32 (17-59) U/L ALT 20 (4-49) U/L Alkaline Phosphatase 85 (38-126) U/L Total Protein 6.7 (6.3-8.2) g/dL Albumin 3.9 (3.5-5.0) g/dL Current Medications Generic Name Dose Route Start Last Admin Trade Name Freq PRN Reason Stop Dose Admin Aspirin 325 mg 08/01/20 09:00 Aspirin 325 Mg Tab PO DAILY [facility] Sodium Chloride 1,000 mls @ 100 mls/hr 07/31/20 16:30 08/01/20 04:45 Saline 0.9% IV 100 mls/hr .Q10H [facility] Administration Morphine Sulfate 4 mg 07/31/20 16:18 Morphine Sulfate 4 Mg/Ml Syringe IV Q4HR PRN Chest Pain Nitroglycerin 0.4 mg 07/31/20 16:18 Nitroglycerin Sl Tabs 0.4 Mg Tab SUBLINGUAL Q5M PRN Chest Pain Intake and Output 07/31/20 08/01/20 08/01/20 22:59 06:59 14:59 Intake Total 400 1200 Balance 400 1200 Intake: Intake, IV Titration 1200 Amount Sodium Chloride 0.9% 1, 1200 000 ml @ 100 mls/hr IV . Q10H [facility] Rx#:[id number] Oral 400 Other: Voiding Method Toilet Urinal # Voids 3 3 Weight 92.986 kg 07/31/20 14:20 07/31/20 14:20 EKG Interpretations (text) Sinus rhythm Assessment and Plan (1) Chest pain Current Visit: Yes Status: Acute Code(s): R07.9 - CHEST PAIN, UNSPECIFIED SNOMED Code(s): 32089107 (2) Coronavirus infection Current Visit: Yes Status: Acute Code(s): B34.2 - CORONAVIRUS INFECTION, UNSPECIFIED SNOMED Code(s): 400988371 Plan: This patient doesn't have any history of coronary artery disease. His cardiac enzymes and EKGs are normal. Patient has Covid pneumonia. Not having any active chest pains. Continue treatment for pneumonia. We'll see as needed
[2020-08-01] MEDS: ASPIRIN 325 MG TAB PO SCH (09:06)
[2020-08-01 09:49] LABS: Chol/HDL Ratio 4.68
--- NOTE | 2020-08-01 09:53 | P.CRDCN ---
History of Present Illness Consult date: 08/01/20 History of present illness: This is a 65-year-old gentleman with history of previous coronary artery disease and stent placement of the distal circumflex and known mild disease in the LAD who came to the emergency room with complaints of not feeling well for the last 6 days, dizziness and intermittent mild chest discomfort. He suspected that he may have COVID infection. His EKGs did not reveal any acute changes. His cardiac enzymes are negative. Is not having active chest pain at this time. His symptoms are mostly related to his code infection and pneumonia. Chest x- ray and CAT scan findings are consistent with that. Most of the information is gathered from the chart and nurse's. Continue current medical treatment. No cardiac intervention needed at this time. Will follow when necessary. Follow- up with the Dr. 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 History of Any Multi-Drug Resistant Organisms: None Reported Past Surgical History: Heart Catheterization With Stent, Joint Replacement, Orthopedic Surgery Additional Past Surgical History / Comment(s): cervical fusion, right hip replacement, septoplasty, arthroscopy rt knee Past Anesthesia/Blood Transfusion Reactions: No Reported Reaction Additional Past Anesthesia/Blood Transfusion Reaction / Comment(s): states no d iff intubation Date of Last Stent Placement:: 05/10/2020 Past Psychological History: ADD/ADHD Smoking Status: Current some day smoker Past Alcohol Use History: None Reported Additional Past Alcohol Use History / Comment(s): smokes 1/2ppd Past Drug Use History: None Reported - Past Family History Mother Family Medical History: Cancer, Deep Vein Thrombosis (DVT) Medications and Allergies Home Medications Medication Instructions Recorded Confirmed Type Dextroamphetamine/Amphetamine 20 mg PO DAILY 05/22/16 07/31/20 History [Adderall] Aspirin 81 mg PO DAILY #0 chew 05/12/20 07/31/20 Rx Metoprolol Tartrate [Lopressor] 25 mg PO BID #60 tab 05/12/20 07/31/20 Rx Nitroglycerin Sl Tabs [Nitrostat] 0.4 mg SUBLINGUAL Q5M PRN #50 tab 05/12/20 07/31/20 Rx lisinopriL [Zestril] 5 mg PO DAILY #90 tab 05/12/20 07/31/20 Rx Clopidogrel [Plavix] 75 mg PO DAILY 07/31/20 07/31/20 History Allergies Allergy/AdvReac Type Severity Reaction Status Date / Time duloxetine [From Cymbalta] Allergy Severe throat Verified 07/31/20 13:27 swelling, could not swallow prochlorperazine Allergy Severe "symptoms Verified 07/31/20 13:27 [From Compazine] similar to a stroke" acyclovir Allergy Swelling Verified 07/31/20 13:27 levofloxacin [From Levaquin] Allergy Swelling Verified 07/31/20 15:20 Penicillins Allergy Swelling Verified 07/31/20 13:27 poison dylon extract Allergy Unknown Verified 07/31/20 13:27 poison oak extract Allergy Unknown Verified 07/31/20 13:27 poison sumac extract Allergy Unknown Verified 07/31/20 13:27 pregabalin [From Lyrica] AdvReac can't Verified 07/31/20 13:27 walk, muscle and joint pain Physical Exam Vitals: Vital Signs Temp Pulse Pulse Resp BP BP Pulse Ox 08/01/20 07:15 97.7 F 83 16 115/70 97 08/01/20 02:00 60 17 130/75 98 07/31/20 20:00 98.1 F 58 L 18 120/69 96 07/31/20 18:16 97.4 F L 61 19 95/56 96 07/31/20 16:32 98.1 F 58 L 18 120/69 96 07/31/20 15:01 82 16 96/80 96 07/31/20 13:25 97.4 F L 91 22 115/69 100 Intake and Output 07/31/20 08/01/20 08/01/20 22:59 06:59 14:59 Intake Total 400 1200 Balance 400 1200 Intake: Intake, IV Titration 1200 Amount Sodium Chloride 0.9% 1, 1200 000 ml @ 100 mls/hr IV . Q10H [facility] Rx#:[id number] Oral 400 Other: Voiding Method Toilet Urinal # Voids 3 3 Weight 92.986 kg Patient is not physical examination. Findings from primary care physician's notes and emergency room physicians note reviewed. Discussed with nurse Results 07/31/20 14:20 07/31/20 14:20 Cardiac Enzymes 07/31/20 07/31/20 07/31/20 Range/Units 14:20 14:20 18:03 AST 32 (17-59) U/L Lactate Dehydrogenase 536 (313-618) U/L Troponin I <0.012 <0.012 (0.000-0.034) ng/mL 07/31/20 Range/Units 20:25 AST (17-59) U/L Lactate Dehydrogenase (313-618) U/L Troponin I <0.012 (0.000-0.034) ng/mL Coagulation 07/31/20 Range/Units 14:20 PT 9.5 (9.0-12.0) sec APTT 22.7 (22.0-30.0) sec Lipids 08/01/20 Range/Units 04:40 Triglycerides 85.0 (0.0-149.0) mg/dL Cholesterol 117 (0-200) mg/dL HDL Cholesterol 25.0 L (40.0-60.0) mg/dL Cholesterol/HDL Ratio 4.68 CBC 07/31/20 Range/Units 14:20 WBC 4.1 (3.8-10.6) k/uL RBC 4.25 L (4.30-5.90) m/uL Hgb 13.5 (13.0-17.5) gm/dL Hct 38.8 L (39.0-53.0) % Plt Count 226 (150-450) k/uL Comprehensive Metabolic Panel 07/31/20 Range/Units 14:20 Sodium 131 L (137-145) mmol/L Potassium 4.8 (3.5-5.1) mmol/L Chloride 100 (98-107) mmol/L Carbon Dioxide 23 (22-30) mmol/L BUN 22 H (9-20) mg/dL Creatinine 1.54 H (0.66-1.25) mg/dL Glucose 120 H (74-99) mg/dL Calcium 9.4 (8.4-10.2) mg/dL AST 32 (17-59) U/L ALT 20 (4-49) U/L Alkaline Phosphatase 85 (38-126) U/L Total Protein 6.7 (6.3-8.2) g/dL Albumin 3.9 (3.5-5.0) g/dL Current Medications Generic Name Dose Route Start Last Admin Trade Name Freq PRN Reason Stop Dose Admin Aspirin 325 mg 08/01/20 09:00 08/01/20 09:06 Aspirin 325 Mg Tab PO 325 mg DAILY [facility] Administration Sodium Chloride 1,000 mls @ 100 mls/hr 07/31/20 16:30 08/01/20 04:45 Saline 0.9% IV 100 mls/hr .Q10H [facility] Administration Morphine Sulfate 4 mg 07/31/20 16:18 Morphine Sulfate 4 Mg/Ml Syringe IV Q4HR PRN Chest Pain Nitroglycerin 0.4 mg 07/31/20 16:18 Nitroglycerin Sl Tabs 0.4 Mg Tab SUBLINGUAL Q5M PRN Chest Pain Intake and Output 07/31/20 08/01/20 08/01/20 22:59 06:59 14:59 Intake Total 400 1200 Balance 400 1200 Intake: Intake, IV Titration 1200 Amount Sodium Chloride 0.9% 1, 1200 000 ml @ 100 mls/hr IV . Q10H [facility] Rx#:[id number] Oral 400 Other: Voiding Method Toilet Urinal # Voids 3 3 Weight 92.986 kg 07/31/20 14:20 07/31/20 14:20 EKG Interpretations (text) Sinus rhythm Assessment and Plan (1) Chest pain Current Visit: Yes Status: Acute Code(s): R07.9 - CHEST PAIN, UNSPECIFIED SNOMED Code(s): 59460671 (2) Coronavirus infection Current Visit: Yes Status: Acute Code(s): B34.2 - CORONAVIRUS INFECTION, UNSPECIFIED SNOMED Code(s): 267348082 (3) CAD (coronary artery disease) Current Visit: Yes Status: Acute Code(s): I25.10 - ATHSCL HEART DISEASE OF [place] CORONARY ARTERY W/O ANG PCTRS SNOMED Code(s): 48312603 Plan: No evidence of an acute coronary syndrome at this time. Continue with current management. We'll follow as needed
[2020-08-01 12:06] LABS: Glucose,Whole Blood 242 mg/dL (75-99)
--- NOTE | 2020-08-01 13:26 | P.CNPUL ---
History of Present Illness Consult date: 08/01/20 Requesting physician: Dante Eng Reason for consult: dyspnea, abnormal CXR/CT Chief complaint: Generalized weakness, fatigue History of present illness: This is a pleasant 65-year-old gentleman who follows with Dr. Nicholson as his primary care provider. He has a history of hypertension, coronary artery disease with previous stent placement, ADHD IVs mellitus, sleep apnea utilizing CPAP chronic tobacco dependence. He presented here yesterday after a 6 day history of increasing weakness fatigue, chest discomfort, shortness of breath cough and congestion. CoVID 19 screen yesterday was positive. X-ray shows no acute pulmonary process. CT angiogram ruled out pulmonary embolism. There was however a some atelectasis of the right lower lobe. He's been afebrile. White count 4.1. Hemoglobin 13.5. Platelet count 226. INR 0.9. Sodium 131. Potassium 4.8. Creatinine 1.54. Glucose 208. C-reactive protein 1.8. LDH 536. Troponins are negative. Influenza screen negative. Shannon virus positive. He is seen today in consultation on the regular medical floor. He is currently sitting up in bed. Awake and alert in no acute distress. Maintaining O2 saturations in the mid to upper 90s on room air. He's afebrile. Hemodynamically stable. Breathing quite a bit easier today compared to yesterday. No significant chest discomfort. Review of Systems REVIEW OF SYSTEMS: CONSTITUTIONAL: Positive for generalized weakness, fatigue. Denies any recent significant weight loss or weight gain. EYES: Denies change in vision. EARS, NOSE, MOUTH, THROAT: Denies headaches, denies sore throat. CARDIOVASCULAR: Positive for atypical chest pain, no palpitations or syncopal episodes. RESPIRATORY: Positive for shortness of breath,no cough, congestion or hemoptysi s. GASTROINTESTINAL: Denies change in appetite, denies abdominal pain GENITOURINARY: Denies hematuria, denies infections. MUSKULOSKELETAL: Denies pain, denies swelling. INTEGUMENTARY: Denies rash, denies eczema. NEUROLOGICAL: Denies recent memory loss, no recent seizure activity. PSYCHIATRIC: Denies anxiety, denies depression. HEMATOLOGIC/LYMPHATIC: Denies anemia, denies enlarged lymph nodes. 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 History of Any Multi-Drug Resistant Organisms: None Reported Past Surgical History: Heart Catheterization With Stent, Joint Replacement, Orthopedic Surgery Additional Past Surgical History / Comment(s): cervical fusion, right hip replacement, septoplasty, arthroscopy rt knee Past Anesthesia/Blood Transfusion Reactions: No Reported Reaction Additional Past Anesthesia/Blood Transfusion Reaction / Comment(s): states no diff intubation Date of Last Stent Placement:: 05/10/2020 Past Psychological History: ADD/ADHD Smoking Status: Current some day smoker Past Alcohol Use History: None Reported Additional Past Alcohol Use History / Comment(s): smokes 1/2ppd Past Drug Use History: None Reported - Past Family History Mother Family Medical History: Cancer, Deep Vein Thrombosis (DVT) Medications and Allergies Home Medications Medication Instructions Recorded Confirmed Type Dextroamphetamine/Amphetamine 20 mg PO DAILY 05/22/16 07/31/20 History [Adderall] Aspirin 81 mg PO DAILY #0 chew 05/12/20 07/31/20 Rx Metoprolol Tartrate [Lopressor] 25 mg PO BID #60 tab 05/12/20 07/31/20 Rx Nitroglycerin Sl Tabs [Nitrostat] 0.4 mg SUBLINGUAL Q5M PRN #50 tab 05/12/20 07/31/20 Rx lisinopriL [Zestril] 5 mg PO DAILY #90 tab 05/12/20 07/31/20 Rx Clopidogrel [Plavix] 75 mg PO DAILY 07/31/20 07/31/20 History Allergies Allergy/AdvReac Type Severity Reaction Status Date / Time duloxetine [From Cymbalta] Allergy Severe throat Verified 07/31/20 13:27 swelling, could not swallow prochlorperazine Allergy Severe "symptoms Verified 07/31/20 13:27 [From Compazine] similar to a stroke" acyclovir Allergy Swelling Verified 07/31/20 13:27 levofloxacin [From Levaquin] Allergy Swelling Verified 07/31/20 15:20 Penicillins Allergy Swelling Verified 07/31/20 13:27 poison dylon extract Allergy Unknown Verified 07/31/20 13:27 poison oak extract Allergy Unknown Verified 07/31/20 13:27 poison sumac extract Allergy Unknown Verified 07/31/20 13:27 pregabalin [From Lyrica] AdvReac can't Verified 07/31/20 13:27 walk, muscle and joint pain Physical Exam Vitals: Vital Signs Temp Pulse Pulse Resp BP BP Pulse Ox 08/01/20 07:15 97.7 F 83 16 115/70 97 08/01/20 02:00 60 17 130/75 98 07/31/20 20:00 98.1 F 58 L 18 120/69 96 07/31/20 18:16 97.4 F L 61 19 95/56 96 07/31/20 16:32 98.1 F 58 L 18 120/69 96 07/31/20 15:01 82 16 96/80 96 07/31/20 13:25 97.4 F L 91 22 115/69 100 Intake and Output 07/31/20 08/01/20 08/01/20 22:59 06:59 14:59 Intake Total 400 1200 Balance 400 1200 Intake: Intake, IV Titration 1200 Amount Sodium Chloride 0.9% 1, 1200 000 ml @ 100 mls/hr IV . Q10H [facility] Rx#:[id number] Oral 400 Other: Voiding Method Toilet Toilet Urinal Urinal # Voids 3 3 Weight 92.986 kg GENERAL EXAM: Alert, active, 65 year old gentleman, on room air, comfortable in no apparent distress. HEAD: Normocephalic. EYES: Normal reaction of pupils, equal size. NOSE: Clear with pink turbinates. THROAT: No erythema or exudates. NECK: No masses, no JVD. CHEST: No chest wall deformity. LUNGS: Equal air entry with no crackles, wheeze, rhonchi or dullness. CVS: S1 and S2 normal with no audible murmur, regular rhythm. ABDOMEN: No hepatosplenomegaly, normal bowel sounds, no guarding or rigidity. SPINE: No scoliosis or deformity SKIN: No rashes CENTRAL NERVOUS SYSTEM: No focal deficits, tone is normal in all 4 extremities. EXTREMITIES: There is no peripheral edema. No clubbing, no cyanosis. Periphe ral pulses are intact. Results - Laboratory Findings CBC and BMP: 07/31/20 14:20 07/31/20 14:20 PT/INR, D-dimer PT 9.5 sec (9.0-12.0) 07/31/20 14:20 INR 0.9 (<1.2) 07/31/20 14:20 Abnormal lab findings: Abnormal Labs 07/31/20 07/31/20 07/31/20 14:20 14:20 15:06 RBC 4.25 L Hct 38.8 L Sodium 131 L BUN 22 H Creatinine 1.54 H Glucose 120 H POC Glucose (mg/dL) C-Reactive Protein 1.8 H HDL Cholesterol SARS-CoV-2 (PCR) Detected A 07/31/20 08/01/20 08/01/20 20:57 04:40 07:15 RBC Hct Sodium BUN Creatinine Glucose POC Glucose (mg/dL) 208 H 159 H C-Reactive Protein HDL Cholesterol 25.0 L SARS-CoV-2 (PCR) 08/01/20 12:05 RBC Hct Sodium BUN Creatinine Glucose POC Glucose (mg/dL) 242 H C-Reactive Protein HDL Cholesterol SARS-CoV-2 (PCR) - Diagnostic Findings Chest x-ray: image reviewed CT scan - chest: image reviewed Assessment and Plan Assessment: 1 Acute COVID-19 infection without significant pulmonary symptoms. On room air. Does not qualify for Remdesivir 2 Generalized weakness atypical chest pain secondary to above 3 Coronary artery disease with previous stent placement 4 ADHD 5 Diabetes mellitus 6 Obstructive sleep apnea not utilizing CPAP 7 History of spasmodic torticollis dystonia Plan: The patient was seen and evaluated by Dr. Mina X-ray, CAT scans and labs reviewed Doing well on room air Dexamethasone, Lovenox, vitamin supplements for now Could consider discharging and receiving mono clonal antibodies as outpatient I, the cosigning physician, performed a history & physical examination of the patient. Lungs sounds are clear. Maintaining good O2 saturations in the 90s on room air. I discussed the assessment and plan of care with my nurse practitioner, Gladys Roach. I attest to the above consultation as dictated by her. Time with Patient: Greater than 30
--- NOTE | 2020-08-01 14:37 | P.HPIM ---
History of Present Illness H&P Date: 08/01/20 Chief Complaint: Chest pain/COVID symptoms 65-year-old male DF for evaluation. Patient coming in for evaluation coronavirus. Patient's about 6 days of severe weakness not feeling well lightheaded dizzy occasional chest pain shortness of breath decreased appetite. Decreased activity level. Patient again does feel like he has coronavirus. Patient also complaining of chest pain associated with lightheadedness and shortness of breath Workup in ED including an EKG was unremarkable; cardiac enzymes are negative; chest x-ray and CT of the chest are obtained which are consistent with COVID infection and pneumonia Patient is being admitted to the hospital for further evaluation by pulmonary and cardiology Review of Systems REVIEW OF SYSTEMS: CONSTITUTIONAL: No fever, no malaise, no fatigue. HEENT: No recent visual problems or hearing problems. Denied any sore throat. CARDIOVASCULAR: chest pain, orthopnea, PND, no palpitations, no syncope. PULMONARY: shortness of breath, no cough, no hemoptysis. GASTROINTESTINAL: No diarrhea, no nausea, no vomiting, no abdominal pain. NEUROLOGICAL: No headaches, no weakness, no numbness. HEMATOLOGICAL: Denies any bleeding or petechiae. GENITOURINARY: Denies any burning micturition, frequency, or urgency. MUSCULOSKELETAL/RHEUMATOLOGICAL: Denies any joint pain, swelling, or any muscle pain. ENDOCRINE: Denies any polyuria or polydipsia. The rest of the 14-point review of systems is negative. 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 History of Any Multi-Drug Resistant Organisms: None Reported Past Surgical History: Heart Catheterization With Stent, Joint Replacement, Orthopedic Surgery Additional Past Surgical History / Comment(s): cervical fusion, right hip replacement, septoplasty, arthroscopy rt knee Past Anesthesia/Blood Transfusion Reactions: No Reported Reaction Additional Past Anesthesia/Blood Transfusion Reaction / Comment(s): states no diff intubation Date of Last Stent Placement:: 05/10/2020 Past Psychological History: ADD/ADHD Smoking Status: Current some day smoker Past Alcohol Use History: None Reported Additional Past Alcohol Use History / Comment(s): smokes 1/2ppd Past Drug Use History: None Reported - Past Family History Mother Family Medical History: Cancer, Deep Vein Thrombosis (DVT) Medications and Allergies Home Medications Medication Instructions Recorded Confirmed Type Dextroamphetamine/Amphetamine 20 mg PO DAILY 05/22/16 07/31/20 History [Adderall] Aspirin 81 mg PO DAILY #0 chew 05/12/20 07/31/20 Rx Metoprolol Tartrate [Lopressor] 25 mg PO BID #60 tab 05/12/20 07/31/20 Rx Nitroglycerin Sl Tabs [Nitrostat] 0.4 mg SUBLINGUAL Q5M PRN #50 tab 05/12/20 07/31/20 Rx lisinopriL [Zestril] 5 mg PO DAILY #90 tab 05/12/20 07/31/20 Rx Clopidogrel [Plavix] 75 mg PO DAILY 07/31/20 07/31/20 History Allergies Allergy/AdvReac Type Severity Reaction Status Date / Time duloxetine [From Cymbalta] Allergy Severe throat Verified 07/31/20 13:27 swelling, could not swallow prochlorperazine Allergy Severe "symptoms Verified 07/31/20 13:27 [From Compazine] similar to a stroke" acyclovir Allergy Swelling Verified 07/31/20 13:27 levofloxacin [From Levaquin] Allergy Swelling Verified 07/31/20 15:20 Penicillins Allergy Swelling Verified 07/31/20 13:27 poison dylon extract Allergy Unknown Verified 07/31/20 13:27 poison oak extract Allergy Unknown Verified 07/31/20 13:27 poison sumac extract Allergy Unknown Verified 07/31/20 13:27 pregabalin [From Lyrica] AdvReac can't Verified 07/31/20 13:27 walk, muscle and joint pain Physical Exam Vitals: Vital Signs Temp Pulse Pulse Resp BP BP Pulse Ox 08/01/20 07:15 97.7 F 83 16 115/70 97 08/01/20 02:00 60 17 130/75 98 07/31/20 20:00 98.1 F 58 L 18 120/69 96 07/31/20 18:16 97.4 F L 61 19 95/56 96 07/31/20 16:32 98.1 F 58 L 18 120/69 96 07/31/20 15:01 82 16 96/80 96 07/31/20 13:25 97.4 F L 91 22 115/69 100 Intake and Output 07/31/20 08/01/20 08/01/20 22:59 06:59 14:59 Intake Total 400 1200 Balance 400 1200 Intake: Intake, IV Titration 1200 Amount Sodium Chloride 0.9% 1, 1200 000 ml @ 100 mls/hr IV . Q10H TRISTIN Rx#:[id number] Oral 400 Other: Voiding Method Toilet Toilet Urinal Urinal # Voids 3 3 Weight 92.986 kg PHYSICAL EXAMINATION: GENERAL: The patient is alert and oriented x3, not in any acute distress. Well developed, well nourished. HEENT: Pupils are round and equally reacting to light. EOMI. No scleral icterus. No conjunctival pallor. Normocephalic, atraumatic. No pharyngeal erythema. No thyromegaly. CARDIOVASCULAR: S1 and S2 present. No murmurs, rubs, or gallops. PULMONARY: Chest is clear to auscultation, no wheezing or crackles. ABDOMEN: Soft, nontender, nondistended, normoactive bowel sounds. No palpable organomegaly. MUSCULOSKELETAL: No joint swelling or deformity. EXTREMITIES: No cyanosis, clubbing, or pedal edema. NEUROLOGICAL: Gross neurological examination did not reveal any focal deficits. SKIN: No rashes. Results CBC & Chem 7: 07/31/20 14:20 07/31/20 14:20 Labs: Abnormal Lab Results - Last 24 Hours (Table) 07/31/20 07/31/20 07/31/20 Range/Units 14:20 14:20 15:06 RBC 4.25 L (4.30-5.90) m/uL Hct 38.8 L (39.0-53.0) % Sodium 131 L (137-145) mmol/L BUN 22 H (9-20) mg/dL Creatinine 1.54 H (0.66-1.25) mg/dL Glucose 120 H (74-99) mg/dL POC Glucose (mg/dL) (75-99) mg/dL C-Reactive Protein 1.8 H (<1.0) mg/dL HDL Cholesterol (40.0-60.0) mg/dL SARS-CoV-2 (PCR) Detected A (Not Detectd) 07/31/20 08/01/20 08/01/20 Range/Units 20:57 04:40 07:15 RBC (4.30-5.90) m/uL Hct (39.0-53.0) % Sodium (137-145) mmol/L BUN (9-20) mg/dL Creatinine (0.66-1.25) mg/dL Glucose (74-99) mg/dL POC Glucose (mg/dL) 208 H 159 H (75-99) mg/dL C-Reactive Protein (<1.0) mg/dL HDL Cholesterol 25.0 L (40.0-60.0) mg/dL SARS-CoV-2 (PCR) (Not Detectd) 08/01/20 Range/Units 12:05 RBC (4.30-5.90) m/uL Hct (39.0-53.0) % Sodium (137-145) mmol/L BUN (9-20) mg/dL Creatinine (0.66-1.25) mg/dL Glucose (74-99) mg/dL POC Glucose (mg/dL) 242 H (75-99) mg/dL C-Reactive Protein (<1.0) mg/dL HDL Cholesterol (40.0-60.0) mg/dL SARS-CoV-2 (PCR) (Not Detectd) Thrombosis Risk Factor Assmnt - Choose All That Apply Any of the Below Risk Factors Present?: Yes Each Factor Represents 1 point: Age 41-60 years Other Risk Factors: Yes Each Risk Factor Represents 2 Points: Age 61-74 years Other congenital or acquired thrombophilia - If yes, enter type in comment: No Thrombosis Risk Factor Assessment Total Risk Factor Score: 3 Thrombosis Risk Factor Assessment Level: Moderate Risk Assessment and Plan Assessment: 1. Acute COVID 19 infection - Patient is saturating above 90% on room air; no significant pulmonary symptoms - We will consult pulmonary for further recommendations; patient has been placed on dexamethasone, Lovenox and COVID-19 vitamin cocktail 2. Chest pain; history of CAD with previous stent placement - We will admit to cardiac telemetry; monitor EKG and troponin; 2-D echo - Continue with aspirin 81 mg daily, Plavix 75 mg daily, lisinopril 5 mg daily and metoprolol 25 mg twice a day - Consult cardiology for further recommendations 3. Diabetes mellitus; monitor Accu-Cheks before meals and at bedtime with insulin sliding scale 4. Obstructive sleep apnea; patient does not use CPAP at home 5. ADHD; resume home dose of Adderall 20 mg daily 6. Hypertension; stable on home dose of lisinopril 5 mg daily along with metoprolol 25 mg twice a day DVT prophylaxis; SCDs/subcu Lovenox CODE STATUS; full code
[2020-08-01 17:18] LABS: Glucose,Whole Blood 162 mg/dL (75-99)
[2020-08-01] MEDS: ENOXAPARIN 40 MG/0.4 ML SYRINGE SQ SCH (17:37)
[2020-08-01] MEDS: CHOLECALCIFEROL 25 MCG (1000 IU) TABLET PO SCH (17:37)
[2020-08-01] MEDS: ASCORBIC ACID 500 MG TAB PO SCH (17:37)
[2020-08-01] MEDS: dexAMETHasone 2 MG TAB PO SCH (17:37)
[2020-08-01] MEDS: ZINC SULFATE 220 MG CAP PO SCH (17:37)
[2020-08-01 20:37] LABS: Glucose,Whole Blood 119 mg/dL (75-99)
[2020-08-02] MEDS: SODIUM CHLORIDE 0.9% 1,000 ML IV SCH ×3 (04:29→09:14)
[2020-08-02 08:09] LABS: Glucose,Whole Blood 164 mg/dL (75-99)
--- NOTE | 2020-08-02 08:11 | P.PN ---
Subjective Principal diagnosis: Chest pain with Covid positive The patient is a 65-year-old white male with recent history of stent who complained of chest pressure. Appreciate cardiology and pulmonology input. We will await possible cardiac retesting. However, the patient seems a symptomatically is complaining of significant chest pain. He has not needing supplemental oxygen from Covid positivity. Unknown source of infection. Objective - Vital Signs Vital signs: Vital Signs Temp 97.9 F 08/02/20 02:00 Pulse 70 08/02/20 02:00 Resp 17 08/02/20 02:00 BP 130/68 08/02/20 02:00 Pulse Ox 95 08/02/20 02:00 Intake & Output 08/01/20 08/02/20 08/02/20 18:59 06:59 18:59 Other: Voiding Method Toilet Toilet Urinal Urinal # Voids 1 3 # Bowel Movements 1 - Constitutional General appearance: Present: no acute distress - EENT Eyes: Absent: abnormal pupil - Neck Neck: Absent: lymphadenopathy - Respiratory Respiratory: bilateral: CTA - Cardiovascular Rhythm: regular Heart sounds: normal: S1, S2 Abnormal Heart Sounds: Absent: S3 Gallop - Gastrointestinal General gastrointestinal: Present: soft. Absent: tenderness - Labs CBC & Chem 7: 07/31/20 14:20 07/31/20 14:20 Labs: Abnormal Lab Results - Last 24 Hours (Table) 08/01/20 08/01/20 08/01/20 Range/Units 04:40 12:05 17:14 POC Glucose (mg/dL) 242 H 162 H (75-99) mg/dL HDL Cholesterol 25.0 L (40.0-60.0) mg/dL 08/01/20 08/02/20 Range/Units 20:36 08:07 POC Glucose (mg/dL) 119 H 164 H (75-99) mg/dL HDL Cholesterol (40.0-60.0) mg/dL Assessment and Plan (1) Chest pain Current Visit: Yes Status: Acute Code(s): R07.9 - CHEST PAIN, UNSPECIFIED SNOMED Code(s): 11200038 (2) Coronavirus infection Current Visit: Yes Status: Acute Code(s): B34.2 - CORONAVIRUS INFECTION, UNSPECIFIED SNOMED Code(s): 899944500 Plan: Await cardiology input. Otherwise, anticipate discharge in next 24 hours.
[2020-08-02 09:05] LABS: Basophils # (A) 0.01 X 10*3/uL (0.00-0.10); Basophils % (A) 0.2 %; Eosinophils # (A) 0 X 10*3/uL (0.04-0.35); Eosinophils % (A) 0 %; HCT 33.4 % (39.6-50.0); HGB 11.3 g/dL (13.0-17.0); Lymphocytes # (A) 0.92 X 10*3/uL (0.90-5.00); Lymphocytes % (A) 18.1 %; MCH 30.7 pg (27.0-32.0); MCHC 33.8 g/dL (32.0-37.0); MCV 90.8 fL (80.0-97.0); Mean Platelet Volume 10.7 fL (9.5-12.2); Monocytes # (A) 0.32 X 10*3/uL (0.20-1.00); Monocytes % (A) 6.3 %; Neutrophils # (A) 3.81 X 10*3/uL (1.80-7.70); Platelet Count 235 X 10*3/uL (140-440); RBC 3.68 X 10*6/uL (4.40-5.60); WBC 5.08 X 10*3/uL (4.50-10.00)
[2020-08-02 09:08] VITALS: RESP 18
[2020-08-02] MEDS: ASPIRIN 325 MG TAB PO SCH (09:12)
[2020-08-02] MEDS: ENOXAPARIN 40 MG/0.4 ML SYRINGE SQ SCH (09:12)
[2020-08-02] MEDS: dexAMETHasone 2 MG TAB PO SCH (09:12)
[2020-08-02] MEDS: ASCORBIC ACID 500 MG TAB PO SCH (09:12)
[2020-08-02] MEDS: CHOLECALCIFEROL 25 MCG (1000 IU) TABLET PO SCH (09:12)
[2020-08-02] MEDS: ZINC SULFATE 220 MG CAP PO SCH (09:12)
[2020-08-02 09:32] LABS: African American GFR (CKD) 90.5 (60.0-200.0); Anion Gap 7.1 mmol/L (4.00-12.00); Calcium 8.3 mg/dL (8.7-10.3); Carbon Dioxide 20.9 mmol/L (21.6-31.8); Ferritin 465.5 ng/mL (22.0-322.0); Non-African American GFR(CKD) 78.1 (60.0-200.0); Potassium 4.9 mmol/L (3.5-5.5)
[2020-08-02 12:38] LABS: Glucose,Whole Blood 164 mg/dL (75-99)
--- NOTE | 2020-08-02 14:08 | P.DS ---
Providers Date of admission: 07/31/20 16:18 Attending physician: Reuben Nicholson Consults: 07/31/20 16:18 Consult Physician Routine Consulting Provider: Chelsea Wu Consult Reason/Comments: cp Do you want consulting provider notified?: Yes Consult Physician Urgent Consulting Provider: Jamaal Oneal Consult Reason/Comments: covid Do you want consulting provider notified?: Yes Primary care physician: Reuben Nicholson - Discharge Diagnosis(es) (1) Chest pain Current Visit: Yes Status: Acute (2) Coronavirus infection Current Visit: Yes Status: Acute Hospital Course: This is a discharge from a 65-year-old white male centimeter for chest pain with history of stent placement in the past. Covid positivity. Both cardiology and pulmonology were consulted. The patient was ruled out for myocardial infarction. Once he is cleared by consultants we will go ahead and DC once cleared. The patient is a follow-up with me in 1 week Patient Condition at Discharge: Fair Plan - Discharge Summary Discharge Rx Participant: Yes New Discharge Prescriptions: New Aspirin 325 mg PO DAILY tab Zinc Sulfate [Orazinc] 220 mg PO DAILY cap Ascorbic Acid [Vitamin C] 1,000 mg PO DAILY tab dexAMETHasone ORAL [Hexadrol] 6 mg PO DAILY #7 tab Continue Dextroamphetamine/Amphetamine [Adderall] 20 mg PO DAILY Aspirin 81 mg PO DAILY #0 chew Metoprolol Tartrate [Lopressor] 25 mg PO BID #60 tab Nitroglycerin Sl Tabs [Nitrostat] 0.4 mg SUBLINGUAL Q5M PRN #50 tab PRN Reason: Chest Pain lisinopriL [Zestril] 5 mg PO DAILY #90 tab Clopidogrel [Plavix] 75 mg PO DAILY Discharge Medication List Dextroamphetamine/Amphetamine [Adderall] 20 mg PO DAILY 05/22/16 [History] Aspirin 81 mg PO DAILY #0 chew 05/12/20 [Rx] Metoprolol Tartrate [Lopressor] 25 mg PO BID #60 tab 05/12/20 [Rx] Nitroglycerin Sl Tabs [Nitrostat] 0.4 mg SUBLINGUAL Q5M PRN #50 tab 05/12/20 [Rx] lisinopriL [Zestril] 5 mg PO DAILY #90 tab 05/12/20 [Rx] Clopidogrel [Plavix] 75 mg PO DAILY 07/31/20 [History] Ascorbic Acid [Vitamin C] 1,000 mg PO DAILY tab 08/02/20 [Rx] Aspirin 325 mg PO DAILY tab 08/02/20 [Rx] Zinc Sulfate [Orazinc] 220 mg PO DAILY cap 08/02/20 [Rx] dexAMETHasone ORAL [Hexadrol] 6 mg PO DAILY #7 tab 08/02/20 [Rx] Follow up Appointment(s)/Referral(s): Reuben Nicholson MD [Primary Care Provider] - 1-2 days
--- NOTE | 2020-08-02 15:20 | P.PN ---
Subjective Progress Note Date: 08/02/20 On today's evaluation of 08/02/2020, the patient on room air oxygen. He is a COVID-19 positive case. Chest x-ray showed no acute process. CT angiogram ruled out pulmonary embolism. No other complaints. Inflammatory markers are low. The plan is to go home with oral Decadron. Objective - Vital Signs Vital signs: Vital Signs Temp 98.7 F 08/02/20 07:00 Pulse 66 08/02/20 07:00 Resp 18 08/02/20 07:00 BP 129/68 08/02/20 07:00 Pulse Ox 95 08/02/20 07:00 Intake & Output 08/01/20 08/02/20 08/02/20 18:59 06:59 18:59 Intake Total 300 Balance 300 Intake: Oral 300 Other: Voiding Method Toilet Toilet Urinal Urinal # Voids 1 3 3 # Bowel Movements 1 - Exam GENERAL EXAM: Alert, active, 65 year old gentleman, on room air, comfortable in no apparent distress. HEAD: Normocephalic. EYES: Normal reaction of pupils, equal size. NOSE: Clear with pink turbinates. THROAT: No erythema or exudates. NECK: No masses, no JVD. CHEST: No chest wall deformity. LUNGS: Equal air entry with no crackles, wheeze, rhonchi or dullness. CVS: S1 and S2 normal with no audible murmur, regular rhythm. ABDOMEN: No hepatosplenomegaly, normal bowel sounds, no guarding or rigidity. SPINE: No scoliosis or deformity SKIN: No rashes CENTRAL NERVOUS SYSTEM: No focal deficits, tone is normal in all 4 extremities. EXTREMITIES: There is no peripheral edema. No clubbing, no cyanosis. Peripheral pulses are intact. - Labs CBC & Chem 7: 08/02/20 05:57 08/02/20 05:57 Labs: Abnormal Lab Results - Last 24 Hours (Table) 08/01/20 08/01/20 08/02/20 Range/Units 17:14 20:36 05:57 RBC 3.68 L (4.40-5.60) X 10*6/uL Hgb 11.3 L (13.0-17.0) g/dL Hct 33.4 L (39.6-50.0) % Eosinophils # 0 L (0.04-0.35) X 10*3/uL Carbon Dioxide (21.6-31.8) mmol/L Glucose (70-110) mg/dL POC Glucose (mg/dL) 162 H 119 H (75-99) mg/dL Calcium (8.7-10.3) mg/dL Ferritin (22.0-322.0) ng/mL 08/02/20 08/02/20 08/02/20 Range/Units 05:57 08:07 12:00 RBC (4.40-5.60) X 10*6/uL Hgb (13.0-17.0) g/dL Hct (39.6-50.0) % Eosinophils # (0.04-0.35) X 10*3/uL Carbon Dioxide 20.9 L (21.6-31.8) mmol/L Glucose 195 H (70-110) mg/dL POC Glucose (mg/dL) 164 H 164 H (75-99) mg/dL Calcium 8.3 L (8.7-10.3) mg/dL Ferritin 465.5 H (22.0-322.0) ng/mL Assessment and Plan Plan: 1 Acute COVID-19 infection without significant pulmonary symptoms. On room air. Does not qualify for Remdesivir 2 Generalized weakness atypical chest pain secondary to above 3 Coronary artery disease with previous stent placement 4 ADHD 5 Diabetes mellitus 6 Obstructive sleep apnea not utilizing CPAP 7 History of spasmodic torticollis dystonia Plan: Is doing very well. Doing well on room air and the patient remains on room air oxygen Dexamethasone , 6 mg, for a total of 10 days vitamin supplements for now Discharge home today
[2020-08-02 15:26] VITALS: BP 155/82; PULSE 101; TEMP 98
== END 2020-08-02 16:28 | disposition home or self-care (01) ==
LOC: EC 13:14 → 6NMEDSUR 16:18
PROVIDERS: ADMIT Family Medicine; ATTEND Family Medicine
DX: U07.1 COVID-19 (principal); J12.82 Pneumonia due to coronavirus disease 2019; I25.10 Atherosclerotic heart disease of native coronary artery without angina pectoris; E11.9 Type 2 diabetes mellitus without complications; G47.33 Obstructive sleep apnea (adult) (pediatric); I10 Essential (primary) hypertension; F90.9 Attention-deficit hyperactivity disorder, unspecified type; J98.11 Atelectasis; M19.90 Unspecified osteoarthritis, unspecified site; F17.200 Nicotine dependence, unspecified, uncomplicated; G24.3 Spasmodic torticollis; I86.8 Varicose veins of other specified sites; L98.9 Disorder of the skin and subcutaneous tissue, unspecified; Z79.82 Long term (current) use of aspirin; Z79.02 Long term (current) use of antithrombotics/antiplatelets; Z79.899 Other long term (current) drug therapy; Z88.8 Allergy status to other drugs, medicaments and biological substances; Z88.9 Allergy status to unspecified drugs, medicaments and biological substances; Z88.1 Allergy status to other antibiotic agents; Z88.0 Allergy status to penicillin; Z88.6 Allergy status to analgesic agent; Z95.5 Presence of coronary angioplasty implant and graft; Z87.440 Personal history of urinary (tract) infections; Z87.442 Personal history of urinary calculi; Z96.641 Presence of right artificial hip joint; Z86.73 Personal history of transient ischemic attack (TIA), and cerebral infarction without residual deficits
CPT/HCPCS: 96361 ×3; 96372 ×2; 96375 ×2; 96374; 99285; 36415; 93005; 80061; 80053; 80048; 82728; 83605; 83615 ×2; 83735; 84484; 85025 ×2; 85610; 85730; 86140; 84145; 87636; 71045; 71275; G0378 ×3; J2270; J1100; J1650 ×2; J8540 ×2; J1885; Q9967

== ENCOUNTER → 2020-11-17 | Outpatient (CLI) | payer MEDICARE, OTHER ==
--- NOTE | 2020-11-17 14:41 | XR ---
EXAMINATION TYPE: XR abdomen complete w decub DATE OF EXAM: 11/17/2020 HISTORY: Pain. Technique: 4 views of the abdomen are submitted. Comparison: None. Findings: There is no convincing evidence of pneumoperitoneum. The Bowel gas pattern is nonspecific and nonobstructive. No sizable air-fluid levels are seen. No mass effects are noted. No renal calcifications are identified. IMPRESSION: 1. Nonspecific nonobstructive bowel gas pattern
== END | disposition home or self-care (01) ==
LOC: RADXRMAIN 14:04
PROVIDERS: ATTEND Family Medicine
DX: R10.9 Unspecified abdominal pain (principal)
CPT/HCPCS: 74021

== ENCOUNTER 2021-02-14 22:12 | Emergency (ER) | payer MEDICARE ==
[2021-02-14 22:26] VITALS: TEMP 97
[2021-02-14 23:28] LABS: INR 0.9 (<1.2); Prothrombin Time 9.4 sec (9.0-12.0)
[2021-02-14 23:39] LABS: HCT 41.9 % (39.0-53.0); MCH 32.4 pg (25.0-35.0); MCHC 33.3 g/dL (31.0-37.0); MCV 97.2 fL (80.0-100.0); Mean Platelet Volume 7.6; Platelet Count 260 k/uL (150-450); RBC 4.31 m/uL (4.30-5.90); RDW 13.2 % (11.5-15.5); WBC 8.7 k/uL (3.8-10.6)
[2021-02-15 00:04] LABS: Partial Thromboplastin Time 21.8 sec (22.0-30.0)
[2021-02-15 00:58] LABS: Albumin 4.2 g/dL (3.5-5.0); Calcium 10.1 mg/dL (8.4-10.2); Potassium 4.6 mmol/L (3.5-5.1); Total Bilirubin 0.2 mg/dL (0.2-1.3); Total Protein 6.9 g/dL (6.3-8.2)
[2021-02-15] MEDS ORDERED: HYDROcodone/APAP 5-325MG 1 EACH TAB PO STA (01:06)
[2021-02-15 01:23] VITALS: RESP 16
[2021-02-15 02:44] VITALS: BP 149/78; PULSE 62
--- NOTE | 2021-02-15 02:52 | ED ---
General Adult HPI - General Chief complaint: Recheck/Abnormal Lab/Rx Stated complaint: Chest Pain, High K Level Time Seen by Provider: 02/15/21 00:54 Source: patient Mode of arrival: ambulatory Limitations: no limitations - History of Present Illness Initial comments: 's patient is 65-year-old man who presents to have evaluation for suspected hyperkalemia. Patient states that he had gone to the [facility] to be evaluated for fatigue and myalgias. The patient states that he had lab testing there and then he received a call tonight telling him that his potassium was 6. The patient is not having chest pain or palpitations. -: hour(s) Location: left, right, upper extremity, lower extremity Quality: dull Consistency: constant Improves with: none Worsens with: none Associated Symptoms: malaise, weakness Treatments Prior to Arrival: none - Related Data Home Medications Medication Instructions Recorded Confirmed Dextroamphetamine/Amphetamine 20 mg PO DAILY 05/22/16 07/31/20 [Adderall] Clopidogrel [Plavix] 75 mg PO DAILY 07/31/20 07/31/20 Previous Rx's Medication Instructions Recorded Aspirin 81 mg PO DAILY #0 chew 05/12/20 Metoprolol Tartrate [Lopressor] 25 mg PO BID #60 tab 05/12/20 Nitroglycerin Sl Tabs [Nitrostat] 0.4 mg SUBLINGUAL Q5M PRN #50 tab 05/12/20 lisinopriL [Zestril] 5 mg PO DAILY #90 tab 05/12/20 Ascorbic Acid [Vitamin C] 1,000 mg PO DAILY tab 08/02/20 Aspirin 325 mg PO DAILY tab 08/02/20 Zinc Sulfate [Orazinc] 220 mg PO DAILY cap 08/02/20 dexAMETHasone ORAL [Hexadrol] 6 mg PO DAILY #7 tab 08/02/20 Allergies Allergy/AdvReac Type Severity Reaction Status Date / Time duloxetine [From Cymbalta] Allergy Severe throat Verified 02/14/21 22:27 swelling, could not swallow prochlorperazine Allergy Severe "symptoms Verified 02/14/21 22:27 [From Compazine] similar to a stroke" acyclovir Allergy Swelling Verified 02/14/21 22:27 levofloxacin [From Levaquin] Allergy Swelling Verified 02/14/21 22:27 Penicillins Allergy Swelling Verified 02/14/21 22:27 poison dylon extract Allergy Unknown Verified 02/14/21 22:27 poison oak extract Allergy Unknown Verified 02/14/21 22:27 poison sumac extract Allergy Unknown Verified 02/14/21 22:27 rosuvastatin [From Crestor] Allergy Unknown Verified 02/14/21 22:27 pregabalin [From Lyrica] AdvReac can't Verified 02/14/21 22:27 walk, muscle and joint pain Review of Systems ROS Statement: Those systems with pertinent positive or pertinent negative responses have been documented in the HPI. ROS Other: All systems not noted in ROS Statement are negative. Constitutional: Reports: weakness. Denies: fever, chills Respiratory: Denies: cough, dyspnea Cardiovascular: Denies: chest pain, palpitations, edema, syncope Endocrine: Reports: fatigue Gastrointestinal: Denies: abdominal pain, vomiting, diarrhea, constipation Genitourinary: Denies: dysuria, hematuria Musculoskeletal: Reports: myalgia Skin: Denies: rash Neurological: Denies: headache, weakness, numbness Past Medical History Past Medical History: Coronary Artery Disease (CAD), Diabetes Mellitus, Neurologic Disorder, Osteoarthritis (OA), Skin Disorder, Sleep Apnea/CPAP/BIPAP Additional Past Medical History / Comment(s): hx childhood asthma, has c pap do es not use, rosacea, ol, stroke like episode from reation to compazine(effects vision and hearing), varicose veins, hx kidney stones, "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 History of Any Multi-Drug Resistant Organisms: None Reported Past Surgical History: Heart Catheterization With Stent, Joint Replacement, Orthopedic Surgery Additional Past Surgical History / Comment(s): cervical fusion, right hip replacement, septoplasty, arthroscopy rt knee Past Anesthesia/Blood Transfusion Reactions: No Reported Reaction Additional Past Anesthesia/Blood Transfusion Reaction / Comment(s): states no diff intubation Date of Last Stent Placement:: 05/10/2020 Past Psychological History: ADD/ADHD Smoking Status: Current some day smoker Past Alcohol Use History: None Reported Past Drug Use History: None Reported - Past Family History Mother Family Medical History: Cancer, Deep Vein Thrombosis (DVT) General Exam Limitations: no limitations General appearance: alert, in no apparent distress Head exam: Present: atraumatic, normocephalic Eye exam: Present: normal appearance. Absent: scleral icterus, conjunctival injection Neck exam: Present: normal inspection, full ROM Respiratory exam: Present: normal lung sounds bilaterally. Absent: respiratory distress, wheezes, rales, rhonchi, stridor Cardiovascular Exam: Present: regular rate, normal rhythm, normal heart sounds. Absent: systolic murmur, diastolic murmur, rubs, gallop GI/Abdominal exam: Present: soft. Absent: distended, tenderness, guarding, rebound, rigid, mass Extremities exam: Present: normal inspection, normal capillary refill. Absent: pedal edema, calf tenderness Back exam: Present: normal inspection. Absent: CVA tenderness (R), CVA tenderness (L) Neurological exam: Present: alert. Absent: motor sensory deficit Skin exam: Present: warm, dry, intact, normal color. Absent: rash Course Vital Signs 02/14/21 02/15/21 02/15/21 22:22 01:22 02:00 Temperature 97 F L Pulse Rate 68 55 L 62 Respiratory 18 16 16 Rate Blood Pressure 131/79 145/77 149/78 O2 Sat by Pulse 96 98 95 Oximetry Medical Decision Making - Lab Data Result diagrams: 02/14/21 22:32 02/14/21 22:32 Lab Results 02/14/21 02/14/21 02/14/21 Range/Units 22:32 22:32 22:32 WBC 8.7 (3.8-10.6) k/uL RBC 4.31 (4.30-5.90) m/uL Hgb 14.0 (13.0-17.5) gm/dL Hct 41.9 (39.0-53.0) % MCV 97.2 (80.0-100.0) fL MCH 32.4 (25.0-35.0) pg MCHC 33.3 (31.0-37.0) g/dL RDW 13.2 (11.5-15.5) % Plt Count 260 (150-450) k/uL MPV 7.6 Neutrophils % (Manual) 50 % Band Neuts % (Manual) 2 % Lymphocytes % (Manual) 35 % Monocytes % (Manual) 9 % Eosinophils % (Manual) 4 % Neutrophils # (Manual) 4.50 (1.3-7.7) k/uL Lymphocytes # (Manual) 3.05 (1.0-4.8) k/uL Monocytes # (Manual) 0.78 (0-1.0) k/uL Eosinophils # (Manual) 0.35 (0-0.7) k/uL Nucleated RBCs 0 (0-0) /100 WBC Manual Slide Review Performed Anisocytosis (manual) Present PT 9.4 (9.0-12.0) sec INR 0.9 (<1.2) APTT 21.8 L (22.0-30.0) sec Sodium 136 L (137-145) mmol/L Potassium 4.6 (3.5-5.1) mmol/L Chloride 106 (98-107) mmol/L Carbon Dioxide 20 L (22-30) mmol/L Anion Gap 10 mmol/L BUN 20 (9-20) mg/dL Creatinine 1.04 (0.66-1.25) mg/dL Est GFR (CKD-EPI)AfAm 87 (>60 ml/min/1.73 sqM) Est GFR (CKD-EPI)NonAf 75 (>60 ml/min/1.73 sqM) Glucose 156 H (74-99) mg/dL Calcium 10.1 (8.4-10.2) mg/dL Total Bilirubin 0.2 (0.2-1.3) mg/dL AST 29 (17-59) U/L ALT 21 (4-49) U/L Alkaline Phosphatase 83 (38-126) U/L Troponin I (0.000-0.034) ng/mL NT-Pro-B Natriuret Pep pg/mL Total Protein 6.9 (6.3-8.2) g/dL Albumin 4.2 (3.5-5.0) g/dL 02/14/21 02/14/21 Range/Units 22:32 22:32 WBC (3.8-10.6) k/uL RBC (4.30-5.90) m/uL Hgb (13.0-17.5) gm/dL Hct (39.0-53.0) % MCV (80.0-100.0) fL MCH (25.0-35.0) pg MCHC (31.0-37.0) g/dL RDW (11.5-15.5) % Plt Count (150-450) k/uL MPV Neutrophils % (Manual) % Band Neuts % (Manual) % Lymphocytes % (Manual) % Monocytes % (Manual) % Eosinophils % (Manual) % Neutrophils # (Manual) (1.3-7.7) k/uL Lymphocytes # (Manual) (1.0-4.8) k/uL Monocytes # (Manual) (0-1.0) k/uL Eosinophils # (Manual) (0-0.7) k/uL Nucleated RBCs (0-0) /100 WBC Manual Slide Review Anisocytosis (manual) PT (9.0-12.0) sec INR (<1.2) APTT (22.0-30.0) sec Sodium (137-145) mmol/L Potassium (3.5-5.1) mmol/L Chloride (98-107) mmol/L Carbon Dioxide (22-30) mmol/L Anion Gap mmol/L BUN (9-20) mg/dL Creatinine (0.66-1.25) mg/dL Est GFR (CKD-EPI)AfAm (>60 ml/min/1.73 sqM) Est GFR (CKD-EPI)NonAf (>60 ml/min/1.73 sqM) Glucose (74-99) mg/dL Calcium (8.4-10.2) mg/dL Total Bilirubin (0.2-1.3) mg/dL AST (17-59) U/L ALT (4-49) U/L Alkaline Phosphatase (38-126) U/L Troponin I <0.012 (0.000-0.034) ng/mL NT-Pro-B Natriuret Pep 47 pg/mL Total Protein (6.3-8.2) g/dL Albumin (3.5-5.0) g/dL Disposition Clinical Impression: No problem, feared complaint unfounded Disposition: HOME SELF-CARE Condition: Good Instructions (If sedation given, give patient instructions): Diabetic Hyperglycemia (ED) Is patient prescribed a controlled substance at d/c from ED?: No Referrals: Reuben Nicholson MD [Primary Care Provider] - 1-2 days
[2021-02-15 03:12] LABS: Band Neutrophils % 2 %; Eosinophils # (M) 0.35 k/uL (0-0.7); Lymphocytes # (M) 3.05 k/uL (1.0-4.8); Monocytes # (M) 0.78 k/uL (0-1.0); Neutrophils % (M) 50 %; Nucleated Red Blood Cells 0 /100 WBC (0-0); Total Cells Counted 100
[2021-02-15 03:13] LABS: Anisocytosis (M) Present
== END 2021-02-15 02:57 | disposition home or self-care (01) ==
LOC: EC 22:12
DX: R07.9 Chest pain, unspecified (principal); R53.81 Other malaise; R53.1 Weakness; Z71.1 Person with feared health complaint in whom no diagnosis is made; E11.9 Type 2 diabetes mellitus without complications; F17.200 Nicotine dependence, unspecified, uncomplicated; Z88.0 Allergy status to penicillin; Z88.8 Allergy status to other drugs, medicaments and biological substances
CPT/HCPCS: 36415; 80053; 83880; 84484; 85025; 85610; 85730; 93005; 99285

== ENCOUNTER 2021-06-24 18:27 | Emergency (ER) | payer OTHER, MEDICARE ==
[2021-06-24 18:43] VITALS: TEMP 97.5
[2021-06-24] MEDS ORDERED: KETOROLAC 15 MG/ML 1 ML VIAL IM STA (21:42)
[2021-06-24] MEDS ORDERED: LIDOCAINE 5% PATCH TOPICAL SCH (21:45)
[2021-06-24] MEDS ORDERED: CYCLOBENZAPRINE 5 MG TAB PO STA (21:52)
[2021-06-24] MEDS ORDERED: DEXAMETHASONE SOD PHOSPHATE 10 MG/ML 1 ML VIAL IM STA (21:53)
--- NOTE | 2021-06-24 22:22 | ED ---
General Adult HPI - General Chief complaint: Extremity Problem,Nontraumatic Stated complaint: rt arm/shoulder pain Time Seen by Provider: 06/24/21 21:01 Source: patient Mode of arrival: ambulatory Limitations: no limitations - History of Present Illness Initial comments: This 66-year-old male presents emergency Department with neck pain, right shoulder pain, right elbow pain 1 month. Patient states one month ago he was making his bed and "fluffing the blankets" when he felt his right shoulder pop and felt pain at this time. Patient states for the last month pain has been progressively worsening. Patient states the pain starts on the right side of his neck in his muscles and radiates to his right shoulder and elbow. Patient states he is able to raise his arm anteriorly and laterally but states it does cause pain to the lateral side of his elbow and anterior shoulder. Patient states he randomly gets muscle spasms on the right side of his neck in the posterior shoulder muscles. Patient states he has been taking Tylenol for his pain which seems to minimally relieve the pain. Patient states he did see his primary care provider for this issue earlier in the month. Patient states in 2007 he had C3 spine fusion. Patient states he does have full range of motion of his neck and does not have much pain when moving his head [id number] or up and down. States pain is 9/10. Patient denies any chest pain, shortness of breath, abdominal pain, nausea, vomiting, low back pain, change in bowel or bladder, bowel or bladder retention/incontinence, saddle anesthesia, headache, lightheadedness, dizziness, change in vision. - Related Data Home Medications Medication Instructions Recorded Confirmed Dextroamphetamine/Amphetamine 20 mg PO DAILY 05/22/16 07/31/20 [Adderall] Clopidogrel [Plavix] 75 mg PO DAILY 07/31/20 07/31/20 Previous Rx's Medication Instructions Recorded Aspirin 81 mg PO DAILY #0 chew 05/12/20 Metoprolol Tartrate [Lopressor] 25 mg PO BID #60 tab 05/12/20 Nitroglycerin Sl Tabs [Nitrostat] 0.4 mg SUBLINGUAL Q5M PRN #50 tab 05/12/20 lisinopriL [Zestril] 5 mg PO DAILY #90 tab 05/12/20 Ascorbic Acid [Vitamin C] 1,000 mg PO DAILY tab 05/03/21 Aspirin 325 mg PO DAILY tab 08/02/20 Zinc Sulfate [Orazinc] 220 mg PO DAILY cap 08/02/20 dexAMETHasone ORAL [Hexadrol] 6 mg PO DAILY #7 tab 08/02/20 Cyclobenzaprine [Flexeril] 5 mg PO TID #15 tablet 06/24/21 Ibuprofen [Motrin] 600 mg PO Q8HR PRN #20 tab 06/24/21 Lidocaine 5% Patch [Lidoderm 5% 1 patch TOPICAL DAILY #1 patch 06/24/21 Patch] Allergies Allergy/AdvReac Type Severity Reaction Status Date / Time duloxetine [From Cymbalta] Allergy Severe throat Verified 06/24/21 18:43 swelling, could not swallow prochlorperazine Allergy Severe "symptoms Verified 06/24/21 18:43 [From Compazine] similar to a stroke" acyclovir Allergy Swelling Verified 06/24/21 18:43 levofloxacin [From Levaquin] Allergy Swelling Verified 06/24/21 18:43 Penicillins Allergy Swelling Verified 06/24/21 18:43 poison dylon extract Allergy Unknown Verified 06/24/21 18:43 poison oak extract Allergy Unknown Verified 06/24/21 18:43 poison sumac extract Allergy Unknown Verified 06/24/21 18:43 rosuvastatin [From Crestor] Allergy Unknown Verified 06/24/21 18:43 pregabalin [From Lyrica] AdvReac can't Verified 06/24/21 18:43 walk, muscle and joint pain Review of Systems ROS Statement: Those systems with pertinent positive or pertinent negative responses have been documented in the HPI. ROS Other: All systems not noted in ROS Statement are negative. 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 History of Any Multi-Drug Resistant Organisms: None Reported Past Surgical History: Heart Catheterization With Stent, Joint Replacement, Orthopedic Surgery Additional Past Surgical History / Comment(s): cervical fusion, right hip replacement, septoplasty, arthroscopy rt knee Past Anesthesia/Blood Transfusion Reactions: No Reported Reaction Additional Past Anesthesia/Blood Transfusion Reaction / Comment(s): states no diff intubation Date of Last Stent Placement:: 05/10/2020 Past Psychological History: ADD/ADHD Smoking Status: Current some day smoker Past Alcohol Use History: None Reported Past Drug Use History: None Reported - Past Family History Mother Family Medical History: Cancer, Deep Vein Thrombosis (DVT) General Exam Limitations: no limitations General appearance: alert, in no apparent distress Head exam: Present: atraumatic, normocephalic, normal inspection Eye exam: Present: normal appearance, PERRL, EOMI. Absent: scleral icterus, conjunctival injection, periorbital swelling Pupils: Present: normal accommodation ENT exam: Present: normal exam, mucous membranes moist Neck exam: Present: normal inspection, tenderness (No C-spine tenderness, mild tenderness to palpation to paraspinal region on right side of C-spine), full ROM. Absent: meningismus, lymphadenopathy Respiratory exam: Present: normal lung sounds bilaterally. Absent: respiratory distress, wheezes, rales, rhonchi, stridor Cardiovascular Exam: Present: regular rate, normal rhythm, normal heart sounds. Absent: systolic murmur, diastolic murmur, rubs, gallop, clicks GI/Abdominal exam: Present: soft, normal bowel sounds. Absent: distended, tenderness, guarding, rebound, rigid Extremities exam: Present: normal inspection, full ROM (Patient with pain when raising his hand anteriorly or laterally. Patient is able to raise arm approximately 130 degrees anteriorly and is able to raise arm 90 degrees laterally before causing pain to his shoulder. Patient with tenderness to palpation over lateral side of right elbow.), normal capillary refill, other (Radial and ulnar pulses palpable. Patient without pain when asked to squeeze my fingers. Sensation fully intact of right hand, arm and shoulder. Patient w/o any erythema, warmth/swelling of right extremity. Strength equal and right and left arm,pushing against resistance is slighly decreased rt). Absent: tenderness, pedal edema, joint swelling, calf tenderness Back exam: Present: normal inspection, full ROM, paraspinal tenderness (Mild right-sided cervical paraspinal tenderness to deep palpation). Absent: CVA tenderness (R), CVA tenderness (L), vertebral tenderness Neurological exam: Present: alert, oriented X3, CN II-XII intact Psychiatric exam: Present: normal affect, normal mood Skin exam: Present: warm, dry, intact, normal color. Absent: rash Course Vital Signs 06/24/21 18:41 Temperature 97.5 F L Pulse Rate 94 Respiratory 20 Rate Blood Pressure 149/87 O2 Sat by Pulse 98 Oximetry Medical Decision Making - Medical Decision Making This 66-year-old male comes emergency Department with right cervical paraspinal tenderness, right shoulder pain, right elbow pain 1 month. History cervical spine: Neural foraminal narrowing at C5 C4-5 bilaterally. No fracture. Previous surgery. Right shoulder x-ray: There is some osteoarthritis. No fracture. Minor spurring of the glenohumeral joint. No fracture or dislocation. X-ray elbow right impression: calcific tendinitis at the triceps tendon. No fracture seen. After receiving Toradol, Decadron, Flexeril and lidocaine patch, patient states his pain has significantly decreased to 3/10. Patient states he's medications helped his range of motion and states he has very minimal pain with moving his shoulder and elbow. Patient to follow-up with orthopedics early next week. Motrin, Flexeril and lidocaine patch prescribed patient. Due to patient's history of diabetes mellitus I did not prescribe steroids for patient. I did instruct patient to follow up with his primary care provider next week. Strict return precautions were discussed. Patient verbally agreed to plan. Patient sent home in stable condition. Case discussed in detail my attending, Dr. Anaya. - Radiology Data Radiology results: report reviewed, image reviewed Disposition Clinical Impression: Right shoulder pain, Triceps tendinitis, Right elbow pain, Neck muscle strain Disposition: HOME SELF-CARE Condition: Stable Instructions (If sedation given, give patient instructions): Musculoskeletal Pain (ED) Additional Instructions: Please follow-up with orthopedic doctor early next week. Follow up with her primary care provider next 24-48 hours. Return to the emergency department with any new, worsening, or concerning symptoms. Use Flexeril, ibuprofen and lidocaine patch as directed. Prescriptions: Cyclobenzaprine [Flexeril] 5 mg PO TID #15 tablet Lidocaine 5% Patch [Lidoderm 5% Patch] 1 patch TOPICAL DAILY #1 patch Ibuprofen [Motrin] 600 mg PO Q8HR PRN #20 tab PRN Reason: Pain Is patient prescribed a controlled substance at d/c from ED?: No Referrals: Reuben Nicholson MD [Primary Care Provider] - 1-2 days Ubaldo Caro DO [Doctor of Osteopathic Medicine] - 1-2 days Time of Disposition: 23:08
--- NOTE | 2021-06-24 22:26 | XR ---
EXAMINATION TYPE: XR cervical spine comp DATE OF EXAM: 06/24/2021 COMPARISON: NONE HISTORY: Neck pain TECHNIQUE: 6 views FINDINGS: Atlantoaxial facet joint is normal. There is anterior fusion surgery at C5 and C6 and C7. T he posterior elements are intact. There are no cervical ribs. No compression fracture. No significant neural foraminal narrowing except at C4-5 on the bilateral with facet arthropathy and encroachment o n the neural foramen. IMPRESSION: Neural foraminal narrowing at C5 C4-5 bilaterally. No fracture. Previous surgery.
--- NOTE | 2021-06-24 22:28 | XR ---
EXAMINATION TYPE: XR shoulder complete RT DATE OF EXAM: 06/24/2021 COMPARISON: NONE HISTORY: Shoulder pain TECHNIQUE: 3 views FINDINGS: There is some minor spurring at the glenohumeral joint. The AC joint shows also moderate sp ur formation. There is no fracture nor dislocation. IMPRESSION: There is some osteoarthritis. No fracture.
--- NOTE | 2021-06-24 22:29 | XR ---
EXAMINATION TYPE: XR elbow complete RT DATE OF EXAM: 06/24/2021 COMPARISON: NONE HISTORY: Pain TECHNIQUE: 4 views FINDINGS: There is some spurring on the olecranon process of the ulna. I see no fracture no dislocati on. There is no sign of a joint effusion. Radial head is intact. IMPRESSION: There are some calcific tendinitis at the triceps tendon. No fracture seen.
[2021-06-24 23:54] VITALS: BP 149/88; PULSE 84; RESP 16
== END 2021-06-25 00:09 | disposition home or self-care (01) ==
LOC: EC 18:27
DX: S46.311A Strain of muscle, fascia and tendon of triceps, right arm, initial encounter (principal); S16.1XXA Strain of muscle, fascia and tendon at neck level, initial encounter; M25.521 Pain in right elbow; M25.511 Pain in right shoulder; E11.9 Type 2 diabetes mellitus without complications; Z88.8 Allergy status to other drugs, medicaments and biological substances; Z88.9 Allergy status to unspecified drugs, medicaments and biological substances; Z88.1 Allergy status to other antibiotic agents; Z88.0 Allergy status to penicillin; Z91.048 Other nonmedicinal substance allergy status
CPT/HCPCS: 72050; 73030; 73080; 99283; 96372; J1100; J1885

== ENCOUNTER → 2021-09-21 | Outpatient (CLI) | payer MEDICARE ==
--- NOTE | 2021-09-21 09:29 | CT ---
EXAMINATION TYPE: CT brain wo con DATE OF EXAM: 09/21/2021 COMPARISON: CT dated 07/08/2020 HISTORY: Dizziness, tinnitus CT DLP: 1090.40 mGycm Automated exposure control for dose reduction was used. TECHNIQUE: CT scan of the brain is performed without IV contrast administration. FINDINGS: Minimal bilateral cerebral white matter hypodensities, likely representing mild chronic microvascular ischemic changes. Scattered arterial atherosclerotic calcifications. No acute intracranial hemorrhage. No gross acute cortical infarct. No midline shift, herniation or ve ntriculomegaly. Unremarkable basal cisterns, sella and CP angles. No gross space-occupying lesion, vasogenic edema or mass effect. Unremarkable orbits. Complete opacification and chronic inflammatory changes of the right maxillary s inus. Clear mastoid air cells. Unremarkable calvarial bones. IMPRESSION: No acute intracranial abnormality or gross space-occupying lesion by this nonenhanced CT scan. Chroni c and incidental findings as described above.
== END | disposition home or self-care (01) ==
LOC: RADCTMAIN 06:55
PROVIDERS: ATTEND Family Medicine
DX: R42 Dizziness and giddiness (principal)
CPT/HCPCS: 70450

== ENCOUNTER → 2021-10-17 | Outpatient (CLI) | payer MEDICARE ==
[2021-10-17 19:01] LABS: ALT 24 U/L (10-49); AST 28 U/L (14-35); Chol/HDL Ratio 5.89 Ratio; LDL Cholesterol,Calculated 145.1 mg/dL (0.0-131.0)
== END | disposition home or self-care (01) ==
LOC: LABWHC1 10:58
PROVIDERS: ATTEND Internal Medicine Interventional Cardiology
DX: E78.2 Mixed hyperlipidemia (principal)
CPT/HCPCS: 36415; 80061; 84450; 84460

== ENCOUNTER → 2022-08-15 | Outpatient (CLI) | payer OTHER ==
--- NOTE | 2022-08-16 22:40 | US ---
EXAMINATION TYPE: US arterial LE multi level DATE OF EXAM: 08/15/2022 2:32 PM CLINICAL INDICATION: Male, 67 years old with history of I70.219 ARTERIES OF EXTRM; History of: Smoker: Yes Hypertension: Yes Diabetic: Yes Hyperlipidemia: Yes Previous Vascular Surgery: Stent in heart Doppler Waveforms: Right: Monophasic Left: Biphasic to monophasic Right Brachial Pressure: 132 Left Brachial Pressure: 141 Ankle-Brachial Indices: Right: 0.62 Left: 1.07 Toe Brachial Indices: Right: 0.25 Left: 0.50 Diminished right-sided [place]. Diminished bilateral TBI. IMPRESSION: At least moderate peripheral arterial disease in the right lower extremity and foot. At least mild peripheral arterial disease in the left foot. Further workup and follow-up advised.
== END | disposition home or self-care (01) ==
LOC: RADUSWWP 13:24
DX: I70.213 Atherosclerosis of native arteries of extremities with intermittent claudication, bilateral legs (principal); E78.5 Hyperlipidemia, unspecified; I10 Essential (primary) hypertension; E11.51 Type 2 diabetes mellitus with diabetic peripheral angiopathy without gangrene
CPT/HCPCS: 93923

== ENCOUNTER → 2023-02-17 | Outpatient (CLI) | payer OTHER | END | disposition home or self-care (01) | LOC: LABPAT 08:43 | PROVIDERS: ATTEND Anesthesiology | DX: Z01.812 Encounter for preprocedural laboratory examination (principal) | CPT/HCPCS: 86850; 86900; 86901 ==

== ENCOUNTER 2023-02-23 14:00 | Emergency (ER) | payer OTHER ==
[2023-02-23 14:49] LABS: Basophils # (A) 0.1 k/uL (0-0.2); Basophils % (A) 1 %; Eosinophils # (A) 0.3 k/uL (0-0.7); Eosinophils % (A) 3 %; HCT 47.1 % (39.0-53.0); Lymphocytes # (A) 2.1 k/uL (1.0-4.8); Lymphocytes % (A) 21 %; MCH 31.8 pg (25.0-35.0); MCHC 33.9 g/dL (31.0-37.0); MCV 93.6 fL (80.0-100.0); Mean Platelet Volume 7.4; Monocytes # (A) 0.6 k/uL (0-1.0); Monocytes % (A) 6 %; Neutrophils # (A) 6.6 k/uL (1.3-7.7); Neutrophils % (A) 66 %; Platelet Count 276 k/uL (150-450); RBC 5.03 m/uL (4.30-5.90); RDW 12.3 % (11.5-15.5); WBC 9.9 k/uL (3.8-10.6)
[2023-02-23 14:58] LABS: INR 0.9 (<1.2); Partial Thromboplastin Time 22.4 sec (22.0-30.0); Prothrombin Time 9.8 sec (10.0-12.5)
[2023-02-23 15:03] LABS: African American GFR (CKD) 89 (>60 ml/min/1.73 sqM); Anion Gap 9 mmol/L; Blood Urea Nitrogen 16 mg/dL (9-20); Calcium 10.1 mg/dL (8.4-10.2); Carbon Dioxide 23 mmol/L (22-30); Chloride 104 mmol/L (98-107); Glucose 134 mg/dL (74-99); Non-African American GFR(CKD) 77 (>60 ml/min/1.73 sqM); Potassium 4.6 mmol/L (3.5-5.1); Sodium 136 mmol/L (137-145)
[2023-02-23 15:12] LABS: NT-Pro-B-Type Natriuretic Pept 52 pg/mL
--- NOTE | 2023-02-23 15:32 | XR ---
EXAMINATION TYPE: XR chest 1V DATE OF EXAM: 02/23/2023 COMPARISON: 07/31/2020 HISTORY: Chest pain TECHNIQUE: Single frontal view of the chest is obtained. FINDINGS: There is no focal air space opacity, pleural effusion, or pneumothorax seen. The cardiac silhouette size is within normal limits. The osseous structures are intact. Status post cervical fu rekha. IMPRESSION: No acute process.
[2023-02-23] MEDS ORDERED: KETOROLAC 15 MG/ML 1 ML VIAL IVP STA (16:40)
[2023-02-23 17:23] LABS: Appearance,Urine Clear (Clear); Bilirubin,Urine Negative (Negative); Blood,Urine Negative (Negative); Color,Urine Light Yellow; Glucose,Urine (UA) 4+ (Negative); Ketones,Urine Negative (Negative); Leukocyte Esterase,Urine Negative (Negative); Nitrite,Urine Negative (Negative); PH, Urine 5.5 (5.0-8.0); Protein,Urine Negative (Negative); Urobilinogen,Urine <2.0 mg/dL (<2.0)
--- NOTE | 2023-02-23 18:03 | ED ---
URI HPI - General Chief Complaint: Upper Respiratory Infection Stated Complaint: Back Pain Time Seen by Provider: 02/23/23 14:15 Source: patient Mode of arrival: ambulatory Limitations: no limitations - History of Present Illness Initial Comments: 67-year-old male who presents emergency Department with complaints of upper respiratory infection as well as lower back pain. States septal symptoms started approximately 3 days ago. He admits to nasal congestion, nonproductive cough with chills. No shortness of breath or chest pain. No sick contacts with similar symptoms. He denies nausea, vomiting or diarrhea. He also admits to some lower lumbar back pain which starts in the central portion of his spine and radiates to both flanks. Denies any urinary complaints. No dysuria, hematuria or difficulty voiding. Denies diarrhea, constitutional, black or bloody stools. No saddle anesthesia. No incontinence. States he is supposed to have carotid endarterectomy today however had to cancel his surgery due to his reported upper respiratory symptoms. He went into urgent care who transferred him over to our facility as he did report history of kidney stones in the could not evaluate the patient for such. No other alleviating, precipitating or modifying factors - Related Data Home Medications Medication Instructions Recorded Confirmed Dextroamphetamine/Amphetamine 20 mg PO DAILY 05/22/16 02/16/23 [Adderall] Empagliflozin [Jardiance] 25 mg PO DAILY 02/16/23 02/16/23 Ezetimibe [Zetia] 10 mg PO DAILY 02/16/23 02/16/23 Metoprolol Tartrate [Lopressor] 12.5 mg PO BID 02/16/23 02/16/23 Naproxen [Naprosyn] 500 mg PO BID 02/16/23 02/16/23 Rosuvastatin [Crestor] 20 mg PO DAILY 02/16/23 02/16/23 Previous Rx's Medication Instructions Recorded Aspirin 81 mg PO DAILY #0 chew 05/12/20 Lidocaine 5% Patch [Lidoderm] 1 each TP DAILY #25 patch 02/23/23 Allergies Allergy/AdvReac Type Severity Reaction Status Date / Time duloxetine [From Cymbalta] Allergy Severe throat Verified 02/23/23 14:18 swelling, could not swallow prochlorperazine Allergy Severe states Verified 02/23/23 14:18 [From Compazine] "tongue stuck out and body stiffened" acyclovir Allergy Swelling Verified 02/23/23 14:18 levofloxacin [From Levaquin] Allergy Swelling Verified 02/23/23 14:18 Penicillins Allergy Swelling Verified 02/23/23 14:18 poison dylon extract Allergy generalized Verified 02/23/23 14:18 blisters and pain-goes ER poison oak extract Allergy generalized Verified 02/23/23 14:18 blisters and pain-goes ER poison sumac extract Allergy generalized Verified 02/23/23 14:18 blisters and pain-goes ER pregabalin [From Lyrica] AdvReac can't Verified 02/23/23 14:18 walk, muscle and joint pain Review of Systems ROS Statement: Those systems with pertinent positive or pertinent negative responses have been documented in the HPI. ROS Other: All systems not noted in ROS Statement are negative. 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 for 2 years @ [facility] in [place], Dec 2022 prednisone taper dose, states frequent UTI, urine has foul odor due to side effect to jardiance,covid inf ection 2020 Last Myocardial Infarction Date:: 2020 History of Any Multi-Drug Resistant Organisms: None Reported Past Surgical History: Heart Catheterization With Stent, Joint Replacement, Orthopedic Surgery Additional Past Surgical History / Comment(s): cervical fusion, faustina hip replacement, septoplasty, arthroscopy rt knee Past Anesthesia/Blood Transfusion Reactions: No Reported Reaction Additional Past Anesthesia/Blood Transfusion Reaction / Comment(s): sever alg compazine. no hx blood transfusion Date of Last Stent Placement:: 05/10/2020 Past Psychological History: ADD/ADHD Smoking Status: Current some day smoker Past Alcohol Use History: None Reported Past Drug Use History: None Reported - Past Family History Mother Family Medical History: Cancer, Deep Vein Thrombosis (DVT) General Exam Limitations: no limitations General appearance: alert, in no apparent distress Head exam: Present: atraumatic, normocephalic, normal inspection Eye exam: Present: normal appearance, PERRL, EOMI. Absent: scleral icterus, conjunctival injection, periorbital swelling ENT exam: Present: normal exam, mucous membranes moist Neck exam: Present: normal inspection. Absent: tenderness, meningismus, lymphadenopathy Respiratory exam: Present: normal lung sounds bilaterally. Absent: respiratory distress, wheezes, rales, rhonchi, stridor Cardiovascular Exam: Present: regular rate, normal rhythm, normal heart sounds. Absent: systolic murmur, diastolic murmur, rubs, gallop, clicks GI/Abdominal exam: Present: soft, normal bowel sounds. Absent: distended, tenderness, guarding, rebound, rigid Extremities exam: Present: normal inspection, full ROM, normal capillary refill. Absent: tenderness, pedal edema, joint swelling, calf tenderness Back exam: Present: paraspinal tenderness Neurological exam: Present: alert, oriented X3, CN II-XII intact Psychiatric exam: Present: normal affect, normal mood Skin exam: Present: warm, dry, intact, normal color. Absent: rash Course Vital Signs 02/23/23 02/23/23 02/23/23 14:13 16:11 18:00 Temperature 97.6 F Pulse Rate 78 78 73 Respiratory 18 20 18 Rate Blood Pressure 121/76 154/80 141/74 O2 Sat by Pulse 98 98 Oximetry 02/23/23 02/23/23 02/23/23 19:00 20:00 20:24 Temperature 97.9 F Pulse Rate 61 76 80 Respiratory 18 18 18 Rate Blood Pressure 129/85 124/64 117/81 O2 Sat by Pulse 96 Oximetry Medical Decision Making - Medical Decision Making Was pt. sent in by a medical professional or institution (, PA, WIND FARM SUPPORT SPECIALIST, urgent care, hospital, or chcf...) When possible be specific @ -[facility] urgent care Did you speak to anyone other than the patient for history (EMS, parent, family, police, friend...)? What history was obtained from this source @ -No Did you review nursing and triage notes (agree or disagree)? Why? @ -I reviewed and agree with nursing and triage notes Were old charts reviewed (outside hosp., previous admission, EMS record, old EKG, old radiological studies, urgent care reports/EKG's, chcf records)? Report findings @ -No old charts were reviewed Differential Diagnosis (chest pain, altered mental status, abdominal pain women, abdominal pain men, vaginal bleeding, weakness, fever, dyspnea, syncope, hea dache, dizziness, GI bleed, back pain, seizure, CVA, palpatations, mental health, musculoskeletal)? @ -Differential Back Pain: Strain, zoster, cauda equina syndrome, epidural abscess, vertebral osteomyelitis, discitis, fracture, subluxation, disc herniation, DJD, spinal stenosis, dissection, AAA, pancreatitis, peptic ulcer disease, pyelonephritis, kidney stone, this is not meant to be an all-inclusive list. EKG interpreted by me (3pts min.). @ -Yes and demonstrates sinus rhythm rate of 73. GA interval 189. QRS 77. QTC 397. No acute ST segment elevations or depressions X-rays interpreted by me (1pt min.). @ -Yes and demonstrates no acute intrathoracic process CT interpreted by me (1pt min.). @ -Yes and demonstrates no acute intra-abdominal process U/S interpreted by me (1pt. min.). @ -None done What testing was considered but not performed or refused? (CT, X-rays, U/S, labs)? Why? @ -None What meds were considered but not given or refused? Why? @ -Pain medications however patient refused Did you discuss the management of the patient with other professionals (professionals i.e. , PA, WIND FARM SUPPORT SPECIALIST, lab, RT, psych nurse, healthcare social worker, tube roller, teacher, special officer automat, upper caser)? Give summary @ -No Was smoking cessation discussed for >3mins.? @ -No Was critical care preformed (if so, how long)? @ -No Were there social determinants of health that impacted care today? How? (Homelessness, low income, unemployed, alcoholism, drug addiction, transportation, low edu. Level, literacy, decrease access to med. care, residential, rehab)? @ -No Was there de-escalation of care discussed even if they declined (Discuss DNR or withdrawal of care, Hospice)? DNR status @ -No What co-morbidities impacted this encounter? (DM, HTN, Smoking, COPD, CAD, Cancer, CVA, ARF, Chemo, Hep., AIDS, mental health diagnosis, sleep apnea, morbid obesity)? @ -Nephrolithiasis Was patient admitted / discharged? Hospital course, mention meds given and route, prescriptions, significant lab abnormalities, going to OR and other pertinent info. @ -Upon arrival the patient placed in room 25. Thorough history and physical exam was performed. Laboratory studies were conducted. Chest x-rays performed. Patient does go for CT of his abdomen and pelvis. Results are discussed the patient. I did discuss diagnosis, differential treatment options. Patient refusing muscle relaxer and pain medications. Satisfied with his workup. He'll be discharged home at this time. Instructed to call to reschedule his surgery. May take NSAIDs for his back pain. I will prescribe Lidoderm patches. He is to follow-up with his primary care doctor to 4 days and return for any new or worsening symptoms. Patient agreeable to plan and was discharged in stable condition Undiagnosed new problem with uncertain prognosis? @ -Yes Drug Therapy requiring intensive monitoring for toxicity (Heparin, Nitro, Insulin, Cardizem)? @ -No Were any procedures done? @ -No Diagnosis/symptom? @ -Acute cough, acute upper respiratory infection, paraspinal lumbar back pain Acute, or Chronic, or Acute on Chronic? @ -Acute Uncomplicated (without systemic symptoms) or Complicated (systemic symptoms)? @ -Complicated Side effects of treatment? @ -No Exacerbation, Progression, or Severe Exacerbation? @ -No Poses a threat to life or bodily function? How? (Chest pain, USA, GA, pneumonia, PE, COPD, DKA, ARF, appy, cholecystitis, CVA, Diverticulitis, Homicidal, Suicidal, threat to staff... and all critical care pts) @ -No - Lab Data Result diagrams: 02/23/23 14:21 02/23/23 14:21 Lab Results 02/23/23 02/23/23 02/23/23 Range/Units 14:21 14:21 14:21 WBC 9.9 (3.8-10.6) k/uL RBC 5.03 (4.30-5.90) m/uL Hgb 16.0 (13.0-17.5) gm/dL Hct 47.1 (39.0-53.0) % MCV 93.6 (80.0-100.0) fL MCH 31.8 (25.0-35.0) pg MCHC 33.9 (31.0-37.0) g/dL RDW 12.3 (11.5-15.5) % Plt Count 276 (150-450) k/uL MPV 7.4 Neutrophils % 66 % Lymphocytes % 21 % Monocytes % 6 % Eosinophils % 3 % Basophils % 1 % Neutrophils # 6.6 (1.3-7.7) k/uL Lymphocytes # 2.1 (1.0-4.8) k/uL Monocytes # 0.6 (0-1.0) k/uL Eosinophils # 0.3 (0-0.7) k/uL Basophils # 0.1 (0-0.2) k/uL PT (10.0-12.5) sec INR (<1.2) APTT (22.0-30.0) sec Sodium 136 L (137-145) mmol/L Potassium 4.6 (3.5-5.1) mmol/L Chloride 104 (98-107) mmol/L Carbon Dioxide 23 (22-30) mmol/L Anion Gap 9 mmol/L BUN 16 (9-20) mg/dL Creatinine 1.00 (0.66-1.25) mg/dL Est GFR (CKD-EPI)AfAm 89 (>60 ml/min/1.73 sqM) Est GFR (CKD-EPI)NonAf 77 (>60 ml/min/1.73 sqM) Glucose 134 H (74-99) mg/dL Calcium 10.1 (8.4-10.2) mg/dL Magnesium 2.0 (1.6-2.3) mg/dL Troponin I <0.012 (0.000-0.034) ng/mL NT-Pro-B Natriuret Pep 52 pg/mL Urine Color Urine Appearance (Clear) Urine pH (5.0-8.0) Ur Specific [place] (1.001-1.035) Urine Protein (Negative) Urine Glucose (UA) (Negative) Urine Ketones (Negative) Urine Blood (Negative) Urine Nitrite (Negative) Urine Bilirubin (Negative) Urine Urobilinogen (<2.0) mg/dL Ur Leukocyte Esterase (Negative) Influenza Type A (PCR) (Not Detectd) Influenza Type B (PCR) (Not Detectd) RSV (PCR) (Not Detectd) SARS-CoV-2 (PCR) (Not Detectd) 02/23/23 02/23/23 02/23/23 Range/Units 14:21 14:21 16:56 WBC (3.8-10.6) k/uL RBC (4.30-5.90) m/uL Hgb (13.0-17.5) gm/dL Hct (39.0-53.0) % MCV (80.0-100.0) fL MCH (25.0-35.0) pg MCHC (31.0-37.0) g/dL RDW (11.5-15.5) % Plt Count (150-450) k/uL MPV Neutrophils % % Lymphocytes % % Monocytes % % Eosinophils % % Basophils % % Neutrophils # (1.3-7.7) k/uL Lymphocytes # (1.0-4.8) k/uL Monocytes # (0-1.0) k/uL Eosinophils # (0-0.7) k/uL Basophils # (0-0.2) k/uL PT 9.8 L (10.0-12.5) sec INR 0.9 (<1.2) APTT 22.4 (22.0-30.0) sec Sodium (137-145) mmol/L Potassium (3.5-5.1) mmol/L Chloride (98-107) mmol/L Carbon Dioxide (22-30) mmol/L Anion Gap mmol/L BUN (9-20) mg/dL Creatinine (0.66-1.25) mg/dL Est GFR (CKD-EPI)AfAm (>60 ml/min/1.73 sqM) Est GFR (CKD-EPI)NonAf (>60 ml/min/1.73 sqM) Glucose (74-99) mg/dL Calcium (8.4-10.2) mg/dL Magnesium (1.6-2.3) mg/dL Troponin I (0.000-0.034) ng/mL NT-Pro-B Natriuret Pep pg/mL Urine Color Light Yellow Urine Appearance Clear (Clear) Urine pH 5.5 (5.0-8.0) Ur Specific [place] 1.030 (1.001-1.035) Urine Protein Negative (Negative) Urine Glucose (UA) 4+ H (Negative) Urine Ketones Negative (Negative) Urine Blood Negative (Negative) Urine Nitrite Negative (Negative) Urine Bilirubin Negative (Negative) Urine Urobilinogen <2.0 (<2.0) mg/dL Ur Leukocyte Esterase Negative (Negative) Influenza Type A (PCR) Not Detected (Not Detectd) Influenza Type B (PCR) Not Detected (Not Detectd) RSV (PCR) Not Detected (Not Detectd) SARS-CoV-2 (PCR) Not Detected (Not Detectd) Disposition Clinical Impression: Back pain, URI (upper respiratory infection) Disposition: HOME SELF-CARE Condition: Stable Instructions (If sedation given, give patient instructions): Upper Respiratory Infection (ED), Flank Pain (ED) Additional Instructions: Follow-up with your doctor and return for any new or worsening symptoms Prescriptions: Lidocaine 5% Patch [Lidoderm] 1 each TP DAILY #25 patch Is patient prescribed a controlled substance at d/c from ED?: No Referrals: Reuben Nicholson MD [Primary Care Provider] - 1-2 days Time of Disposition: 20:14
--- NOTE | 2023-02-23 19:44 | CT ---
EXAMINATION TYPE: CT abdomen pelvis wo con CT DLP: 922 mGycm, Automated exposure control for dose reduction was used. DATE OF EXAM: 02/23/2023 5:45 PM COMPARISON: None. CLINICAL INDICATION:Male, 67 years old with history of flank pain, hx kidney stones; Flank pain, hx o f renal stones. TECHNIQUE: Axial CT of the abdomen and pelvis. Sagittal and coronal reformats were created on a [employer] workstation. Contrast used: mL of , (none if empty) Oral contrast used: without Oral Contrast (none if empty) FINDINGS: LOWER CHEST: Mild left basilar subsegmental atelectasis. Heart is not enlarged. Trace pericardial flu id. Moderate to heavy calcifications throughout the coronary arteries. Some calcifications of the aor tic valve and proximal aorta. ABDOMEN LIVER: Unremarkable GALLBLADDER AND BILE DUCTS: Unremarkable. PANCREAS: Unremarkable. SPLEEN: Unremarkable. ADRENAL GLANDS: Unremarkable. KIDNEYS AND URETERS: There are nonobstructing renal calculi bilaterally. On the right, 2.8 mm in the upper pole, and punctate in the lower pole. On the left, 4.9 mm in the upper pole and punctate in the lower pole. Suspect a dromedary hump of the left kidney. No ureteral calculi or hydroureteronephrosi s. PELVIS Limited assessment due to beam hardening artifact from bilateral hip arthroplasties. BLADDER: Grossly unremarkable. REPRODUCTIVE: Not visualized. ABDOMEN & PELVIS STOMACH AND BOWEL: Stomach and small bowel are nondistended, no evidence of obstruction. Unremarkable appendix. Moderate stool throughout the colon without focal inflammatory process seen. Several colo joshua diverticula, mostly in the sigmoid, without clear evidence of diverticulitis. PERITONEUM/RETROPERITONEUM: No evidence of pneumoperitoneum or free fluid. VASCULATURE: Moderate atherosclerotic calcifications are present throughout the abdominal aorta and i ts branches. No evidence of aortic aneurysm. 2 areas of ectasia of the infrarenal aorta, more superio rly 3.1 cm and more inferiorly 2.5 cm. Calcifications throughout the iliac arterial trees. MUSCULOSKELETAL: No acute osseous abnormalities. Moderate disc degeneration changes are present throu ghout the thoracolumbar spine. Bilateral hip arthroplasties. LYMPH NODES: No gross evidence for lymphadenopathy. SOFT TISSUE/ABDOMINAL WALL: No acute abnormality. Moderate sized fat-containing left inguinal hernia. IMPRESSION: 1. Bilateral renal calculi. No evidence of ureteral calculi or hydronephrosis. 2. No other acute process demonstrated in the limits of unenhanced exam. 3. Colonic diverticular disease without evidence of diverticulitis. 4. Other chronic and likely incidental findings, as described above.
[2023-02-23] MEDS ORDERED: LIDOCAINE 5% PATCH TOPICAL STA (20:11)
[2023-02-23 20:40] VITALS: BP 117/81; PULSE 80; RESP 18; TEMP 97.9
== END 2023-02-23 20:32 | disposition home or self-care (01) ==
LOC: EC 14:00
DX: K57.30 Diverticulosis of large intestine without perforation or abscess without bleeding (principal); J06.9 Acute upper respiratory infection, unspecified; M54.50 Low back pain, unspecified; N20.0 Calculus of kidney; E11.9 Type 2 diabetes mellitus without complications; G47.30 Sleep apnea, unspecified; I25.10 Atherosclerotic heart disease of native coronary artery without angina pectoris; I25.2 Old myocardial infarction; M19.90 Unspecified osteoarthritis, unspecified site; F17.200 Nicotine dependence, unspecified, uncomplicated; Z79.84 Long term (current) use of oral hypoglycemic drugs; Z79.899 Other long term (current) drug therapy; Z86.16 Personal history of COVID-19; Z88.0 Allergy status to penicillin; Z88.1 Allergy status to other antibiotic agents; Z88.8 Allergy status to other drugs, medicaments and biological substances; Z20.822 Contact with and (suspected) exposure to COVID-19
CPT/HCPCS: 96374; 99284; 36415; 93005; 83880; 80048; 83735; 84484; 85025; 85610; 85730; 81003; 87636; 71045; 74176; J1885

== ENCOUNTER → 2023-04-24 | Outpatient (CLI) | payer OTHER ==
[2023-04-24 16:55] LABS: Basophils # (A) 0.07 X 10*3/uL (0.00-0.10); Eosinophils # (A) 0.19 X 10*3/uL (0.04-0.35); Eosinophils % (A) 2.7 %; HCT 43.7 % (39.6-50.0); HGB 14.8 g/dL (13.0-17.0); Lymphocytes # (A) 2.47 X 10*3/uL (0.90-5.00); Lymphocytes % (A) 35.4 %; MCH 30.6 pg (27.0-32.0); MCHC 33.9 g/dL (32.0-37.0); MCV 90.3 FL (80.0-97.0); Mean Platelet Volume 10.2 FL (9.5-12.2); Monocytes # (A) 0.65 X 10*3/uL (0.20-1.00); Monocytes % (A) 9.3 %; NRBC Per 100 WBC 0 X 10*3/uL (0.00-0.01); Neutrophils # (A) 3.59 X 10*3/uL (1.80-7.70); Neutrophils % (A) 51.5 %; Platelet Count 250 X 10*3/uL (140-440); RBC 4.84 X 10*6/uL (4.40-5.60); RDW 12.5 % (11.5-14.5); WBC 6.98 X 10*3/uL (4.50-10.00)
== END | disposition home or self-care (01) ==
LOC: LABPAT 13:53
PROVIDERS: ATTEND Anesthesiology
DX: Z01.812 Encounter for preprocedural laboratory examination (principal); I65.29 Occlusion and stenosis of unspecified carotid artery
CPT/HCPCS: 36415; 85025; 86850; 86900; 86901

== ENCOUNTER 2023-04-30 05:35 | Inpatient (IN) | payer OTHER ==
[2023-04-30] MEDS ORDERED: HYDROmorphone 0.5 MG/0.5 ML SYRINGE IVP PRN (06:07)
[2023-04-30] MEDS ORDERED: LIDOCAINE 1% (10MG/ML) FOR IV START INTRADERMA PRN (06:07)
[2023-04-30] MEDS: LACTATED RINGERS 1,000 ML IV ONE ×3 (06:40→10:00)
[2023-04-30 06:44] LABS: Glucose,Whole Blood 147 mg/dL (70-110)
[2023-04-30] MEDS: ONDANSETRON 4 MG/2 ML VIAL IVP ONE ×2 (06:48→15:19)
[2023-04-30] MEDS: MIDAZOLAM 2 MG/2 ML VIAL IVP ONE (06:49)
[2023-04-30] MEDS: DEXAMETHASONE SOD PHOSPHATE 4 MG/ML 1 ML VIAL IVP ONE (06:54)
--- NOTE | 2023-04-30 07:14 | P.ANPRN ---
Procedure Note - Anesthesia - Invasive Line Left Arterial Line Time Out Performed: Yes Date of Procedure: 04/30/23 Time of Procedure: 06:45 Location of Patient: PreOp Preparation: Sterile Prep Arterial Line Location: Radial Ultrasound Used: No Narrative: Central line placement per sterile protocol utilized. 22 G needle. AttemptX1
[2023-04-30] MEDS ORDERED: HEPARIN SODIUM,PORCINE 10,000 UNIT/ML 1 ML VIAL ONE (07:26)
[2023-04-30] MEDS ORDERED: ePHEDrine 50 MG/ML 1 ML VIAL ONE (07:26)
[2023-04-30] MEDS ORDERED: PROPOFOL 10 MG/ML 20 ML VIAL IV ONE (07:26)
[2023-04-30] MEDS ORDERED: MIDAZOLAM 2 MG/2 ML VIAL ONE (07:26)
[2023-04-30] MEDS ORDERED: PHENYLEPHRINE 10 MG/ML VIAL ONE (07:26)
[2023-04-30] MEDS ORDERED: ROCURONIUM 10 MG/ML (5 ML VIAL) IV ONE (07:26)
[2023-04-30] MEDS ORDERED: LIDOCAINE 1% INJ 10MG/ML (20 ML MDV) ONE (07:26)
[2023-04-30] MEDS ORDERED: HYDROmorphone (PF) 1 MG/ML ONE (07:26)
[2023-04-30] MEDS ORDERED: GLYCOPYRROLATE 0.2 MG/ML 2 ML VIAL ONE (07:26)
[2023-04-30] MEDS ORDERED: VASOPRESSIN 20 UNIT/ML 1 ML VIAL ONE (07:26)
[2023-04-30] MEDS ORDERED: fentaNYL (PF) 50 MCG/ML 2 ML AMP ONE (07:26)
[2023-04-30] MEDS: GELATIN SPONGE,ABSORB (LARGE) 1 EACH SPONGE TOPICAL ONE ×2 (07:59→08:59)
[2023-04-30] MEDS: THROMBIN (BOVINE) 5,000 UNIT VIAL TOPICAL ONE ×2 (07:59→08:59)
[2023-04-30] MEDS: LIDOCAINE 1% INJ 10MG/ML (20 ML MDV) SQ ONE (07:59)
--- NOTE | 2023-04-30 10:15 | P.OP ---
Date of Procedure: 04/30/23 Preoperative Diagnosis: Symptomatic right ICA stenosis >90% Postoperative Diagnosis: Same Procedure(s) Performed: Right carotid endarterectomy with patch angioplasty Cerebral oximetry monitoring Anesthesia: RAYNAA Surgeon: Amadou Barrett Estimated Blood Loss (ml): 10 Pathology: none sent Condition: stable Disposition: PACU Indications for Procedure: 68-year-old gentleman with history of right internal carotid artery stenosis greater than 90% seen on MRA during his workup from neurology secondary to possible TIA. He has had left upper extremity numbness as well as vision changes on the right secondary to possible TIAs. He presents today for right carotid endarterectomy and patch angioplasty. Operative Findings: High lesion with severe calcification and greater than 90% subtotal occlusion Description of Procedure: An oblique incision was then created just anterior to the sternocleidomastoid musculature with a 10 blade scalpel and dissection was carried down to the carotid sheath. The carotid sheath was then entered after facial vein was located and suture ligated in normal fashion. The common carotid, internal carotid, external carotid and superior thyroid arteries were located and dissected free in a meticulous fashion circumferentially and controlled with vessel loops. Attention was then placed to locating the vagus nerve as well as hypoglossal nerve which were both spared. Once controlled patient was administered heparin and followed with ACTs for appropriate heparinization. Once ACT was above 200 the proximal and distal aspects of the dissection were then controlled with vascular clamps. Arteriotomy was then created with 11 blade scalpel and extended with Herrmann Dominguez scissors. Utilizing pressure tubing stump pressures were obtained and were 64. No shunt was required and endarterectomy was then performed with a [place] and elevator. The plaque was then feathered at the distal aspect and the internal carotid artery and removed. The area was copiously irrigated with heparinized saline and all free debris was removed. A 7-0 Prolene suture was then placed to tack the distal aspect of the dissection at the internal carotid artery. A 0.8 x 8 cm bovine pericardial patch was then chosen and patch angioplasty was performed with 6-0 Prolene suture in a running fashion. Prior to last sutures being placed the inflow was released flushing any free debris out of the patch. This was reclamped and the internal carotid artery was released revealing good brisk flow and was once again reclamped. The external carotid and superior thyroid artery were then released followed by the common carotid artery to allow any free debris to be flushed into the external system. Final sutures were placed and secured. Internal carotid artery control was then released. Good pulsatile flow was note d through the patch and a Doppler was utilized demonstrating good brisk flow into the internal, external carotid arteries without any signs of obstruction. Hemostasis was then assured with Gelfoam and thrombin. A 10-Turkmen TÑOA drain was then placed in normal fashion and secured with 3-0 nylon suture. The incision was then closed in a multilayer fashion after hemostasis was assured. The skin was then cleansed and dressings were placed. Patient tolerated the procedure well and was following commands and moving all extremities. Patient was then sent to PACU for recovery.
[2023-04-30] MEDS ORDERED: MAG HYDROX/AL HYDROX/SIMETH 30 ML CUP PO PRN (10:16)
[2023-04-30] MEDS ORDERED: TRIMETHOBENZAMIDE 100 MG/ML 2 ML VIAL IM PRN (10:16)
[2023-04-30] MEDS ORDERED: ACETAMINOPHEN TAB 325 MG TAB PO PRN (10:16)
[2023-04-30] MEDS ORDERED: NAPROXEN 250 MG TAB PO PRN (10:18)
[2023-04-30 10:39] LABS: Glucose,Whole Blood 246 mg/dL (70-110)
[2023-04-30] MEDS: HYDROcodone/APAP 5-325MG 1 EACH TAB PO PRN (13:24)
[2023-04-30 13:35] LABS: Glucose,Whole Blood 216 mg/dL (70-110)
[2023-04-30] MEDS: INSULIN ASPART (NovoLOG) 100 UNIT/ML VIAL SQ ONE (13:55)
[2023-04-30] MEDS: BENZOCAINE/MENTHOL LOZENG 1 EACH LOZENGE MUCOUS MEM PRN (14:20)
[2023-04-30] MEDS: DEXAMETHASONE SOD PHOSPHATE 4 MG/ML 1 ML VIAL IV ONE (15:19)
[2023-04-30] MEDS: droPERidol 5 MG/2 ML VIAL IVP ONE (15:19)
[2023-04-30] MEDS: LACTATED RINGERS 1,000 ML IV SCH ×2 (20:01→20:02)
[2023-04-30] MEDS ORDERED: DEXTROSE 50% SYRINGE 50 ML IVP PRN ×2 (20:30)
[2023-04-30 20:40] LABS: Glucose,Whole Blood 260 mg/dL (70-110)
[2023-04-30] MEDS: INSULIN ASPART (NovoLOG) 100 UNIT/ML VIAL SQ SCH (20:46)
[2023-04-30] MEDS: METOPROLOL TARTRATE 12.5 MG TAB PO SCH (20:46)
[2023-05-01] MEDS: MORPHINE SULFATE 2 MG/ML SYRINGE IVP PRN (02:43)
[2023-05-01 05:48] LABS: Glucose,Whole Blood 257 mg/dL (70-110)
[2023-05-01] MEDS: CLOPIDOGREL 75 MG TAB PO SCH (08:08)
[2023-05-01] MEDS: ASPIRIN 81 MG PO SCH (08:08)
[2023-05-01] MEDS: ATORVASTATIN 40 MG TAB PO SCH (08:08)
[2023-05-01] MEDS: NON FORMULARY DRUG (Dextroamphetamine/Amphetamine [Adderall] 20 MG Tablet) PO SCH (08:08)
[2023-05-01] MEDS: DAPAGLIFLOZIN PROPANEDIOL 10 MG TABLET PO SCH (08:08)
[2023-05-01] MEDS: TAMSULOSIN 0.4 MG CAP.ER.24H PO SCH (08:08)
--- NOTE | 2023-05-01 08:34 | P.CONS ---
History of Present Illness - Reason for Consult Consult date: 05/01/23 medical management - Chief Complaint right endarterectomy - History of Present Illness This is a 68-year-old male who underwent a right total endarterectomy yesterday with Dr. Barrett after it was found he had a 90% blockage of the right carotid. Patient tolerated procedure well. He is still complaining of some mild weakness on his left side. He has also had some urinary retention and required straight catheterizations throughout the night. Flomax has been ordered for this morning. He has not had a bowel movement since the day before surgery. He is tolerating diet and reports pain is well-controlled. Past medical history as noted below. Review of Systems Constitutional: Denies chills, Denies fever Cardiovascular: Denies chest pain, Denies dyspnea on exertion Respiratory: Denies cough, Denies dyspnea Gastrointestinal: Denies abdominal pain, Denies nausea, Denies vomiting Genitourinary: Reports urinary retention Musculoskeletal: Denies arm numbness/tingling, Denies leg numbness/tingling Neurological: Reports weakness, Denies headaches Past Medical History Past Medical History: Coronary Artery Disease (CAD), Diabetes Mellitus, Hyperlipidemia, Myocardial Infarction ([place]), Neurologic Disorder, Osteoarthritis (OA), Skin Disorder, Sleep Apnea/CPAP/BIPAP Additional Past Medical History / Comment(s): carotid stenosis, hx childhood asthma, has c pap does not use, rosacea, stroke like episode from reaction to compazine(effected vision and hearing), varicose veins, hx kidney stones, "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 frequent UTI, covid infection 2021, this surgery was cancelled in Jan.-sick w/URI & cough-all resolved Last Myocardial Infarction Date:: 2020 History of Any Multi-Drug Resistant Organisms: None Reported Past Surgical History: Heart Catheterization With Stent, Joint Replacement, Orthopedic Surgery Additional Past Surgical History / Comment(s): cervical fusion, faustina hip replacement, septoplasty, arthroscopy rt knee Past Anesthesia/Blood Transfusion Reactions: No Reported Reaction Additional Past Anesthesia/Blood Transfusion Reaction / Comm: jessica reddy ne. no hx blood transfusion Date of Last Stent Placement:: 05/10/2020 Smoking Status: Current some day smoker - Past Family History Mother Family Medical History: Cancer, Deep Vein Thrombosis (DVT) Medications and Allergies Home Medications Medication Instructions Recorded Confirmed Type Dextroamphetamine/Amphetamine 20 mg PO DAILY 05/22/16 04/30/23 History [Adderall] Aspirin 81 mg PO DAILY #0 chew 05/12/20 04/30/23 Rx Empagliflozin [Jardiance] 25 mg PO DAILY 02/16/23 04/30/23 History Metoprolol Tartrate [Lopressor] 12.5 mg PO BID 02/16/23 04/30/23 History Naproxen [Naprosyn] 500 mg PO BID PRN 02/16/23 04/30/23 History Rosuvastatin [Crestor] 20 mg PO DAILY 02/16/23 04/30/23 History Fluticasone Nasal [place] [Flonase 2 spray EA NOSTRIL DAILY 04/23/23 04/30/23 History Nasal [place]] Allergies Allergy/AdvReac Type Severity Reaction Status Date / Time duloxetine [From Cymbalta] Allergy Severe throat Verified 04/30/23 06:30 swelling, could not swallow prochlorperazine Allergy Severe states Verified 04/30/23 06:30 [From Compazine] "tongue stuck out and body stiffened" acyclovir Allergy Swelling Verified 04/30/23 06:30 levofloxacin [From Levaquin] Allergy Swelling Verified 04/30/23 06:30 Penicillins Allergy Swelling Verified 04/30/23 06:30 poison dylon extract Allergy generalized Verified 04/30/23 06:30 blisters and pain-goes ER poison oak extract Allergy generalized Verified 04/30/23 06:30 blisters and pain-goes ER poison sumac extract Allergy generalized Verified 04/30/23 06:30 blisters and pain-goes ER pregabalin [From Lyrica] AdvReac can't Verified 04/30/23 06:30 walk, muscle and joint pain Physical Exam Vitals: Vital Signs Temp Pulse Pulse Resp BP BP Pulse Ox 05/01/23 08:00 97.6 F 57 L 16 144/65 05/01/23 03:28 97.9 F 59 L 19 140/63 95 05/01/23 00:00 97.9 F 73 19 145/64 94 L 04/30/23 21:16 97.9 F 70 19 116/63 95 04/30/23 17:16 72 16 116/62 94 L 04/30/23 15:16 97.4 F L 71 16 123/64 95 04/30/23 14:45 74 16 128/57 95 04/30/23 14:00 75 115/64 96 04/30/23 13:30 72 16 124/62 95 04/30/23 13:00 74 18 140/66 96 04/30/23 12:33 76 16 132/63 95 04/30/23 12:18 76 16 130/63 96 04/30/23 12:03 73 18 138/68 95 04/30/23 11:48 69 16 133/67 95 04/30/23 11:33 66 16 132/65 94 L 04/30/23 11:18 62 16 143/67 96 04/30/23 11:03 62 16 145/69 94 L 04/30/23 10:48 57 L 16 144/69 98 04/30/23 10:33 69 16 148/69 99 04/30/23 10:18 97 F L 75 13 162/73 143/63 Intake and Output 04/30/23 05/01/23 05/01/23 22:59 06:59 14:59 Output Total 1250 1730 Balance -1250 -1730 Output: Drainage 0 30 Neck 0 30 Urine 1250 1700 Straight 1250 1700 Results Labs: Abnormal Lab Results - Last 24 Hours (Table) 04/30/23 04/30/23 04/30/23 Range/Units 10:36 13:33 20:39 POC Glucose (mg/dL) 246 H 216 H 260 H (70-110) mg/dL 05/01/23 Range/Units 05:45 POC Glucose (mg/dL) 257 H (70-110) mg/dL Assessment and Plan (1) Carotid stenosis, bilateral Current Visit: Yes Status: Acute Code(s): I65.23 - OCCLUSION AND STENOSIS OF BILATERAL CAROTID ARTERIES SNOMED Code(s): 857773982 (2) CAD (coronary artery disease) Current Visit: No Status: Acute Code(s): I25.10 - ATHSCL HEART DISEASE OF [place] CORONARY ARTERY W/O ANG PCTRS SNOMED Code(s): 24800318 (3) Attention deficit disorder Current Visit: No Status: Acute Code(s): F98.8 - OTH BEHAV/EMOTN DISORD W ONSET USLY OCCUR IN CHLDHD AND ADOL SNOMED Code(s): 01823107 (4) Urinary retention Current Visit: Yes Status: Acute Code(s): R33.9 - RETENTION OF URINE, UNSPECIFIED SNOMED Code(s): 189309953 (5) Diabetes mellitus Current Visit: Yes Status: Acute Code(s): E11.9 - TYPE 2 DIABETES MELLITUS WITHOUT COMPLICATIONS SNOMED Code(s): 92610798 (6) Atherosclerosis of [place] arteries of extremities with intermittent claudication, bilateral legs Current Visit: Yes Status: Acute Code(s): I70.213 - ATHSCL [place] ARTERIES OF EXTRM W INTRMT SCOOTER, BI LEGS SNOMED Code(s): 62666264821693084 Plan: May continue home medications. Continue to monitor urinary retention Continue to follow surgeon's postop instructions Patient seen and evaluated by nurse practitioner, physician in agreement with plan
--- NOTE | 2023-05-01 09:00 | P.PN ---
Progress Note - Text Progress Note Date: 05/01/23 I spoke with the vascular surgery N.P. and she notified me that patient had vascular surgery for carotid yesterday and it seems he has dysphagia since yesterday. She stated a code stroke is activated. CT head, CTA head and neck is ordered. I notified her to pursue MRI Brain if CT is negative.
--- NOTE | 2023-05-01 09:16 | CT ---
EXAMINATION TYPE: CODE STROKE: CT brain wo contr CT DLP: 1142.2 mGycm, Automated exposure control for dose reduction was used. DATE OF EXAM: 05/01/2023 9:08 AM COMPARISON: Prior CT Brain from 09/21/2021. CLINICAL INDICATION:Male, 68 years old with history of Neuro deficit, acute, stroke suspected, left s ided weakness TECHNIQUE: Brain: Multiple axial CT images of the brain were obtained without IV contrast. . Coronal and sagitta l reformats reviewed. FINDINGS: Brain: Extra-axial spaces: No abnormal extra-axial fluid collections. Ventricular system: Within normal limits Cerebral parenchyma: No acute intraparenchymal hemorrhage or mass effect. The fernando-white junction is well differentiated. Scattered hypoattenuating areas are seen within the white matter. Cerebellum: Unremarkable. Mass effect: No evidence of midline shift. Intracranial vasculature: Atherosclerotic calcifications of the intracranial vessels. Soft tissues: Normal. Calvarium/osseous structures: No depressed skull fracture. Paranasal sinuses and mastoid air cells: The mastoid air cells are clear. Complete opacification of t he right axilla sinus again. Visualized orbits: Orbital contents are intact. IMPRESSION: 1. No acute intracranial process. 2. Nonspecific white matter changes, likely secondary to chronic small vessel ischemic disease. 3. Right maxillary sinus disease redemonstrated.
--- NOTE | 2023-05-01 09:47 | CT ---
EXAMINATION TYPE: CT angio head neck CT DLP: 322.4 mGycm, Automated exposure control for dose reduction was used. DATE OF EXAM: 05/01/2023 9:30 AM COMPARISON: CT brain 05/01/2023. CLINICAL INDICATION:Male, 68 years old with history of cant swallow; PHH, left sided weakness TECHNIQUE: Axially acquired helical CT angiogram of the head and neck was obtained with contrast util izing 75 cc of Isovue-370 administered intravenously. Axial images are supplemented with 3D reconstru ctions which were post-processed at an independent workstation. NASCET criteria used. FINDINGS: CTA HEAD: No evidence of acute intracranial hemorrhage, mass effect, or midline shift. The ventricles, sulci, a nd cisterns are unremarkable. The visualized portions of the internal carotid arteries, middle cerebral arteries, anterior cerebral arteries, and posterior cerebral arteries are patent. The basilar and vertebral arteries are patent. CTA NECK: Right Carotid System: The external carotid artery is patent. There is a short segment linear filling defect identified with in the distal right common carotid artery (series 504, image 361). The remaining common carotid arter y is patent. The carotid bifurcation demonstrates no evidence of hemodynamically significant stenosis . Postsurgical changes from right endarterectomy. Mild stenosis secondary to calcified plaque involvi ng the cavernous portion of the internal carotid artery. The remaining portions of the internal carot id artery demonstrate normal size without significant narrowing. Left Carotid System: The common carotid artery and external carotid artery are patent. Approximately 50% stenosis at the i nternal carotid artery origin secondary to calcified plaque. Mild stenosis secondary to calcified catrachito que involving the cavernous portion of the internal carotid artery. The remaining portions of the int ernal carotid artery demonstrate normal size without significant narrowing. Vertebral arteries are patent without evidence hemodynamically significant stenosis. Right vertebral artery is dominant. There is a three-vessel aortic arch. The origins of the great vessels are patent. No evidence of hemo dynamically significant stenosis. Postsurgical changes are intracervical fusion. Foci of gas identified within the right neck soft tiss ues likely related to recent surgery. Complete opacification of the right maxillary sinus. Mildly pro minent right jugular lymph node measuring 9 mm short axis (series 505, image 296). IMPRESSION: 1. Post surgical changes from right endarterectomy with a short segment linear defect identified with in the distal right common carotid artery. This may represent postsurgical change versus short segmen t dissection. No evidence of dissection of the left internal carotid artery or vertebral arteries. Ap proximately 50% stenosis at the proximal left internal carotid artery secondary to calcified plaque. 2. No evidence of intracranial aneurysm or high-grade intracranial stenosis.
[2023-05-01 10:20] LABS: Basophils # (A) 0.1 k/uL (0-0.2); Basophils % (A) 0 %; Eosinophils # (A) 0.2 k/uL (0-0.7); Eosinophils % (A) 1 %; HCT 38.9 % (39.0-53.0); Lymphocytes # (A) 2.6 k/uL (1.0-4.8); Lymphocytes % (A) 23 %; MCH 31.9 pg (25.0-35.0); MCHC 33.5 g/dL (31.0-37.0); MCV 95.1 fL (80.0-100.0); Mean Platelet Volume 7.7; Monocytes # (A) 0.7 k/uL (0-1.0); Monocytes % (A) 6 %; Neutrophils # (A) 7.6 k/uL (1.3-7.7); Neutrophils % (A) 66 %; Platelet Count 219 k/uL (150-450); RDW 12.7 % (11.5-15.5); WBC 11.5 k/uL (3.8-10.6)
--- NOTE | 2023-05-01 10:20 | P.PN ---
Subjective Progress Note Date: 05/01/23 Principal diagnosis: Carotid endarterectomy This is a 68-year-old male who came in yesterday for right carotid endarterectomy with patch angioplasty. Patient is seen and examined this morning around 7:30 AM. He has had urinary retention and was straight cath 3 times throughout the night. He is also having some left hand weakness with dexterity. He otherwise has no other focal deficits reported. Patient speech was clear, he answered questions appropriately and followed commands. He had facial symmetry. Dr. Harrison and I got patient up and walked in the hallway with him. He had no difficulty with ambulation. He was brought back to his room. At approximately 8:30 in the morning we were notified patient was having difficulty swallowing his breakfast. Advised nurse to call a code stroke. Code stroke was called. On-call neurology was also notified Dr. Mina. Recommending every 4 neurochecks, MRI of the brain without contrast and increase Lipitor to 80 mg daily. Patient on aspirin 81 mg and Plavix 75 mg. Consults were placed for PT, OT, and speech therapy. CT of the brain was ordered as well as CT angiogram head and neck. Brain CT reported no acute intracranial process. Nonspecific white matter changes, likely secondary to chronic small vessel ischemic disease. Right maxillary sinus disease redemonstrated. CT angiogram head and neck reports postsurgical changes from right endarterectomy with a short segment linear defect identified within the distal right common carotid artery. This may represent postsurgical change versus short segment dissection. No evidence of dissection of the left internal carotid artery or vertebral arteries. Approximately 50% stenosis at the proximal left internal carotid artery secondary to calcified plaque. No evidence of intracranial aneurysm or high-grade intracranial stenosis. Objective - Vital Signs Vital signs: Vital Signs Temp 97.6 F 05/01/23 08:00 Pulse 49 L 05/01/23 08:42 Resp 16 05/01/23 08:42 BP 151/68 05/01/23 08:42 Pulse Ox 96 05/01/23 08:42 FiO2 Intake & Output 04/30/23 05/01/23 05/01/23 18:59 06:59 18:59 Intake Total 1950 Output Total 10 2980 400 Balance 1940 -2980 -400 Intake: IV 1950 Output: Drainage 30 Neck 30 Urine 2950 400 Straight 2950 Estimated Blood Loss 10 - Exam General appearance: The patient is alert, oriented, appears in no acute distress. HET: Head is normocephalic and atraumatic. Pupils are equal and reactive. Neck: Supple. Right neck incision site well-approximated, TOÑA drain with approximately 10 mL of serosanguineous drainage which was removed. Heart: Regular. Lungs: Equal expansion, normal respiratory effort. Abdomen: Soft, nontender, nondistended. Extremities: Normal skin color and turgor. Neurological: Patient is alert and oriented times 4. HEENT patient has facial symmetry, speech is clear, answers questions appropriately and follows commands. He does have good strength and tone overall to bilateral upper and lower extremities however left hand does have some weakness with dexterity as well as left upper extremity is a little sluggish compared to right. - Labs CBC & Chem 7: 05/01/23 09:54 05/01/23 09:54 Labs: Abnormal Lab Results - Last 24 Hours (Table) 04/30/23 04/30/23 04/30/23 Range/Units 10:36 13:33 20:39 POC Glucose (mg/dL) 246 H 216 H 260 H (70-110) mg/dL 05/01/23 Range/Units 05:45 POC Glucose (mg/dL) 257 H (70-110) mg/dL Assessment and Plan Assessment: 1. Right carotid endarterectomy with patch angioplasty for hemodynamically significant right internal carotid artery stenosis 2. Left hand weakness and dysphagia Plan: 1. Patient was encouraged to ambulate 2. Flomax 0.4 mg started 3. Code stroke initiated 4. Brain CT ordered and reviewed 5. CT angiogram head and neck ordered and reviewed independently by Dr. Barrett 6. Stat carotid duplex ordered 7. Keep n.p.o. 8. Consult to neurology, appreciate recommendations 9. Consult to PT, OT, and speech therapy 10. Continue aspirin 81 mg, Plavix 75 mg added and increased atorvastatin to 80 mg daily 11. Rest of medical management per primary medical team 12. Further recommendations forthcoming based on clinical course The impression and plan of care has been dictated as directed. Dr. Barrett I performed a history and examination of this patient, discussed the same with the dictator. I agree with the dictator's note ,documented as a scribe. Any additional findings or plans will be noted. Reviewed CTA and carotid Doppler both of which demonstrate a proximal dissection which is the aspect of plaque that was cut in the OR. The dissection flap is not occlusive and during OR the flow was not diminished and therefore no surgical intervention at this time. Agree with MRI and will await results.
[2023-05-01 10:32] LABS: ALT 18 U/L (4-49); AST 20 U/L (17-59); African American GFR (CKD) >90 (>60 ml/min/1.73 sqM); Albumin 3.9 g/dL (3.5-5.0); Alkaline Phosphatase 78 U/L (38-126); Anion Gap 7 mmol/L; Blood Urea Nitrogen 16 mg/dL (9-20); Calcium 9.5 mg/dL (8.4-10.2); Carbon Dioxide 23 mmol/L (22-30); Chloride 106 mmol/L (98-107); Glucose 126 mg/dL (74-99); Non-African American GFR(CKD) 84 (>60 ml/min/1.73 sqM); Sodium 136 mmol/L (137-145); Total Bilirubin 0.6 mg/dL (0.2-1.3); Total Protein 6.3 g/dL (6.3-8.2)
[2023-05-01 10:50] LABS: INR 0.9 (<1.2); Partial Thromboplastin Time 22.3 sec (22.0-30.0); Prothrombin Time 9.7 sec (10.0-12.5)
--- NOTE | 2023-05-01 11:26 | US ---
EXAMINATION TYPE: US carotid duplex BILAT DATE OF EXAM: 05/01/2023 COMPARISON: CTa 05/01/23 CLINICAL INDICATION: Male, 68 years old with history of evaluate flow, s/p carotid endarterectomy 04/03 12/24; Evaluate flow, s/p endarterectomy 04/30/23. Code stroke was called on this patient this morning* Questionable possible short segment dissection versus post surgical changes right CCA per CTa report . TECHNIQUE: Carotid duplex ultrasound examination. Indirect Doppler criteria was utilized. FINDINGS: EXAM MEASUREMENTS: RIGHT: Peak Systolic Velocity (PSV) cm/sec ----- Right CCA: 51.7 ----- Right ICA: 159 ----- Right ECA: 171 ICA/CCA ratio: 3.08 RIGHT: End Diastole cm/sec ----- Right CCA: 13.6 ----- Right ICA: 24.1 ----- Right ECA: 34.6 LEFT: Peak Systolic Velocity (PSV) cm/sec ----- Left CCA: 146 ----- Left ICA: 190 ----- Left ECA: 160 ICA/CCA ratio: 1.3 LEFT: End Diastole cm/sec ----- Left CCA: 29.0 ----- Left ICA: 42.0 ----- Left ECA: 25.6 VERTEBRALS (direction of flow): Right Vertebral: Antegrade Left Vertebral: Unable to visualize. 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 Lack of flow s een at this area. *Elevated velocities within right ICA, right ECA, right vertebral, left CCA, left ICA, and left ECA. Plaque seen within left CCA, left bulb, and left proximal bifurcation. Exam is limited. IMPRESSION: There appears to be an intimal flap within the right common carotid artery felt to reflect dissection until proven otherwise. Criteria for Assigning % of Stenosis / Diameter reduction (Estimation based on the indirect measurements of the internal carotid artery velocities (ICA PSV). 1. Normal (no stenosis)=ICA PSV < 125 cm/s: ratio < 2.0: ICA EDV<40 cm/s. 2. Less than 50% stenosis=ICA PSV < 125 cm/s: ratio < 2.0: ICA EDV<40 cm/s. 3. 50 to 69% stenosis=ICA PSV of 125 to 230 cm/s: ration 2.0 ? 4.0: ICA EDV 40-100 cm/s. 4. Greater than 70% stenosis to near occlusion= ICA PSV > 230 cm/s: ratio > 4.0: ICA EDV > 100 cm/s. 5. Near occlusion= ICA PSV velocities may be low or undetectable: variable ratio and ICA EDV. 6. Total occlusion=unable to detect flow.
[2023-05-01 11:38] LABS: Glucose,Whole Blood 141 mg/dL (70-110)
[2023-05-01] MEDS: ATORVASTATIN 80 MG TAB PO SCH (12:24)
[2023-05-01 16:52] LABS: Glucose,Whole Blood 125 mg/dL (70-110)
--- NOTE | 2023-05-01 16:59 | MR ---
EXAMINATION TYPE: MR brain/cspine wo DATE OF EXAM: 05/01/2023 COMPARISON: None HISTORY: Left hand weakness, code stroke, dysphagia, recent surgery, CONTRAST: Performed utilizing 0 mL intravenous Gadavist gadolinium contrast. TECHNIQUE: Multiplanar, multiecho imaging on a 3.0 Vani magnet is performed through the brain. Stud y is performed within 24 hours of arrival to the hospital. The craniovertebral junction is normal. The pituitary is normal. Diffusion-weighted imaging is performed. There is a punctate cortical hyperintensity on diffusion we ighted imaging in the right occipital lobe near the vertex. An additional subcortical hyperintensitie s within the parietal lobe extending to nearly the periventricular white matter. Series 303 image 208 White matter hyperintensity correlates with the acute ischemic change on diffusion within the parieta l lobe. White matter change in the cortex of the occipital lobe also correlates with the effusion. Some additional punctate hyperintensities are within the periventricular white matter which are nonsp ecific but could be related to prior microvascular ischemic changes. Ventricles and sulci are appropriate for the patient age. There is opacification of the right maxillary sinus. Some mild mucosal thickening within anterior eth moid air cells, more so on the right is present. IMPRESSION: 1. Acute ischemic change right parietal lobe and right occipital lobe cortex. 2. Additional chronic appearing periventricular white matter ischemic-type changes. EXAMINATION TYPE: MR brain/cspine wo DATE OF EXAM: 05/01/2023 COMPARISON: None HISTORY: Left hand weakness, code stroke, dysphagia, recent surgery, CONTRAST: Performed utilizing 0 mL intravenous Gadavist gadolinium contrast. TECHNIQUE: Multiplanar multiecho imaging on a 3.0 Vani magnet is performed through the cervical spin e. FINDINGS: The craniovertebral junction is normal. Vertebral body alignment is normal. Anterior cer vical fusion C5-C7 is present. C3-4: Small central endplate spur is present with moderate anterior thecal sac compression and cord c ontact. AP spinal canal stenosis is present at 0.6 cm. Left foraminal narrowing is present C4-5: Endplate changes and anterior thecal sac flattening. No AP spinal canal stenosis present. Some foraminal narrowing is present bilaterally. C5-6: Susceptibility artifact is near this level causing some limitation. Obvious stenosis is not lyssa ntified. C6-7: Susceptibility artifact limits the anterior thecal sac evaluation. Impression and cord contact cannot be excluded. However, no suspicious abnormality on the sagittal plane images is evident. C7-T1: Foraminal narrowing C7-T1 is present. Facet hypertrophy is present. IMPRESSION: 1. Chronic and postsurgical changes are present. 2. Central focal spurring from the endplate at C3-4 has cord contact, mild deformity, and AP spinal c anal stenosis.
--- NOTE | 2023-05-01 17:45 | P.CNNES ---
History of Present Illness Consult date: 05/01/23 Requesting physician: Carmencita Hoang Reason for Consult: code stroke s/p right carotid endar History of Present Illness: This is a tele-consult. Person assisting me conduct visit is Nasrin Ruano. This is a 68-year-old gentleman with history of significant right ICA stenosis of > 90%, possible TIA who presents to hospital for right carotid endarterectomy with angioplasty on 04/30/2023. It seems the patient was evaluated as outpatient neurologist and had possible TIA and had manifestation of left upper extremity numbness and right vision disturbance and had MRA and showed right ICA stenosis >90%. Yesterday, the patient had right carotid endarterectomy with angioplasy in the morning and he stated by 12-1pm yesterday after surgery he noticed difficulty swallowing, left side weakness and numbness, visual disturbance of both eye and feel sees flashes of both eyes and is intermittent (and did not have that prior), urinary and bowel issues. Also feels speech is slurred. He notified the team today early in the morning and stated yesterday. He stated he had sedation from procedure yesterday and felt o ff yesterday and by time sedation weared off he noticed all symptoms. He denies of any headache. He was on Aspirin prior to this. As result code stroke was activated today. I spoke with N.P. from vascular surgery team early in the morning and notified to obtain CT head, CTA head and neck and pursue MRI Brain and to have stroke team evaluate patient. Some of the work-up during this hospital visit consisted of: Serum glucose in 120's HbA1c: 9.3 CT head is reported as no acute intracranial process. I personally reviewed CT head and agree there is no acute or subacute ischemic stroke or bleed. CTA head neck is reported as postsurgical changes from right endarterectomy with a short segment linear defect identified within the distal right common carotid artery. This may represent postsurgical change vs short segment dissection. No evidence of dissection left internal carotid artery or vertebral arteries. Approximately 50% stenosis at proximal left internal carotid artery secondary due to calcified plaque. No evidence of intracranial aneurysm or benitez grade intracranial stenosis. I spoke with the patient's nurse and she spoke with the stroke attending (Dr. Deleon) and was notified no IV thrombolytic since outside window >4.5 hour (onset was yesterday in early afternoon) and risk outweigh the benefit. Carotid duplex: It is reported there appears to be intimal flap in right common carotid and felt dissection until proven otherwise. Review of Systems The positive and negative as per HPI. 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 frequent UTI, covid infection 2021, this surgery was cancelled in Jan.-sick w/URI & cough-all resolved Last Myocardial Infarction Date:: 2020 History of Any Multi-Drug Resistant Organisms: None Reported Past Surgical History: Heart Catheterization With Stent, Joint Replacement, Orthopedic Surgery Additional Past Surgical History / Comment(s): cervical fusion, faustina hip replacement, septoplasty, arthroscopy rt knee Past Anesthesia/Blood Transfusion Reactions: No Reported Reaction Additional Past Anesthesia/Blood Transfusion Reaction / Comment(s): sever alg co tomaszzine. no hx blood transfusion Date of Last Stent Placement:: 05/10/2020 Smoking Status: Current some day smoker - Past Family History Mother Family Medical History: Cancer, Deep Vein Thrombosis (DVT) Medications and Allergies Home Medications Medication Instructions Recorded Confirmed Type Dextroamphetamine/Amphetamine 20 mg PO DAILY 05/22/16 04/30/23 History [Adderall] Aspirin 81 mg PO DAILY #0 chew 05/12/20 04/30/23 Rx Metoprolol Tartrate [Lopressor] 12.5 mg PO BID 02/16/23 04/30/23 History Fluticasone Nasal [place] [Flonase 2 spray EA NOSTRIL DAILY 04/23/23 04/30/23 History Nasal [place]] Acetaminophen Tab [Tylenol] 650 mg PO Q4HR PRN tab 05/03/23 Rx Atorvastatin [Lipitor] 80 mg PO DAILY #30 tab 05/03/23 Rx Clopidogrel [Plavix] 75 mg PO DAILY #30 tab 05/03/23 Rx Tamsulosin [Flomax] 0.4 mg PO PC-BRKFST #30 cap 05/03/23 Rx Allergies Allergy/AdvReac Type Severity Reaction Status Date / Time duloxetine [From Cymbalta] Allergy Severe throat Verified 04/30/23 06:30 swelling, could not swallow prochlorperazine Allergy Severe states Verified 04/30/23 06:30 [From Compazine] "tongue stuck out and body stiffened" acyclovir Allergy Swelling Verified 04/30/23 06:30 levofloxacin [From Levaquin] Allergy Swelling Verified 04/30/23 06:30 Penicillins Allergy Swelling Verified 04/30/23 06:30 poison dylon extract Allergy generalized Verified 04/30/23 06:30 blisters and pain-goes ER poison oak extract Allergy generalized Verified 04/30/23 06:30 blisters and pain-goes ER poison sumac extract Allergy generalized Verified 04/30/23 06:30 blisters and pain-goes ER pregabalin [From Lyrica] AdvReac can't Verified 04/30/23 06:30 walk, muscle and joint pain Physical Examination - Vital Signs Vital Signs: Vital Signs Temp Pulse Pulse Pulse Resp BP BP 05/01/23 14:02 74 52 L 17 05/01/23 14:00 52 L 16 05/01/23 11:21 97.6 F 52 L 17 149/70 05/01/23 10:47 52 L 16 135/65 05/01/23 10:32 52 L 16 151/76 05/01/23 10:17 48 L 16 148/57 05/01/23 10:02 53 L 16 152/66 05/01/23 09:47 59 L 16 148/68 05/01/23 09:32 50 L 16 148/57 05/01/23 08:42 49 L 16 151/68 05/01/23 08:00 97.6 F 52 L 16 144/65 05/01/23 03:28 97.9 F 59 L 19 140/63 05/01/23 00:00 97.9 F 73 19 145/64 04/30/23 21:16 97.9 F 70 19 04/30/23 17:16 72 16 BP Pulse Ox 05/01/23 14:02 05/01/23 14:00 05/01/23 11:21 05/01/23 10:47 05/01/23 10:32 05/01/23 10:17 05/01/23 10:02 05/01/23 09:47 05/01/23 09:32 05/01/23 08:42 96 05/01/23 08:00 05/01/23 03:28 95 05/01/23 00:00 94 L 04/30/23 21:16 116/63 95 04/30/23 17:16 116/62 94 L Intake and Output 05/01/23 05/01/23 05/01/23 06:59 14:59 22:59 Output Total 1730 1000 Balance -1730 -1000 Output: Drainage 30 Neck 30 Urine 1700 1000 Straight 1700 Tele-examination. The person assisting with examination is Nasrin Ruano. General: Sitting up in a chair and is not in acute distress. Neuro: The patient is awake, alert, oriented to self, place and time. Is following simple commands. No aphasia or neglect. Pupils are 3mm bilaterally. Visual santana are full to confrontation. EOM intact and no nystagmus. Normal facial sensation to touch. No facial weakness. No dysarthria. Tongue is midline and moves side to side without difficulty. Motor: Strength is 4-4+ over the left side. Right side is 5/5. No pronator drift of uppers. Sensation: Decrease to touch over the left side. Results - Laboratory Findings CBC and BMP: 05/01/23 09:54 05/01/23 09:54 Abnormal Lab Findings: Abnormal Labs 04/30/23 04/30/23 04/30/23 06:38 10:36 13:33 WBC RBC Hct PT Sodium Glucose POC Glucose (mg/dL) 147 H 246 H 216 H Hemoglobin A1c 04/30/23 05/01/23 05/01/23 20:39 05:45 07:40 WBC RBC Hct PT Sodium Glucose POC Glucose (mg/dL) 260 H 257 H Hemoglobin A1c 9.3 H 05/01/23 05/01/23 05/01/23 09:54 09:54 09:54 WBC 11.5 H RBC 4.10 L Hct 38.9 L PT 9.7 L Sodium 136 L Glucose 126 H POC Glucose (mg/dL) Hemoglobin A1c 05/01/23 11:37 WBC RBC Hct PT Sodium Glucose POC Glucose (mg/dL) 141 H Hemoglobin A1c Assessment and Plan Assessment: This is a 68 y/o gentleman with history of severe right ICA stenosis >90% on MRA and has possible tia (visual disturbance and numbness left upper extremity) who underwent right internal carotid endarterectomy with angioplasty on 04/30/23 early in morning and then by 12-1pm yesterday he noticed dysphagia, left sided weakness, numbness, slurring of speech. Also states having urinary and bowel issues since surgery. CT head is negative. CTA head and neck and carotid duplex is concern for right ICA dissection. Acute Dysphagia, left side weakness, numbness, dysarthria is likely acute ischemic stroke and likely etiology is embolic from recent surgery (endarterectomy). No IV thrombolytic since outside window. Concerning for right carotid dissection on CTA and duplex History of possible TIA with visual disturbance and left upper extremity numbness Diabetes Mellitus and HbA1c is 9.3 Plan: I spoke with the Dr. Barrett (vascular surgeon) and he states he reviewed images and does not think it is dissection. He will review images with Radiologist. I ordered MRI Brain and C-spine. In addition to his home ASA 81mg daily. Plavix 75mg was started by vascular surgery team. Lipitor increased from 40mg to 80mg for secondary stroke prophylaxis. 2D echo and lipid panel ordered Q4 hour neuro checks. Cardiac monitoring. PT, OT and [employer]OC[employer] DES[employer]ER are consulted. Will defer the rest of management to vascular and primary team. For DVT prophylaxis: Started Lovenox. If patient having fluctuation or worsening symptoms then recommend transfer to ICU for close neurological monitoring. The plan is discussed in length with patient and vascular surgery team as well his nurse. Thank you for the consultation. Time with Patient: Greater than 30
[2023-05-01 20:00] LABS: Glucose,Whole Blood 168 mg/dL (70-110)
[2023-05-01] MEDS: ENOXAPARIN 30 MG/0.3 ML SYRINGE SQ SCH (20:08)
[2023-05-01] MEDS: FLUTICASONE 50MCG/SPRAY NASAL 16GM EA NOSTRIL SCH (20:10)
[2023-05-02 03:09] LABS: Chol/HDL Ratio 2.48 Ratio; LDL Cholesterol,Calculated 44.7 mg/dL (0.0-131.0)
[2023-05-02 05:50] LABS: Glucose,Whole Blood 116 mg/dL (70-110)
--- NOTE | 2023-05-02 08:28 | P.PN ---
Subjective Principal diagnosis: Patient 68-year-old white male essentially admitted for carotid endarterectomy. Yesterday had code stroke. MRI does show ischemic area of the parietal area. Patient is asymptomatic today. No dysphagia no left upper extremity numbness or tingling stated. No fever or chills no voiding difficulty ambulating properly. Appreciate neurology input. No voiding difficulties. No fever or chills. No nausea, vomiting or diarrhea. Objective - Vital Signs Vital signs: Vital Signs Temp 98.0 F 05/02/23 07:34 Pulse 58 L 05/02/23 07:34 Resp 14 05/02/23 07:34 BP 187/79 05/02/23 07:34 Pulse Ox 93 L 05/02/23 07:34 FiO2 Intake & Output 05/01/23 05/02/23 05/02/23 18:59 06:59 18:59 Intake Total 118 Output Total 1000 1300 Balance -882 -1300 Intake: Oral 118 Output: Urine 1000 1300 - Constitutional General appearance: Present: no acute distress - EENT Eyes: Absent: abnormal pupil - Respiratory Respiratory: bilateral: diminished - Cardiovascular Rhythm: regular Heart sounds: normal: S1, S2 Abnormal Heart Sounds: Absent: S3 Gallop - Gastrointestinal General gastrointestinal: Present: soft. Absent: tenderness - Integumentary Integumentary: Absent: cellulitis - Labs CBC & Chem 7: 05/01/23 09:54 05/01/23 09:54 Labs: Abnormal Lab Results - Last 24 Hours (Table) 05/01/23 05/01/23 05/01/23 Range/Units 07:40 09:54 09:54 WBC 11.5 H (3.8-10.6) k/uL RBC 4.10 L (4.30-5.90) m/uL Hct 38.9 L (39.0-53.0) % PT 9.7 L (10.0-12.5) sec Sodium (137-145) mmol/L Glucose (74-99) mg/dL POC Glucose (mg/dL) (70-110) mg/dL Hemoglobin A1c 9.3 H (<=6.0) % 05/01/23 05/01/23 05/01/23 Range/Units 09:54 11:37 16:50 WBC (3.8-10.6) k/uL RBC (4.30-5.90) m/uL Hct (39.0-53.0) % PT (10.0-12.5) sec Sodium 136 L (137-145) mmol/L Glucose 126 H (74-99) mg/dL POC Glucose (mg/dL) 141 H 125 H (70-110) mg/dL Hemoglobin A1c (<=6.0) % 05/01/23 05/02/23 Range/Units 19:58 05:49 WBC (3.8-10.6) k/uL RBC (4.30-5.90) m/uL Hct (39.0-53.0) % PT (10.0-12.5) sec Sodium (137-145) mmol/L Glucose (74-99) mg/dL POC Glucose (mg/dL) 168 H 116 H (70-110) mg/dL Hemoglobin A1c (<=6.0) % Assessment and Plan (1) Carotid stenosis, bilateral Current Visit: Yes Status: Acute Code(s): I65.23 - OCCLUSION AND STENOSIS OF BILATERAL CAROTID ARTERIES SNOMED Code(s): 800971097 (2) Diabetes mellitus Current Visit: Yes Status: Acute Code(s): E11.9 - TYPE 2 DIABETES MELLITUS WITHOUT COMPLICATIONS SNOMED Code(s): 10622493 (3) CAD (coronary artery disease) Current Visit: No Status: Acute Code(s): I25.10 - ATHSCL HEART DISEASE OF [place] CORONARY ARTERY W/O ANG PCTRS SNOMED Code(s): 08452227 (4) Status post total hip replacement, left Current Visit: No Status: Acute Code(s): Z96.642 - PRESENCE OF LEFT ARTIFICIAL HIP JOINT SNOMED Code(s): 892284612343 Plan: MRI reviewed Appreciate neurology input. Check CBC and CMP in the a.m. Discussed with vascular team today and will continue to observe.
[2023-05-02 11:40] LABS: Glucose,Whole Blood 144 mg/dL (70-110)
--- NOTE | 2023-05-02 12:19 | CA ---
Transthoracic Echo Report Name: Jim Salcedo Age: 68 Gender: M : 1955 Exam Date: 05/02/2023 07:42 Exam Location: [place] [facility] Ht (in): 72 Wt (lb): 208 Ordering Physician: Alexandro Mina MD Attending/Referring Phys: Critical Care Educator Abiola Singh [facility] Procedure CPT: Indications: stroke Cardiac Hx: Technical Quality: Fair Contrast 1: Total Dose (mL): Contrast 2: Total Dose (mL): MEASUREMENTS (Male / Female) Normal Values 2D ECHO LV Diastolic Diameter PLAX 5.2 cm 4.2 - 5.9 / 3.9 - 5.3 cm LV Systolic Diameter PLAX 3.3 cm IVS Diastolic Thickness 0.9 cm 0.6 - 1.0 / 0.6 - 0.9 cm LVPW Diastolic Thickness 1.0 cm 0.6 - 1.0 / 0.6 - 0.9 cm LV Relative Wall Thickness 0.4 LVOT Diameter 2.0 cm Ascending Aorta Diameter 3.2 cm M-MODE Aortic Root Diameter MM 3.0 cm LA Systolic Diameter MM 3.8 cm LA Ao Ratio MM 1.3 AV Cusp Separation MM 2.4 cm DOPPLER AV Peak Velocity 126.0 cm/s AV Peak Gradient 6.3 mmHg AV Mean Velocity 75.1 cm/s AV Mean Gradient 2.8 mmHg AV Velocity Time Integral 25.3 cm LVOT Peak Velocity 100.5 cm/s LVOT Peak Gradient 4.0 mmHg LVOT Velocity Time Integral 23.4 cm LVOT Stroke Volume 76.6 cm??? LVOT Stroke Volume Index 35.4 ml/m??? LVOT Cardiac Index 2048.3 cm???/min???m??? AV Area Cont Eq vti 3.0 cm??? AV Area Cont Eq pk 2.6 cm??? Mitral E Point Velocity 110.6 cm/s Mitral A Point Velocity 106.3 cm/s Mitral E to A Ratio 1.0 MV Deceleration Time 200.3 ms LV E' Lateral Velocity 8.7 cm/s Mitral E to LV E' Lateral Ratio 12.7 LV E' Septal Velocity 8.2 cm/s Mitral E to LV E' Septal Ratio 13.5 TR Peak Velocity 245.4 cm/s TR Peak Gradient 24.1 mmHg Right Atrial Pressure 8.0 mmHg Pulmonary Artery Systolic Pressu 32.1 mmHg Right Ventricular Systolic Press 32.1 mmHg FINDINGS Left Ventricle Left ventricular wall thickness normal. Left ventricular cavity size normal. Normal left ventricular systolic function with no obvious regional wall motion abnormalities. Left ventricular ejection fraction is estimated at 60-65%. Right Ventricle Mild right ventricular dilatation. Mild pulmonary hypertension. Right Atrium Mild right atrial dilatation. Left Atrium Normal left atrial size. Mitral Valve Structurally normal mitral valve. Trace mitral regurgitation. Aortic Valve Aortic valve not well visualized. No aortic regurgitation. Tricuspid Valve Structurally normal tricuspid valve. Trace tricuspid regurgitation. Pulmonic Valve Pulmonic valve not well visualized. Pericardium No pericardial effusion. Aorta Normal size aortic root and proximal ascending aorta. CONCLUSIONS Left ventricular ejection fraction is estimated at 60-65%. Normal left ventricular systolic function with no obvious regional wall motion abnormalities. Mild right atrial dilatation. Mild right ventricular dilatation. RVSP estimated at 32 mmHg No significant valvular dysfunction Previewed by: Dr Andrea Darling (Electronically Signed) Final Date: 02 May 2023 12:18
--- NOTE | 2023-05-02 12:53 | P.PN ---
Subjective Progress Note Date: 05/02/23 Principal diagnosis: Carotid endarterectomy Patient seen and examined sitting up in the bedside chair getting ready to eat breakfast this morning. He currently denies any new focal deficits. States as of yesterday still felt like food was difficult to swallow and he had to drink water to help pass it. States he still having to push to urinate but good urine output. He was evaluated yesterday by speech therapy who felt he had a overall normal swallow study however recommended a chopped diet for patient's peace of mind. He denies any new focal deficits, left hand weakness improved. He has been up and ambulating. He did have a MRI of the brain and C-spine. Brain MRI reports acute ischemic change right parietal lobe and right occipital lobe cortex. Additional chronic appearing periventricular white matter ischemic type changes. C-spine reports chronic and postsurgical changes present. Central focal spurring from the endplate at C3-4 has cord contact, mild deformity in AP spinal canal stenosis. Echocardiogram with findings of ejection fraction 60 to 65%, normal left ventricular systolic function with no obvious regional wall motion or abnormalities. Mild right atrial dilation. Mild right ventricular dilation. RVSP estimated at 32 mmHg no significant valvular dysfunction. Objective - Vital Signs Vital signs: Vital Signs Temp 98.0 F 05/02/23 07:34 Pulse 58 L 05/02/23 07:34 Resp 14 05/02/23 07:34 BP 187/79 05/02/23 07:34 Pulse Ox 93 L 05/02/23 07:34 FiO2 Intake & Output 05/01/23 05/02/23 05/02/23 18:59 06:59 18:59 Intake Total 118 Output Total 1000 1300 Balance -882 -1300 Intake: Oral 118 Output: Urine 1000 1300 - Exam General appearance: The patient is alert, oriented, appears in no acute distress. HET: Head is normocephalic and atraumatic. Pupils are equal and reactive. Neck: Supple. Right neck incision site well-approximated, mild swelling around incision with no hematoma. Heart: Regular. Lungs: Equal expansion, normal respiratory effort. Abdomen: Soft, nontender, nondistended. Extremities: Normal skin color and turgor. Neurological: Patient is alert and oriented. patient has facial symmetry, speech is clear, answers questions appropriately and follows commands. He does have good strength and tone overall to bilateral upper and lower extremities with definite improvement on the left hand dexterity and left upper extremity strength. - Labs CBC & Chem 7: 05/01/23 09:54 05/01/23 09:54 Labs: Abnormal Lab Results - Last 24 Hours (Table) 05/01/23 05/01/23 05/01/23 Range/Units 07:40 09:54 09:54 WBC 11.5 H (3.8-10.6) k/uL RBC 4.10 L (4.30-5.90) m/uL Hct 38.9 L (39.0-53.0) % PT 9.7 L (10.0-12.5) sec Sodium (137-145) mmol/L Glucose (74-99) mg/dL POC Glucose (mg/dL) (70-110) mg/dL Hemoglobin A1c 9.3 H (<=6.0) % 05/01/23 05/01/23 05/01/23 Range/Units 09:54 11:37 16:50 WBC (3.8-10.6) k/uL RBC (4.30-5.90) m/uL Hct (39.0-53.0) % PT (10.0-12.5) sec Sodium 136 L (137-145) mmol/L Glucose 126 H (74-99) mg/dL POC Glucose (mg/dL) 141 H 125 H (70-110) mg/dL Hemoglobin A1c (<=6.0) % 05/01/23 05/02/23 Range/Units 19:58 05:49 WBC (3.8-10.6) k/uL RBC (4.30-5.90) m/uL Hct (39.0-53.0) % PT (10.0-12.5) sec Sodium (137-145) mmol/L Glucose (74-99) mg/dL POC Glucose (mg/dL) 168 H 116 H (70-110) mg/dL Hemoglobin A1c (<=6.0) % Assessment and Plan Assessment: 1. Right carotid endarterectomy with patch angioplasty for hemodynamically significant right internal carotid artery stenosis 2. Left hand weakness and dysphagia 3. Intimal flap within the right common carotid artery/dissection reported per carotid duplex and CT angiogram expected finding post carotid endarterectomy with no limiting flow noted 4. Acute ischemic change to right parietal lobe and right occipital lobe cortex possibly secondary to hypoperfusion 5. Urinary retention, resolved Plan: 1. Encourage ambulation 2. Flomax 0.4 mg started 3. Diet as tolerated, may advance to regular diet per patient request 4. MRI brain ordered and reviewed 5. CT angiogram head and neck ordered and reviewed independently by Dr. Barrett 6. Stat carotid duplex ordered and reviewed independently by Dr. Barrett 7. Continue with recommendations per neurology 8. Consult to PT, OT, and speech therapy 9. Continue aspirin 81 mg, Plavix 75 mg added and increased atorvastatin to 80 mg daily 10. Rest of medical management per primary medical team 11. Anticipate discharge in the next 24 hours. Await recommendations from PT and OT CTA and carotid Doppler imaging both reviewed by Dr. Barrett which demonstrates proximal dissection which is the aspect of plaque that was cut in the operating room. Dissection flap is not occlusive and during OR the flow was not dimin ished and therefore no surgical intervention indicated. The impression and plan of care has been dictated as directed. Dr. Pina I performed a history and examination of this patient, discussed the same with the dictator. I agree with the dictator's note ,documented as a scribe. Any additional findings or plans will be noted.
[2023-05-02 16:16] LABS: Glucose,Whole Blood 129 mg/dL (70-110)
--- NOTE | 2023-05-02 17:24 | P.PN ---
Subjective Progress Note Date: 05/02/23 I am following-up with patient and he states he is doing drastically better today compared to yesterday. He feels his neurological symptoms is improving but still feels subtle left sided weakness, numbness, dyphagia but again much better. Denies of any headache, nausea, vomiting. Denies of any new neuro logical issues. Upon seeing him he was having his lunch and had no issues swallowing. Objective - Vital Signs Vital signs: Vital Signs Temp 97.8 F 05/02/23 15:59 Pulse 60 05/02/23 15:59 Resp 16 05/02/23 15:59 BP 157/68 05/02/23 15:59 Pulse Ox 96 05/02/23 15:59 FiO2 Intake & Output 05/01/23 05/02/23 05/02/23 18:59 06:59 18:59 Intake Total 118 658 Output Total 1000 1300 900 Balance -882 -1300 -242 Intake: Oral 118 658 Output: Urine 1000 1300 900 Other: # Voids 2 - Exam General: Sitting in a recliner chair and is not in acute distress. HENT: Has scar on the right side of neck. Neuro: The patient is awake, alert, oriented to self, place and time. Is following simple commands. No aphasia or neglect. Pupils are round, equal (3-4mm) reactive to light equally. Visual santana are full to confrontation. EOM intact and no nystagmus. Mild left nasolabial flattening. No dysarthria. Motor: Gait is normal. Strength is having some difficulty dystrexity of the left hand, left hand industrial painter is 5-. Otherwise 5/5 throughout. Sensation is normal to touch throughout. Cerebellar: Normal finger to nose. Reflexes: 2+ throughout. Plantars are mute bilaterally. Some of the work-up during this hospital visit consisted of: Serum glucose in 120's HbA1c: 9.3 Lipid panels triglyceride of 120, cholesterol is 1:15, LDL is 44 and HDL is 46. [address] head is reported as no acute intracranial process. I personally reviewed CT head and agree there is no acute or subacute ischemic stroke or bleed. CTA head neck is reported as postsurgical changes from right endarterectomy with a short segment linear defect identified within the distal right common carotid artery. This may represent postsurgical change vs short segment dissection. No evidence of dissection left internal carotid artery or vertebral arteries. Approximately 50% stenosis at proximal left internal carotid artery secondary due to calcified plaque. No evidence of intracranial aneurysm or benitez grade intracranial stenosis. Carotid duplex: It is reported there appears to be intimal flap in right common carotid and felt dissection until proven otherwise. MRI Brain and Cervical spine: It is reported as acute ischemic exchange specialist the right parietal lobe and right occipital lobe cortex. Additional chronic appearing periventricular white matter ischemic changes. I personally reviewed the MRI of the brain and I agree there acute ischemic changes over the right parietal-frontal region. I personally reviewed that MRI the cervical spine and there is no myelomalacia or any significant abnormality that lead to his symptoms in my opinion. 2D echo: It is reported as a ejection fraction of 60-65%. Normal left ventricle systolic function with no obvious regional wall motion abnormality. No significant valvular dysfunction. - Labs CBC & Chem 7: 05/01/23 09:54 05/01/23 09:54 Labs: Abnormal Lab Results - Last 24 Hours (Table) 05/01/23 05/02/23 05/02/23 Range/Units 19:58 05:49 11:38 POC Glucose (mg/dL) 168 H 116 H 144 H (70-110) mg/dL 05/02/23 Range/Units 16:14 POC Glucose (mg/dL) 129 H (70-110) mg/dL Assessment and Plan Assessment: This is a 68 y/o gentleman with history of severe right ICA stenosis >90% on MRA and has possible tia (visual disturbance and numbness left upper extremity) who underwent right internal carotid endarterectomy with angioplasty on 04/30/23 early in morning and then by 12-1pm yesterday he noticed dysphagia, left sided weakness, numbness, slurring of speech. Also states having urinary and bowel issues since surgery. CT head is negative. CTA head and neck and carotid dupl ex is concern for right ICA dissection. Acute ischemic stroke (symptoms Dysphagia, left side weakness, numbness, dysarthria, urinary and bowel issues and visual disturbance). Etiology is embolic from recent surgery (endarterectomy). No IV thrombolytic since outside window. Symptoms is drastically improving. MRI reported as acute ischemic stroke over the right parietal-occipital but I felt it was more parietal-frontal region. Concerning for right carotid dissection on CTA and duplex History of possible TIA with visual disturbance and left upper extremity numbness Diabetes Mellitus and HbA1c is 9.3 Plan: In addition to his home ASA 81mg daily. Plavix 75mg was started by vascular surgery team. Lipitor increased from 40mg to 80mg for secondary stroke proph ylaxis. It is reported by Dr. Harrison that he reviewed the images and the he felt the proximal dissection which is the aspect of plaque that was caught in the operating room. Dissection flap is not occlusive and during oral R the flow was not diminished and therefore no surgical intervention is indicated. Q4 hour neuro checks. Cardiac monitoring. PT, OT and OPERATORS SCHOOL MANAGER are consulted. Will defer the rest of management to vascular and primary team. For DVT prophylaxis: On Lovenox. Upon discharge recommend the patient to follow-up with a neurologist as an outpatient within 1-2 weeks. The plan is discussed in length with patient, vascular surgery team as well his nurse. If by tomorrow, the patient is doing well then he is clear from a neurological perspective. Time with Patient: Less than 30
[2023-05-02 20:13] LABS: Glucose,Whole Blood 159 mg/dL (70-110)
[2023-05-03 06:05] LABS: Glucose,Whole Blood 149 mg/dL (70-110)
[2023-05-03 08:20] VITALS: RESP 18
--- NOTE | 2023-05-03 08:39 | P.PN ---
Subjective Progress Note Date: 05/03/23 Principal diagnosis: right endarterectomy This is a 68-year-old male who underwent a right total endarterectomy with Dr. Barrett on Sunday. The morning after surgery patient was complaining of increased difficulty swallowing and some left-sided weakness. Postoperatively a code stroke was called and the MRI did show ischemic area of the parietal area. He is seen this morning sitting up in bed. He reports swallowing has improved. No neuro deficits noted on exam. Objective - Vital Signs Vital signs: Vital Signs Temp 97.8 F 05/03/23 08:12 Pulse 59 L 05/03/23 08:12 Resp 18 05/03/23 08:12 BP 130/64 05/03/23 08:12 Pulse Ox 94 L 05/03/23 08:12 FiO2 Intake & Output 05/02/23 05/03/23 05/03/23 18:59 06:59 18:59 Intake Total 776 240 Output Total 900 Balance -124 240 Intake: Oral 776 240 Output: Urine 900 Other: # Voids 2 1 - Constitutional General appearance: Present: cooperative, no acute distress - EENT Eyes: Present: PERRLA - Neck Neck: Present: normal ROM. Absent: lymphadenopathy, rigidity - Respiratory Respiratory: bilateral: CTA - Cardiovascular Rhythm: regular Heart sounds: normal: S1, S2 - Gastrointestinal General gastrointestinal: Present: soft. Absent: tenderness - Integumentary Integumentary: Present: normal, normal turgor - Musculoskeletal Musculoskeletal: Present: strength equal bilaterally - Psychiatric Psychiatric: Present: A&O x's 3, appropriate affect, intact judgment & insight - Labs CBC & Chem 7: 05/01/23 09:54 05/01/23 09:54 Labs: Abnormal Lab Results - Last 24 Hours (Table) 05/02/23 05/02/23 05/02/23 Range/Units 11:38 16:14 20:12 POC Glucose (mg/dL) 144 H 129 H 159 H (70-110) mg/dL 05/03/23 Range/Units 06:04 POC Glucose (mg/dL) 149 H (70-110) mg/dL Assessment and Plan (1) Carotid stenosis, bilateral Current Visit: Yes Status: Acute Code(s): I65.23 - OCCLUSION AND STENOSIS OF BILATERAL CAROTID ARTERIES SNOMED Code(s): 177133504 (2) CAD (coronary artery disease) Current Visit: No Status: Acute Code(s): I25.10 - ATHSCL HEART DISEASE OF [place] CORONARY ARTERY W/O ANG PCTRS SNOMED Code(s): 03381248 (3) Attention deficit disorder Current Visit: No Status: Acute Code(s): F98.8 - OTH BEHAV/EMOTN DISORD W ONSET USLY OCCUR IN CHLDHD AND ADOL SNOMED Code(s): 91461550 (4) Urinary retention Current Visit: Yes Status: Acute Code(s): R33.9 - RETENTION OF URINE, UNSPECIFIED SNOMED Code(s): 912759286 (5) Diabetes mellitus Current Visit: Yes Status: Acute Code(s): E11.9 - TYPE 2 DIABETES MELLITUS WITHOUT COMPLICATIONS SNOMED Code(s): 70808688 (6) Atherosclerosis of [place] arteries of extremities with intermittent claudication, bilateral legs Current Visit: Yes Status: Acute Code(s): I70.213 - ATHSCL [place] ARTERIES OF EXTRM W INTRMT SCOOTER, BI LEGS SNOMED Code(s): 28380124795669730 Plan: Patient may be discharged from medical standpoint when cleared by surgeon and other consultants Patient seen and evaluated by nurse practitioner, physician in agreement with plan
--- NOTE | 2023-05-03 10:24 | XR ---
EXAMINATION TYPE: XR chest 1V DATE OF EXAM: 05/03/2023 COMPARISON: 02/23/2023 HISTORY: 68 year-old male shortness of breath TECHNIQUE: Single frontal view of the chest is obtained. FINDINGS: Heart normal size. Aorta and pulmonary vasculature within normal limits. Hardware. No consolidation o r pleural effusion. IMPRESSION: No acute process.
--- NOTE | 2023-05-03 10:35 | P.DS ---
Providers Date of admission: 04/30/23 05:35 Expected date of discharge: 05/03/23 Attending physician: Amadou Barrett DO Consults: 04/30/23 10:16 Consult Physician Routine Consulting Provider: Reuben Nicholson Consult Reason/Comments: medical management Do you want consulting provider notified?: Yes 05/01/23 08:30 Consult Physician Stat Consulting Provider: Alexandro Mina Consult Reason/Comments: CODE STROKE S/P RIGHT CAROTID ENDARTERECTOMY Do you want consulting provider notified?: Yes Primary care physician: Reuben Nicholson Hospital Course: 68-year-old male with symptomatic right internal carotid artery stenosis greater than 90% who had possible TIA with left upper extremity numbness as well as vision changes on the right secondary to possible TIAs in the past. He presented for right carotid endarterectomy with patch angioplasty on 04/30/2023. He is postop day #3. During his postoperative stay he had some left-sided weakness especially noted as sluggish and in dexterity of the left hand. He then he had reported some difficulty with swallowing and a code stroke was initiated on postop day #1. He had brain CT that was normal. He underwent a CT angiogram of the head and neck as well as a carotid ultrasound that had reported short segment linear defect within the distal right common carotid artery representing possible postsurgical change versus short segment dissection this was an expected finding without any limiting flow. Neurology was consulted and MRI of the brain was ordered that did report acute ischemic changes to the right parietal lobe and right occipital lobe cortex. PT, OT, and speech therapy were consulted and had seen patient. Patient's symptoms have nearly resolved left upper extremity weakness has significantly improved. Swallow evaluation was deemed normal although patient states he still feels as though he has some difficulty with swallowing. He was also started on Flomax for urinary retention which is resolved. He has been up and ambulating the hallway several times. No noted focal deficits today and no new focal deficits reported. He does state that he felt as though he cannot take as deep of breath as he would like. A chest x-ray ordered and reviewed with no acute process. Incentive spirometer to bedside. He has been started on aspirin 81 mg daily, Plavix 75 mg daily as well as high-dose statin, atorvastatin 80 mg at bedtime. Plan will be for discharge home this afternoon once neurology clears patient. General appearance: The patient is alert, oriented, appears in no acute distress. HET: Head is normocephalic and atraumatic. Pupils are equal and reactive. Neck: Supple. Right-sided neck with incision with some mild swelling, no hematoma noted. No bleeding, drainage or redness. Heart: Regular. Lungs: Equal expansion, normal respiratory effort. Clear to auscultation. Abdomen: Soft, nontender, nondistended. Extremities: Normal skin color and turgor. Neurological: Patient is alert and oriented. He has been ambulating without difficulty. Upper and lower strength and tone equal. Patient has facial symmetry, speech is fluent and he is able to follow all commands. Assessment: 1. Right carotid endarterectomy with patch angioplasty for hemodynamically significant right internal carotid artery stenosis 2. Left hand weakness and dysphagia 3. Intimal flap within the right common carotid artery/dissection reported per carotid duplex and CT angiogram expected finding post carotid endarterectomy with no limiting flow noted 4. Acute ischemic change to right parietal lobe and right occipital lobe cortex possibly secondary to hypoperfusion 5. Urinary retention, resolved Plan: 1. Encourage ambulation 2. Flomax 0.4 mg started 3. Regular diet 4. MRI brain ordered and reviewed 5. CT angiogram head and neck ordered and reviewed independently by Dr. Barrett 6. Carotid duplex ordered and reviewed independently by Dr. Barrett 7. Continue with recommendations per neurology 8. PT, OT and speech therapy consulted. Recommendations were appreciated. Patient was cleared to be discharged home without any further therapy. 9. Continue aspirin 81 mg, Plavix 75 mg added and increased atorvastatin to 80 mg daily 10. Patient is cleared by primary medical team 11. Plan for discharge home today. CTA and carotid Doppler imaging both reviewed by Dr. Barrett which demonstrates proximal dissection which is the aspect of plaque that was cut in the operating room. Dissection flap is not occlusive and during OR the flow was not diminished and therefore no surgical intervention indicated. The impression and plan of care has been dictated as directed. I performed a history and examination of this patient, discussed the same with the dictator. I agree with the dictator's note ,documented as a scribe. Any additional findings or plans will be noted. Procedures: Right carotid endarterectomy with patch angioplasty Patient Condition at Discharge: Stable Plan - Discharge Summary Discharge Rx Participant: Yes New Discharge Prescriptions: New Clopidogrel [Plavix] 75 mg PO DAILY #30 tab Acetaminophen Tab [Tylenol] 650 mg PO Q4HR PRN tab PRN Reason: Pain Tamsulosin [Flomax] 0.4 mg PO PC-BRKFST #30 cap Atorvastatin [Lipitor] 80 mg PO DAILY #30 tab Continue Dextroamphetamine/Amphetamine [Adderall] 20 mg PO DAILY Aspirin 81 mg PO DAILY #0 chew Metoprolol Tartrate [Lopressor] 12.5 mg PO BID Fluticasone Nas[place] [Flonase Nasal [place]] 2 spray EA NOSTRIL DAILY Discontinued Naproxen [Naprosyn] 500 mg PO BID PRN PRN Reason: Pain Rosuvastatin [Crestor] 20 mg PO DAILY Empagliflozin [Jardiance] 25 mg PO DAILY Discharge Medication List Dextroamphetamine/Amphetamine [Adderall] 20 mg PO DAILY 05/22/16 [History] Aspirin 81 mg PO DAILY #0 chew 05/12/20 [Rx] Metoprolol Tartrate [Lopressor] 12.5 mg PO BID 02/16/23 [History] Fluticasone Nas[place] [Flonase Nasal [place]] 2 spray EA NOSTRIL DAILY 04/23/23 [History] Acetaminophen Tab [Tylenol] 650 mg PO Q4HR PRN tab 05/03/23 [Rx] Atorvastatin [Lipitor] 80 mg PO DAILY #30 tab 05/03/23 [Rx] Clopidogrel [Plavix] 75 mg PO DAILY #30 tab 05/03/23 [Rx] Tamsulosin [Flomax] 0.4 mg PO PC-BRKFST #30 cap 05/03/23 [Rx] Follow up Appointment(s)/Referral(s): Amadou Barrett DO [STAFF PHYSICIAN] - 1 Week Reuben Nicholson MD [Primary Care Provider] - 1 Week Patient Instructions/Handouts: Carotid Endarterectomy (DC) Activity/Diet/Wound Care/Special Instructions: No heavy lifting or strenuous activity for at least 2 weeks. None as tolerated. No driving until cleared by surgeon. May shower but no tub bathing or soaking until cleared by surgeon Monitor incision for any redness, drainage, bleeding, fevers greater than 100.4 Continue to use incentive spirometer as needed Discharge Disposition: HOME SELF-CARE
[2023-05-03] MEDS: SENNOSIDES-DOCUSATE SODIUM 1 EACH TAB PO STA (10:59)
[2023-05-03 11:44] LABS: Glucose,Whole Blood 140 mg/dL (70-110)
[2023-05-03 11:52] VITALS: BP 159/77; PULSE 78; TEMP 97.4; BMI 28.3
--- NOTE | 2023-05-03 17:26 | P.PN ---
Subjective Progress Note Date: 05/03/23 I am following-up with patient and he feels he is about the same and denies any worsening of his neurological symptoms. Denies of any neurological issues. Objective - Vital Signs Vital signs: Vital Signs Temp 97.4 F L 05/03/23 11:21 Pulse 78 05/03/23 11:21 Resp 18 05/03/23 11:21 BP 159/77 05/03/23 11:21 Pulse Ox 94 L 05/03/23 11:21 FiO2 Intake & Output 05/02/23 05/03/23 05/03/23 18:59 06:59 18:59 Intake Total 776 240 118 Output Total 900 Balance -124 240 118 Weight 94.6 kg Intake: Oral 776 240 118 Output: Urine 900 Other: # Voids 2 1 - Exam General: Sitting in a recliner chair and is not in acute distress. HENT: Has scar on the right side of neck. Neuro: The patient is awake, alert, oriented to self, place and time. Is following simple commands. No aphasia or neglect. Pupils are round, equal (3-4mm) reactive to light equally. Visual santana are full to confrontation. EOM intact and no nystagmus. Mild left nasolabial flattening. No dysarthria. Motor: Gait is normal. Strength is having some difficulty dystrexity of the left hand, left hand driver recruiter is 5-. Otherwise 5/5 throughout. Sensation is normal to touch throughout. Cerebellar: Normal finger to nose. Reflexes: 2+ throughout. Plantars are mute bilaterally. Some of the work-up during this hospital visit consisted of: Serum glucose in 120's HbA1c: 9.3 Lipid panels triglyceride of 120, cholesterol is 1:15, LDL is 44 and HDL is 46. CT head is reported as no acute intracranial process. I personally reviewed CT head and agree there is no acute or subacute ischemic stroke or bleed. CTA head neck is reported as postsurgical changes from right endarterectomy with a short segment linear defect identified within the distal right common carotid artery. This may represent postsurgical change vs short segment dissection. No evidence of dissection left internal carotid artery or vertebral arteries. Approximately 50% stenosis at proximal left internal carotid artery secondary due to calcified plaque. No evidence of intracranial aneurysm or benitez grade intracranial stenosis. Carotid duplex: It is reported there appears to be intimal flap in right common carotid and felt dissection until proven otherwise. MRI Brain and Cervical spine: It is reported as acute ischemic private branch exchange installer the right parietal lobe and right occipital lobe cortex. Additional chronic appearing periventricular white matter ischemic changes. I personally reviewed the MRI of the brain and I agree there acute ischemic changes over the right parietal-frontal region. I personally reviewed that MRI the cervical spine and there is no myelomalacia or any significant abnormality that lead to his symptoms in my opinion. 2D echo: It is reported as a ejection fraction of 60-65%. Normal left ventricle systolic function with no obvious regional wall motion abnormality. No significant valvular dysfunction. - Labs CBC & Chem 7: 05/01/23 09:54 05/01/23 09:54 Labs: Abnormal Lab Results - Last 24 Hours (Table) 05/02/23 05/03/23 05/03/23 Range/Units 20:12 06:04 11:42 POC Glucose (mg/dL) 159 H 149 H 140 H (70-110) mg/dL Assessment and Plan Assessment: This is a 68 y/o gentleman with history of severe right ICA stenosis >90% on MRA and has possible tia (visual disturbance and numbness left upper extremity) who underwent right internal carotid endarterectomy with angioplasty on 04/30/23 early in morning and then by 12-1pm yesterday he noticed dysphagia, left sided weakness, numbness, slurring of speech. Also states having urinary and bowel issues since surgery. CT head is negative. CTA head and neck and carotid duplex is concern for right ICA dissection. Acute ischemic stroke (symptoms Dysphagia, left side weakness, numbness, dysarthria, urinary and bowel issues and visual disturbance). Etiology is embolic from recent surgery (endarterectomy). No IV thrombolytic since outside window. Symptoms is drastically improving. MRI reported as acute ischemic stroke over the right parietal-occipital but I felt it was more parietal-frontal region. Concerning for right carotid dissection on CTA and duplex. I spoke with a dif ferent radiologist overnight and he reviewed images and felt it was not dissection but felt these finding are surgical findings from incision. History of possible TIA with visual disturbance and left upper extremity numbness Diabetes Mellitus and HbA1c is 9.3 Plan: In addition to his home ASA 81mg daily. Plavix 75mg was started by vascular surgery team. Lipitor increased from 40mg to 80mg for secondary stroke prophylaxis. It is reported by that he reviewed the images and the he felt the proximal dissection which is the aspect of plaque that was caught in the operating room. Dissection flap is not occlusive and during OR the flow was not diminished and therefore no surgical intervention is indicated. I spoke with Dr. Cisse (reading radiologist) and he reviewed images and felt it was not dissection but felt these finding are surgical findings from incision. Q4 hour neuro checks. Cardiac monitoring. PT, OT and HEALTHCARE INSURANCE SALES AGENT are consulted. Will defer the rest of management to vascular and primary team. For DVT prophylaxis: On Lovenox. Upon discharge recommend the patient to follow-up with a neurologist as an outpatient within 1-2 weeks. The plan is discussed in length with patient, vascular surgery team as well his nurse. He is clear from a neurological perspective. Time with Patient: Less than 30
== END 2023-05-03 13:23 | disposition home or self-care (01) | DRG 37 ==
LOC: 2ORMAIN 05:35 → 3SCARD 14:42
PROVIDERS: ADMIT Surgery; ATTEND Surgery
PROC: 03UK0KZ Supplement Right Internal Carotid Artery with Nonautologous Tissue Substitute, Open Approach (ICD-10-PCS; principal; 2023-04-30 07:30)
PROC: 03CK0ZZ Extirpation of Matter from Right Internal Carotid Artery, Open Approach (ICD-10-PCS; principal; 2023-04-30 07:30)
DX: I65.23 Occlusion and stenosis of bilateral carotid arteries (principal); I63.40 Cerebral infarction due to embolism of unspecified cerebral artery; G81.94 Hemiplegia, unspecified affecting left nondominant side; I97.820 Postprocedural cerebrovascular infarction following cardiac surgery; R13.10 Dysphagia, unspecified; R47.1 Dysarthria and anarthria; M48.02 Spinal stenosis, cervical region; J32.0 Chronic maxillary sinusitis; R33.9 Retention of urine, unspecified; G47.30 Sleep apnea, unspecified; I70.213 Atherosclerosis of native arteries of extremities with intermittent claudication, bilateral legs; E11.51 Type 2 diabetes mellitus with diabetic peripheral angiopathy without gangrene; I25.10 Atherosclerotic heart disease of native coronary artery without angina pectoris; F98.8 Other specified behavioral and emotional disorders with onset usually occurring in childhood and adolescence; F17.200 Nicotine dependence, unspecified, uncomplicated; E78.5 Hyperlipidemia, unspecified; Z88.8 Allergy status to other drugs, medicaments and biological substances; Z86.73 Personal history of transient ischemic attack (TIA), and cerebral infarction without residual deficits; Z96.643 Presence of artificial hip joint, bilateral; Z79.899 Other long term (current) drug therapy; Z79.84 Long term (current) use of oral hypoglycemic drugs; Z79.82 Long term (current) use of aspirin; I25.2 Old myocardial infarction; Z87.440 Personal history of urinary (tract) infections; Z86.16 Personal history of COVID-19; Z88.1 Allergy status to other antibiotic agents; Z88.0 Allergy status to penicillin
CPT/HCPCS: 70450; 70496; 70498; 70551; 71045; 72141; 80053; 80061; 83036; 84484; 85025; 85610; 85730; 88304; 88311; 93306; 93880

== ENCOUNTER → 2023-08-24 | Outpatient (CLI) | payer OTHER ==
[2023-08-24 14:33] LABS: African American GFR (CKD) 87 (>60 ml/min/1.73 sqM); Blood Urea Nitrogen 12 mg/dL (9-20); Non-African American GFR(CKD) 75 (>60 ml/min/1.73 sqM)
--- NOTE | 2023-09-13 09:49 | CT ---
EXAMINATION TYPE: CT angio abd aorta w/Runoff CT DLP: 1842.0 mGycm, Automated exposure control for dose reduction was used. DATE OF EXAM: 08/24/2023 3:27 PM COMPARISON: . . CLINICAL INDICATION:Male, 68 years old with history of I70.213 ATHSCL [place] ARTERIES OF EXTRM W INTR MT C; PHH, b/l leg pain and cramping TECHNIQUE: Multiple thin slice sub-millimeter images were obtained after administration of contrast. 3-D reconstructed images and maximum intensity projection images were obtained. CT angio abd aorta w /Runoff CT Contrast: Contrast used:100ml mL of Isovue 370 without and with IV Contrast, Oral contrast used: None FINDINGS: Lower chest: Included lung bases show minor scarring and/or subsegmental atelectasis. No pleural or p ericardial effusion. CTA Abdomen and pelvis: The visualized heart is not enlarged. A few coronary arterial calcifications are seen. There is moder ate mixed atherosclerotic disease throughout the aorta and branches. Mild to moderate narrowing of th e proximal celiac, mild narrowing of the proximal superior mesenteric arteries. [id number] sten osis of the proximal right renal artery, mild stenosis on the left. There is bilobed ectasia of the infrarenal aorta. Superiorly, maximum diameter is 2.9 x 2.4 cm. More inferiorly, additional ectatic segment is 2.6 x 2.3 cm. The bifurcation is patent. There is moderate diffuse mixed disease throughout both iliac arterial trees. No occlusion, critical stenosis or aneury sm seen. Right: There is diffuse mixed atherosclerotic disease throughout. The common femoral and superficial femoral arteries appear patent. However in the mid to distal thigh there is a long segment of irregul arity of the superficial femoral artery which raises concern for tandem stenoses which may limit flow . The popliteal artery shows milder disease and remains patent. Patent trifurcation is seen. The bran ch vessels are diffusely diseased throughout the leg, and become diminutive distally. The only defini te patent enhancing vessel at the crossing of the ankle is the posterior tibial. Left: Focal stenosis in the distal superficial femoral artery in the mid to distal thigh causes lumin al stenosis of about 75%. Vessel is patent distally with diffuse disease through the popliteal artery area which remains patent. There is a patent trifurcation with the 3 runoff vessels diffusely diseas ed throughout the calf. These appear heterogeneous with some segments of tapering and near occlusion noted. The only definitely enhancing vessel across the ankle is the posterior tibial. Non--- CTA: No acute soft tissue abnormality is shown. A lipoma is present within the left medial thigh musculatu re. Small to moderate left and small right inguinal fat-containing hernias. Moderate diffuse degenera tive changes including the lumbar spine. No definite acute bony abnormalities are identified. There a re bilateral total hip arthroplasties in place. Non--- CTA: Heart size upper normal. Mild dependent atelectasis in the lung bases. Liver, gallbladder, biliary tree, spleen, pancreas, adrenals show no concerning abnormalities. The kidneys enhance symmetrically with no evidence of mass or hydronephrosis. Mildly prominent extra renal pelves without dilated ureters seen. The bladder is grossly unremarkable but evaluation of the pelvis is somewhat limited by streak artifacts from bilateral hip arthroplasties. Prostate appears mi ldly prominent with parenchymal calcifications and/or brachytherapy seeds. No pelvic adenopathy is se en. Mild to moderate stool in the visualized colon. Multiple distal colonic diverticula without evide nce of diverticulitis. Normal appendix. No free fluid or free air. iMPRESSION: 1. Diffuse atherosclerotic disease involving the aorta and lower extremity vasculature, detailed abov e. 2. No evidence of vascular occlusion. 3. Bilobed ectasia of the infrarenal aorta, largest segment 2.9 x 2.4 cm. 4. Diffuse disease below the knee bilaterally, with a single patent vessel seen crossing the ankle bi laterally. 5. Other chronic and likely incidental findings, as described above.
== END | disposition home or self-care (01) ==
LOC: RADCTMAIN 13:36
PROVIDERS: ATTEND Surgery
DX: I70.213 Atherosclerosis of native arteries of extremities with intermittent claudication, bilateral legs (principal); I70.0 Atherosclerosis of aorta; I77.811 Abdominal aortic ectasia; M89.8X6 Other specified disorders of bone, lower leg
CPT/HCPCS: 82565; 84520; 75635; 36415; Q9967

== ENCOUNTER 2024-07-31 10:38 | Observation (INO) | payer MEDICARE ==
[2024-07-31 11:03] LABS: Glucose,Whole Blood 327 mg/dL (70-110)
--- NOTE | 2024-07-31 11:25 | ED ---
General Adult HPI - General Chief complaint: Recheck/Abnormal Lab/Rx Stated complaint: Hyperglycemia Time Seen by Provider: 07/31/24 11:04 Source: patient, RN notes reviewed Mode of arrival: ambulatory Limitations: no limitations - History of Present Illness Initial comments: Patient is a 77-year-old male present to the emergency department with concerns for hyperglycemia. Patient was at primary care physician's not long ago with hypoglycemia. Patient did go to orthopedic yesterday and had steroid injection. Blood sugar has been running high since then. Patient went to urgent care last night with high blood sugar. He called him again today and they advised him to come here. Blood sugar has been as high as 598 at home. Patient has polyuria, polydipsia and mild blurry vision. - Related Data Home Medications Medication Instructions Recorded Confirmed Dextroamphetamine/Amphetamine 20 mg PO DAILY 05/22/16 04/30/23 [Adderall] Metoprolol Tartrate [Lopressor] 12.5 mg PO BID 02/16/23 04/30/23 Fluticasone Nasal [place] [Flonase 2 spray EA NOSTRIL DAILY 04/23/23 04/30/23 Nasal [place]] Previous Rx's Medication Instructions Recorded Aspirin 81 mg PO DAILY #0 chew 05/12/20 Acetaminophen Tab [Tylenol] 650 mg PO Q4HR PRN tab 05/03/23 Atorvastatin [Lipitor] 80 mg PO DAILY #30 tab 05/03/23 Clopidogrel [Plavix] 75 mg PO DAILY #30 tab 05/03/23 Tamsulosin [Flomax] 0.4 mg PO PC-BRKFST #30 cap 05/03/23 Allergies Allergy/AdvReac Type Severity Reaction Status Date / Time duloxetine [From Cymbalta] Allergy Severe throat Verified 07/31/24 11:02 swelling, could not swallow prochlorperazine Allergy Severe states Verified 07/31/24 11:02 [From Compazine] "tongue stuck out and body stiffened" acyclovir Allergy Swelling Verified 07/31/24 11:02 levofloxacin [From Levaquin] Allergy Swelling Verified 07/31/24 11:02 Penicillins Allergy Swelling Verified 07/31/24 11:02 poison dylon extract Allergy generalized Verified 07/31/24 11:02 blisters and pain-goes ER poison oak extract Allergy generalized Verified 07/31/24 11:02 blisters and pain-goes ER poison sumac extract Allergy generalized Verified 07/31/24 11:02 blisters and pain-goes ER pregabalin [From Lyrica] AdvReac can't Verified 07/31/24 11:02 walk, muscle and joint pain Review of Systems ROS Statement: Those systems with pertinent positive or pertinent negative responses have been documented in the HPI. ROS Other: All systems not noted in ROS Statement are negative. Constitutional: Denies: fever Eyes: Reports: as per HPI. Denies: eye pain ENT: Denies: ear pain Respiratory: Denies: cough Cardiovascular: Denies: chest pain Endocrine: Reports: polydipsia, polyuria. 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 frequent UTI, covid infection 2021, this surgery was cancelled in Jan.-sick w/URI & cough-all resolved Last Myocardial Infarction Date:: 2020 History of Any Multi-Drug Resistant Organisms: None Reported Past Surgical History: Heart Catheterization With Stent, Joint Replacement, Orthopedic Surgery Additional Past Surgical History / Comment(s): cervical fusion, faustina hip replacement, septoplasty, arthroscopy rt knee Past Anesthesia/Blood Transfusion Reactions: No Reported Reaction Additional Past Anesthesia/Blood Transfusion Reaction / Comment(s): sever alg compazine. no hx blood transfusion Date of Last Stent Placement:: 05/10/2020 Past Psychological History: ADD/ADHD Smoking Status: Former smoker Past Alcohol Use History: None Reported Past Drug Use History: None Reported - Past Family History Mother Family Medical History: Cancer, Deep Vein Thrombosis (DVT) General Exam Limitations: no limitations General appearance: alert, in no apparent distress Head exam: Present: normocephalic Eye exam: Present: normal appearance, PERRL, EOMI ENT exam: Present: mucous membranes dry Neck exam: Present: normal inspection Respiratory exam: Present: normal lung sounds bilaterally Cardiovascular Exam: Present: regular rate, normal rhythm GI/Abdominal exam: Present: soft. Absent: tenderness Extremities exam: Present: normal inspection. Absent: pedal edema, calf tenderness Neurological exam: Present: alert. Absent: motor sensory deficit Psychiatric exam: Present: normal affect, normal mood Skin exam: Present: normal color Course Vital Signs 07/31/24 07/31/24 10:58 13:01 Temperature 97.8 F Pulse Rate 77 71 Respiratory 18 20 Rate Blood Pressure 166/74 129/74 O2 Sat by Pulse 97 98 Oximetry EKG Findings - EKG Results: EKG: interpreted by ANDER (Septal Q waves), sinus rhythm, normal axis, normal ST/T Medical Decision Making - Medical Decision Making Was pt. sent in by a medical professional or institution (, PA, IT SECURITY ARCHITECT, urgent care, hospital, or senior living...) When possible be specific @ -Patient was sent from urgent [facility], Did you speak to anyone other than the patient for history (EMS, parent, family, police, friend...)? What history was obtained from this source @ -No Did you review nursing and triage notes (agree or disagree)? Why? @ -I reviewed and agree with nursing and triage notes Were old charts reviewed (outside hosp., previous admission, EMS record, old EKG, old radiological studies, urgent care reports/EKG's, senior living records)? Report findings @ -No old charts were reviewed Differential Diagnosis (chest pain, altered mental status, abdominal pain women, abdominal pain men, vaginal bleeding, weakness, fever, dyspnea, syncope, headache, dizziness, GI bleed, back pain, seizure, CVA, palpatations, mental health, musculoskeletal)? @ -Differential Weakness: Hypoglycemia, shock, sepsis, hyponatremia, anemia, infection, CA, ETOH, adverse medicine reaction, overdose, stroke, this is not meant to be an all-inclusive list. EKG interpreted by me (3pts min.). @ -As above X-rays interpreted by me (1pt min.). @ -Chest x-ray shows no acute process CT interpreted by me (1pt min.). @ -None done U/S interpreted by me (1pt. min.). @ -None done What testing was considered but not performed or refused? (CT, X-rays, U/S, labs)? Why? @ -None What meds were considered but not given or refused? Why? @ -None Did you discuss the management of the patient with other professionals (professionals i.e. , PA, IT SECURITY ARCHITECT, lab, RT, psych nurse, secondary social studies teacher, glue bone crusher, teacher, administrative hearing officer, case assembler)? Give summary @ -Case was discussed with Dr. Nicholson who is familiar with this patient and will admit for fluids. Was smoking cessation discussed for >3mins.? @ -No Was critical care preformed (if so, how long)? @ -No Were there social determinants of health that impacted care today? How? (Homelessness, low income, unemployed, alcoholism, drug addiction, transportation, low edu. Level, literacy, decrease access to med. care, care home, rehab)? @ -No Was there de-escalation of care discussed even if they declined (Discuss DNR or withdrawal of care, Hospice)? DNR status @ -No What co-morbidities impacted this encounter? (DM, HTN, Smoking, COPD, CAD, Cancer, CVA, ARF, Chemo, Hep., AIDS, mental health diagnosis, sleep apnea, morbid obesity)? @ -Diabetic Was patient admitted / discharged? Hospital course, mention meds given and route, prescriptions, significant lab abnormalities, going to OR and other pertinent info. @ -Patient presents with hyperglycemia, polyuria, polydipsia and blurred vision. Patient does have positive acetone however CO2 is only 21. Blood sugars improved. Patient will be admitted for IV fluids. Patient reevaluated and updated. Undiagnosed new problem with uncertain prognosis? @ -No Drug Therapy requiring intensive monitoring for toxicity (Heparin, Nitro, Insulin, Cardizem)? @ -No Were any procedures done? @ -No Diagnosis/symptom? @ -Hyperglycemia Acute, or Chronic, or Acute on Chronic? @ -Acute Uncomplicated (without systemic symptoms) or Complicated (systemic symptoms)? @ -Default Side effects of treatment? @ -No Exacerbation, Progression, or Severe Exacerbation? @ -No Poses a threat to life or bodily function? How? (Chest pain, USA, CA, pneumonia, PE, COPD, DKA, ARF, appy, cholecystitis, CVA, Diverticulitis, Homicidal, Suicidal, threat to staff... and all critical care pts) @ -No - Lab Data Result diagrams: 07/31/24 11:30 07/31/24 11:30 Lab Results 07/31/24 07/31/24 07/31/24 Range/Units 11:02 11:30 11:30 WBC 17.07 H (4.50-10.00) 10*3/uL RBC 4.58 (4.40-5.60) 10*6/uL Hgb 14.9 (13.0-17.0) g/dL Hct 41.7 (39.6-50.0) % MCV 91.0 (80.0-97.0) fL MCH 32.5 H (27.0-32.0) pg MCHC 35.7 (32.0-37.0) g/dL Plt Count 275 (140-440) 10*3/uL MPV 9.9 (9.5-12.2) fL Immature Gran % (Auto) 0.5 % Neutrophils % 79.9 % Lymphocytes % 12.1 % Monocytes % 7.0 % Eosinophils % 0.3 % Basophils % 0.2 % Immature Gran # 0.08 H (0.00-0.04) 10*3/uL Neutrophils # 13.65 H (1.80-7.70) 10*3/uL Lymphocytes # 2.06 (0.90-5.00) 10*3/uL Monocytes # 1.19 H (0.20-1.00) 10*3/uL Eosinophils # 0.05 (0.04-0.35) 10*3/uL Basophils # 0.04 (0.00-0.10) 10*3/uL PT 9.8 L (10.0-12.5) sec INR 0.9 (<1.2) APTT 20.5 L (22.0-30.0) sec Sodium (137-145) mmol/L Potassium (3.5-5.1) mmol/L Chloride (98-107) mmol/L Carbon Dioxide (22-30) mmol/L Anion Gap mmol/L BUN (9-20) mg/dL Creatinine (0.66-1.25) mg/dL Est GFR (CKD-EPI)AfAm (>60 ml/min/1.73 sqM) Est GFR (CKD-EPI)NonAf (>60 ml/min/1.73 sqM) Glucose (74-99) mg/dL POC Glucose (mg/dL) 327 H (70-110) mg/dL POC Glu Hydraulic Press Operator ID Arminda Morris Plasma Lactic Acid [place] (0.7-2.0) mmol/L Calcium (8.4-10.2) mg/dL Magnesium (1.6-2.3) mg/dL Total Bilirubin (0.2-1.3) mg/dL AST (17-59) U/L ALT (4-49) U/L Alkaline Phosphatase (38-126) U/L Total Protein (6.3-8.2) g/dL Albumin (3.5-5.0) g/dL Acetone, Qual (Negative) 07/31/24 07/31/24 07/31/24 Range/Units 11:30 11:30 13:32 WBC (4.50-10.00) 10*3/uL RBC (4.40-5.60) 10*6/uL Hgb (13.0-17.0) g/dL Hct (39.6-50.0) % MCV (80.0-97.0) fL MCH (27.0-32.0) pg MCHC (32.0-37.0) g/dL Plt Count (140-440) 10*3/uL MPV (9.5-12.2) fL Immature Gran % (Auto) % Neutrophils % % Lymphocytes % % Monocytes % % Eosinophils % % Basophils % % Immature Gran # (0.00-0.04) 10*3/uL Neutrophils # (1.80-7.70) 10*3/uL Lymphocytes # (0.90-5.00) 10*3/uL Monocytes # (0.20-1.00) 10*3/uL Eosinophils # (0.04-0.35) 10*3/uL Basophils # (0.00-0.10) 10*3/uL PT (10.0-12.5) sec INR (<1.2) APTT (22.0-30.0) sec Sodium 135 L (137-145) mmol/L Potassium 4.7 (3.5-5.1) mmol/L Chloride 101 (98-107) mmol/L Carbon Dioxide 21 L (22-30) mmol/L Anion Gap 13 mmol/L BUN 29 H (9-20) mg/dL Creatinine 0.83 (0.66-1.25) mg/dL Est GFR (CKD-EPI)AfAm >90 (>60 ml/min/1.73 sqM) Est GFR (CKD-EPI)NonAf 89 (>60 ml/min/1.73 sqM) Glucose 295 H (74-99) mg/dL POC Glucose (mg/dL) 239 H (70-110) mg/dL POC Glu Hydraulic Press Operator ID Héctor Leslie Plasma Lactic Acid [place] 1.4 (0.7-2.0) mmol/L Calcium 10.5 H (8.4-10.2) mg/dL Magnesium 2.3 (1.6-2.3) mg/dL Total Bilirubin 0.6 (0.2-1.3) mg/dL AST 31 (17-59) U/L ALT 36 (4-49) U/L Alkaline Phosphatase 109 (38-126) U/L Total Protein 7.1 (6.3-8.2) g/dL Albumin 4.5 (3.5-5.0) g/dL Acetone, Qual Positive (Negative) Disposition Clinical Impression: Hyperglycemia Disposition: ADMITTED IP TO THIS HOSP Is patient prescribed a controlled substance at d/c from ED?: No Referrals: Reuben Nicholson MD [Primary Care Provider] - 1-2 days Time of Disposition: 14:17
[2024-07-31 11:50] LABS: Basophils # (A) 0.04 10*3/uL (0.00-0.10); Basophils % (A) 0.2 %; Eosinophils # (A) 0.05 10*3/uL (0.04-0.35); Eosinophils % (A) 0.3 %; HCT 41.7 % (39.6-50.0); HGB 14.9 g/dL (13.0-17.0); Lymphocytes # (A) 2.06 10*3/uL (0.90-5.00); Lymphocytes % (A) 12.1 %; MCH 32.5 pg (27.0-32.0); MCHC 35.7 g/dL (32.0-37.0); Mean Platelet Volume 9.9 fL (9.5-12.2); Monocytes # (A) 1.19 10*3/uL (0.20-1.00); Neutrophils # (A) 13.65 10*3/uL (1.80-7.70); Neutrophils % (A) 79.9 %; Platelet Count 275 10*3/uL (140-440); RBC 4.58 10*6/uL (4.40-5.60); RDW 12.5 % (11.5-14.5); WBC 17.07 10*3/uL (4.50-10.00)
[2024-07-31 12:04] LABS: ALT 36 U/L (4-49); AST 31 U/L (17-59); African American GFR (CKD) >90 (>60 ml/min/1.73 sqM); Albumin 4.5 g/dL (3.5-5.0); Alkaline Phosphatase 109 U/L (38-126); Anion Gap 13 mmol/L; Blood Urea Nitrogen 29 mg/dL (9-20); Calcium 10.5 mg/dL (8.4-10.2); Carbon Dioxide 21 mmol/L (22-30); Chloride 101 mmol/L (98-107); Glucose 295 mg/dL (74-99); Magnesium 2.3 mg/dL (1.6-2.3); Non-African American GFR(CKD) 89 (>60 ml/min/1.73 sqM); Potassium 4.7 mmol/L (3.5-5.1); Sodium 135 mmol/L (137-145); Total Bilirubin 0.6 mg/dL (0.2-1.3); Total Protein 7.1 g/dL (6.3-8.2)
[2024-07-31 12:17] LABS: INR 0.9 (<1.2); Prothrombin Time 9.8 sec (10.0-12.5)
[2024-07-31 12:21] LABS: Partial Thromboplastin Time 20.5 sec (22.0-30.0)
--- NOTE | 2024-07-31 12:56 | XR ---
EXAMINATION TYPE: XR chest 2V DATE OF EXAM: 07/31/2024 12:41 PM COMPARISON: 05/03/2023 CLINICAL INDICATION: Male, 69 years old with history of Weakness, , TECHNIQUE: PA and lateral views FINDINGS: The cardiomediastinal silhouette, aorta, and pulmonary vasculature are within normal limits. Lungs an d pleural spaces are clear. ACDF hardware. DISH thoracic spine. IMPRESSION: No acute cardiopulmonary process. [facility], Workstation: [email or web address]-DONNA, 07/31/2024 12:54 PM
[2024-07-31] MEDS: SODIUM CHLORIDE 0.9% 1,000 ML IV SCH ×2 (13:00→16:24)
[2024-07-31 13:33] LABS: Glucose,Whole Blood 239 mg/dL (70-110)
[2024-07-31] MEDS ORDERED: ACETAMINOPHEN TAB 325 MG TAB PO PRN (14:19)
[2024-07-31] MEDS ORDERED: DEXTROSE 50% SYRINGE 50 ML IVP PRN ×2 (14:19)
[2024-07-31] MEDS ORDERED: NALOXONE 0.4 MG/ML 1 ML VIAL IV PRN (14:19)
[2024-07-31] MEDS: NON FORMULARY DRUG (Dextroamphetamine/Amphetamine [Adderall] 20 MG Tablet) PO SCH (17:03)
[2024-07-31] MEDS: ATORVASTATIN 80 MG TAB PO SCH (17:22)
[2024-07-31 17:24] LABS: Glucose,Whole Blood 195 mg/dL (70-110)
[2024-07-31] MEDS: INSULIN LISPRO (HumaLOG) 100 UNIT/ML 10 mL VL SQ SCH (17:24)
[2024-07-31 19:23] LABS: Glucose,Whole Blood 216 mg/dL (70-110)
[2024-07-31] MEDS: METOPROLOL TARTRATE 12.5 MG TAB PO SCH (20:01)
[2024-08-01 05:53] LABS: Glucose,Whole Blood 197 mg/dL (70-110)
[2024-08-01] MEDS: ASPIRIN 81 MG PO SCH (09:17)
[2024-08-01] MEDS: CLOPIDOGREL 75 MG TAB PO SCH (09:17)
[2024-08-01 10:15] LABS: Basophils # (A) 0.06 X 10*3/uL (0.00-0.10); Basophils % (A) 0.6 %; Eosinophils # (A) 0.26 X 10*3/uL (0.04-0.35); Eosinophils % (A) 2.6 %; HCT 40.9 % (39.6-50.0); HGB 13.7 g/dL (13.0-17.0); Lymphocytes % (A) 28.1 %; MCH 31.9 pg (27.0-32.0); MCHC 33.5 g/dL (32.0-37.0); MCV 95.3 FL (80.0-97.0); Monocytes # (A) 0.67 X 10*3/uL (0.20-1.00); Monocytes % (A) 6.7 %; NRBC Per 100 WBC 0 X 10*3/uL (0.00-0.01); Neutrophils # (A) 6.14 X 10*3/uL (1.80-7.70); Neutrophils % (A) 61.7 %; Platelet Count 247 X 10*3/uL (140-440); RBC 4.29 X 10*6/uL (4.40-5.60); RDW 13.2 % (11.5-14.5); WBC 9.96 X 10*3/uL (4.50-10.00)
[2024-08-01 10:32] LABS: ALT 30 U/L (10-49); AST 19 U/L (14-35); Albumin/Globulin Ratio 2.11 Ratio (1.60-3.17); Alkaline Phosphatase 85 U/L (41-126); Blood Urea Nitrogen 22.7 mg/dL (9.0-27.0); Calcium 8.7 mg/dL (8.7-10.3); Carbon Dioxide 23.7 mmol/L (21.6-31.8); Chloride 107 mmol/L (96-109); Globulin 1.9 g/dL (1.6-3.3); Glucose 203 mg/dL (70-110); Sodium 138 mmol/L (135-145); Total Bilirubin <0.2 mg/dL (0.3-1.2); Total Protein 5.9 g/dL (6.2-8.2)
[2024-08-01 12:01] LABS: Glucose,Whole Blood 224 mg/dL (70-110)
[2024-08-01] MEDS: DAPAGLIFLOZIN PROPANEDIOL 5 MG TABLET PO SCH (13:13)
[2024-08-01] MEDS: INSULIN GLARGINE (LANTUS) 100 UNIT/ML SYR SQ SCH (13:58)
--- NOTE | 2024-08-01 14:03 | P.HPIM ---
History of Present Illness 69-year-old male came in with complaints of hyperglycemia tested by his own continuous glucose monitoring system as well as finger test glucose. Patient had a steroid shot and Toradol shot for back pain yesterday after which his blood sugars started going up. Patient had a hemoglobin A1c of 8.9 patient blood sugars here are in 200s and 300s did not receive his long-acting insulin last night. Patient is on 20 units of Lantus sliding scale insulin Farxiga at home. These medications were resumed patient blood sugars are high as he did not receive his long-acting insulin last night. Patient was having symptoms of dizziness, increased urination and increased thirst and lightheadedness secondary to elevated blood sugars. Patient does not have DKA and patient is not in hyperosmolar state. REVIEW OF SYSTEMS: All other systems are negative except those mentioned in the HPI PHYSICAL EXAMINATION: GENERAL: The patient is alert and oriented x3, not in any acute distress. Well developed, well nourished. HEENT: Pupils are round and equally reacting to light. EOMI. No scleral icterus. No conjunctival pallor. Normocephalic, atraumatic. No pharyngeal erythema. No thyromegaly. CARDIOVASCULAR: S1 and S2 present. No murmurs, rubs, or gallops. PULMONARY: Chest is clear to auscultation, no wheezing or crackles. ABDOMEN: Soft, nontender, nondistended, normoactive bowel sounds. No palpable organomegaly. MUSCULOSKELETAL: No joint swelling or deformity. EXTREMITIES: No cyanosis, clubbing, or pedal edema. NEUROLOGICAL: Gross neurological examination did not reveal any focal deficits. SKIN: No rashes. Assessment and plan -Uncontrolled elevated blood sugars without any DKA or HHS: Elevated blood sugars versus secondary to systemic steroids since he had a intramuscular injection these elevated blood sugars are expected to last for couple more days. Although his hemoglobin A1c is elevated because of which I am increasing the Lantus to 28 units and rest of the regimen remains as it is not patient will be discharged today. Patient need to be on diabetic diet -Lightheadedness blurry vision: Secondary to elevated blood sugars - Coronary disease - Hyperlipidemia - Sleep apnea Patient will be discharged today with increased insulin that he is 28 units at nighttime Past Medical History Past Medical History: Coronary Artery Disease (CAD), Diabetes Mellitus, Hyperlipidemia, Myocardial Infarction ([place]), Neurologic Disorder, Osteoarthritis (OA), Skin Disorder, Sleep Apnea/CPAP/BIPAP Additional Past Medical History / Comment(s): carotid stenosis, hx childhood asthma, has c pap does not use, rosacea, stroke like episode from reaction to compazine(effected vision and hearing), varicose veins, hx kidney stones, "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 frequent UTI, covid infection 2021, Last Myocardial Infarction Date:: 2020 History of Any Multi-Drug Resistant Organisms: None Reported Past Surgical History: Heart Catheterization With Stent, Joint Replacement, Ort hopedic Surgery Additional Past Surgical History / Comment(s): cervical fusion, faustina hip replacement, septoplasty, arthroscopy rt knee, urolift, allograft on anterior neck Past Anesthesia/Blood Transfusion Reactions: No Reported Reaction Additional Past Anesthesia/Blood Transfusion Reaction / Comment(s): sever alg compazine. no hx blood transfusion Date of Last Stent Placement:: 05/10/2020 Past Psychological History: ADD/ADHD Smoking Status: Former smoker Past Alcohol Use History: None Reported Additional Past Alcohol Use History / Comment(s): started smoking in 20s,quit on and off, smoked socially now Past Drug Use History: None Reported Additional Drug Use History / Comment(s): rare use of gummy-none recently - Past Family History Mother Family Medical History: Cancer, Deep Vein Thrombosis (DVT) Medications and Allergies Home Medications Medication Instructions Recorded Confirmed Type Dextroamphetamine/Amphetamine 20 mg PO BID 05/22/16 07/31/24 History [Adderall] Aspirin 81 mg PO DAILY #0 chew 05/12/20 07/31/24 Rx Metoprolol Tartrate [Lopressor] 12.5 mg PO BID 02/16/23 07/31/24 History Atorvastatin [Lipitor] 80 mg PO DAILY #30 tab 05/03/23 07/31/24 Rx Clopidogrel [Plavix] 75 mg PO DAILY #30 tab 05/03/23 07/31/24 Rx Empagliflozin [Jardiance] 10 mg PO DAILY 07/31/24 07/31/24 History Ibuprofen [Motrin Ib] 200 mg PO BID 07/31/24 07/31/24 History Insulin Glargine,Hum.rec.anlog 20 units SQ HS 07/31/24 07/31/24 History [Lantus Solostar Pen] tadalafiL [Tadalafil] 5 mg PO DAILY 07/31/24 07/31/24 History Allergies Allergy/AdvReac Type Severity Reaction Status Date / Time duloxetine [From Cymbalta] Allergy Severe throat Verified 07/31/24 11:02 swelling, could not swallow prochlorperazine Allergy Severe states Verified 07/31/24 11:02 [From Compazine] "tongue stuck out and body stiffened" acyclovir Allergy Swelling Verified 07/31/24 11:02 levofloxacin [From Levaquin] Allergy Swelling Verified 07/31/24 11:02 Penicillins Allergy Swelling Verified 07/31/24 11:02 poison dylon extract Allergy generalized Verified 07/31/24 11:02 blisters and pain-goes ER poison oak extract Allergy generalized Verified 07/31/24 11:02 blisters and pain-goes ER poison sumac extract Allergy generalized Verified 07/31/24 11:02 blisters and pain-goes ER pregabalin [From Lyrica] AdvReac can't Verified 07/31/24 11:02 walk, muscle and joint pain Physical Exam Vitals: Vital Signs Temp Pulse Pulse Resp BP BP Pulse Ox 08/01/24 07:30 97.5 F L 76 20 154/74 98 08/01/24 01:43 98.2 F 80 17 156/90 95 07/31/24 19:41 97.6 F 76 17 145/60 98 07/31/24 17:25 98.2 F 74 16 149/75 100 07/31/24 16:25 72 18 152/77 99 Intake and Output 07/31/24 08/01/24 08/01/24 22:59 06:59 14:59 Intake Total 118 Balance 118 Intake: Oral 118 Other: Voiding Method Toilet # Voids 1 2 Weight 92.986 kg Results CBC & Chem 7: 08/01/24 05:27 08/01/24 05:27 Labs: Abnormal Lab Results - Last 24 Hours (Table) 07/31/24 07/31/24 08/01/24 Range/Units 17:23 19:22 05:27 RBC (4.40-5.60) X 10*6/uL BUN/Creatinine Ratio (12.00-20.00) Ratio Glucose (70-110) mg/dL POC Glucose (mg/dL) 195 H 216 H (70-110) mg/dL Hemoglobin A1c 8.9 H (<=6.0) % Total Bilirubin (0.3-1.2) mg/dL Total Protein (6.2-8.2) g/dL 08/01/24 08/01/24 08/01/24 Range/Units 05:27 05:27 05:51 RBC 4.29 L (4.40-5.60) X 10*6/uL BUN/Creatinine Ratio 22.70 H (12.00-20.00) Ratio Glucose 203 H (70-110) mg/dL POC Glucose (mg/dL) 197 H (70-110) mg/dL Hemoglobin A1c (<=6.0) % Total Bilirubin <0.2 L (0.3-1.2) mg/dL Total Protein 5.9 L (6.2-8.2) g/dL 08/01/24 Range/Units 11:59 RBC (4.40-5.60) X 10*6/uL BUN/Creatinine Ratio (12.00-20.00) Ratio Glucose (70-110) mg/dL POC Glucose (mg/dL) 224 H (70-110) mg/dL Hemoglobin A1c (<=6.0) % Total Bilirubin (0.3-1.2) mg/dL Total Protein (6.2-8.2) g/dL Thrombosis Risk Factor Assmnt - Choose All That Apply Any of the Below Risk Factors Present?: Yes Each Factor Represents 1 point: Obesity (BMI >25), Varicose veins Other Risk Factors: Yes Each Risk Factor Represents 2 Points: Age 61-74 years Other congenital or acquired thrombophilia - If yes, enter type in comment: No Thrombosis Risk Factor Assessment Total Risk Factor Score: 4 Thrombosis Risk Factor Assessment Level: Moderate Risk
--- NOTE | 2024-08-01 14:05 | P.DS ---
Providers Date of admission: 07/31/24 14:19 Attending physician: Reuben Nicholson Primary care physician: Reuben Nicholson [facility] Course: 1-year-old male came in with complaints of hyperglycemia tested by his own continuous glucose monitoring system as well as finger test glucose. Patient had a steroid shot and Toradol shot for back pain yesterday after which his blood sugars started going up. Patient had a hemoglobin A1c of 8.9 patient blood sugars here are in 200s and 300s did not receive his long-acting insulin last night. Patient is on 20 units of Lantus sliding scale insulin Farxiga at home. These medications were resumed patient blood sugars are high as he did not receive his long-acting insulin last night. Patient was having symptoms of dizziness, increased urination and increased thirst and lightheadedness secondary to elevated blood sugars. Patient does not have DKA and patient is not in hyperosmolar state. REVIEW OF SYSTEMS: All other systems are negative except those mentioned in the HPI PHYSICAL EXAMINATION: GENERAL: The patient is alert and oriented x3, not in any acute distress. Well developed, well nourished. HEENT: Pupils are round and equally reacting to light. EOMI. No scleral icterus. No conjunctival pallor. Normocephalic, atraumatic. No pharyngeal erythema. No thyromegaly. CARDIOVASCULAR: S1 and S2 present. No murmurs, rubs, or gallops. PULMONARY: Chest is clear to auscultation, no wheezing or crackles. ABDOMEN: Soft, nontender, nondistended, normoactive bowel sounds. No palpable organomegaly. MUSCULOSKELETAL: No joint swelling or deformity. EXTREMITIES: No cyanosis, clubbing, or pedal edema. NEUROLOGICAL: Gross neurological examination did not reveal any focal deficits. SKIN: No rashes. Assessment and plan -Uncontrolled elevated blood sugars without any DKA or HHS: Elevated blood sugars versus secondary to systemic steroids since he had a intramuscular injection these elevated blood sugars are expected to last for couple more days. Although his hemoglobin A1c is elevated because of which I am increasing the Lantus to 28 units and rest of the regimen remains as it is not patient will be discharged today. Patient need to be on diabetic diet -Lightheadedness blurry vision: Secondary to elevated blood sugars - Coronary disease - Hyperlipidemia - Sleep apnea Patient will be discharged today with increased insulin that he is 28 units at nighttime Patient Condition at Discharge: Fair Plan - Discharge Summary Discharge Rx Participant: No New Discharge Prescriptions: Continue Dextroamphetamine/Amphetamine [Adderall] 20 mg PO BID Aspirin 81 mg PO DAILY #0 chew Metoprolol Tartrate [Lopressor] 12.5 mg PO BID Clopidogrel [Plavix] 75 mg PO DAILY #30 tab tadalafiL [Tadalafil] 5 mg PO DAILY Atorvastatin [Lipitor] 80 mg PO DAILY #30 tab Ibuprofen [Motrin Ib] 200 mg PO BID Empagliflozin [Jardiance] 10 mg PO DAILY Changed Insulin Glargine,Hum.rec.anlog [Lantus Solostar Pen] 28 units SQ HS #0 Discharge Medication List Dextroamphetamine/Amphetamine [Adderall] 20 mg PO BID 05/22/16 [History] Aspirin 81 mg PO DAILY #0 chew 05/12/20 [Rx] Metoprolol Tartrate [Lopressor] 12.5 mg PO BID 02/16/23 [History] Atorvastatin [Lipitor] 80 mg PO DAILY #30 tab 05/03/23 [Rx] Clopidogrel [Plavix] 75 mg PO DAILY #30 tab 05/03/23 [Rx] Empagliflozin [Jardiance] 10 mg PO DAILY 07/31/24 [History] Ibuprofen [Motrin Ib] 200 mg PO BID 07/31/24 [History] tadalafiL [Tadalafil] 5 mg PO DAILY 07/31/24 [History] Insulin Glargine,Hum.rec.anlog [Lantus Solostar Pen] 28 units SQ HS #0 08/01/24 [Rx] Follow up Appointment(s)/Referral(s): Reuben Nciholson MD [Primary Care Provider] - 3 Days Discharge Disposition: HOME SELF-CARE
[2024-08-01 14:27] VITALS: BP 153/71; PULSE 69; RESP 17; TEMP 98.2
[2024-08-01] MEDS ORDERED: INSULIN GLARGINE (LANTUS) 100 UNIT/ML SYR SQ SCH (21:00)
[2024-08-01] MEDS ORDERED: NON FORMULARY DRUG (Insulin Glargine,Hum.Rec.Anlog [Lantus Solostar Pen] 100 UNIT/ML Insul SQ SCH (21:00)
== END 2024-08-01 14:50 | disposition home or self-care (01) ==
LOC: EC 10:38 → 6NMEDSUR 14:19
PROVIDERS: ADMIT Family Medicine; ATTEND Family Medicine
DX: E11.65 Type 2 diabetes mellitus with hyperglycemia (principal); I25.10 Atherosclerotic heart disease of native coronary artery without angina pectoris; E78.5 Hyperlipidemia, unspecified; I83.90 Asymptomatic varicose veins of unspecified lower extremity; G47.30 Sleep apnea, unspecified; E66.9 Obesity, unspecified; Z68.27 Body mass index [BMI] 27.0-27.9, adult; Z79.82 Long term (current) use of aspirin; Z79.02 Long term (current) use of antithrombotics/antiplatelets; Z79.4 Long term (current) use of insulin; Z79.84 Long term (current) use of oral hypoglycemic drugs; Z79.899 Other long term (current) drug therapy; Z88.1 Allergy status to other antibiotic agents; Z88.3 Allergy status to other anti-infective agents; Z88.0 Allergy status to penicillin; Z88.8 Allergy status to other drugs, medicaments and biological substances; Z91.048 Other nonmedicinal substance allergy status; Z87.891 Personal history of nicotine dependence
CPT/HCPCS: 96360; 96361; 99285; 36415; 93005; 80053 ×2; 82009; 83605; 83735; 85025 ×2; 85610; 85730; 83036; 71046; G0378 ×2